=== PATIENT | female | born 1955 | race Caucasian/White ===

== ENCOUNTER → 2017-08-24 11:49 | Outpatient (CLI) | payer OTHER, SELFPAY ==
--- NOTE | 2017-08-24 | DI.MG.S_ITS ---
BILATERAL DIGITAL SCREENING MAMMOGRAM 3D/2D WITH CAD: 08/24/2017 CLINICAL: Routine screening. Comparison is made to exams dated: 08/02/2016 mammogram, 07/30/2015 mammogram, and 07/23/2014 mammogram - [facility]. The tissue of both breasts is heterogeneously dense. This may lower the sensitivity of mammography. Current study was also evaluated with a Computer Aided Detection (CAD) system. No significant masses, calcifications, or other findings are seen in either breast. There has been no significant interval change. IMPRESSION: NEGATIVE There is no mammographic evidence of malignancy. A 1 year screening mammogram is recommended. This exam was interpreted at Station ID: [id number]. NOTE: For mammograms, a report in lay terms will be sent to the patient. Approximately 15% of breast malignancies will not be visualized mammographically. In the management of a palpable breast mass, a negative mammogram must not discourage biopsy of a clinically suspicious lesion. Electronically Signed By: Manjinder montiel/sera:08/24/2017 16:56:02 letter sent: Normal Exam ACR BI-RADS Category 1: Negative 3341F
== END ==
PROVIDERS: PCP Family Medicine; Visit Provider Family Medicine
DX: Z12.31 Encounter for screening mammogram for malignant neoplasm of breast (principal)
CPT/HCPCS: 77063; 77067

== ENCOUNTER → 2017-09-21 11:42 | Outpatient (CLI) | payer OTHER, SELFPAY | PROVIDERS: Family Provider Internal Medicine; PCP Internal Medicine; Visit Provider Internal Medicine | DX: M54.10 Radiculopathy, site unspecified (principal) | CPT/HCPCS: 95885; 95886; 95911 ==

== ENCOUNTER → 2017-09-27 09:57 | Outpatient (CLI) | payer OTHER, SELFPAY ==
[2017-09-27 11:38] LABS: Thyroid Stimulating Hormone 0.03 uIU/mL (0.47-4.68)
== END ==
PROVIDERS: Family Provider Internal Medicine; PCP Internal Medicine; Visit Provider Internal Medicine
DX: G56.03 Carpal tunnel syndrome, bilateral upper limbs (principal)
CPT/HCPCS: 36415; 84443

== ENCOUNTER → 2017-09-28 11:46 | Outpatient (CLI) | payer OTHER, SELFPAY ==
[2017-09-28 13:21] LABS: Free T3, Triiodothyronine Free 3.17 pg/mL (2.77-5.27); Free T4, Direct Thyroxine 1.39 ng/dL (0.78-2.19)
[2017-09-28 13:35] LABS: Thyroid Stimulating Hormone 0.03 uIU/mL (0.47-4.68)
== END ==
PROVIDERS: Family Provider Internal Medicine; PCP Internal Medicine; Visit Provider Internal Medicine
DX: R79.89 Other specified abnormal findings of blood chemistry (principal)
CPT/HCPCS: 36415; 84439; 84443; 84481

== ENCOUNTER → 2017-11-01 14:30 | Outpatient (CLI) | payer OTHER, SELFPAY ==
[2017-11-01 15:47] LABS: Free T4, Direct Thyroxine 1.15 ng/dL (0.78-2.19)
[2017-11-01 16:01] LABS: Thyroid Stimulating Hormone 0.02 uIU/mL (0.47-4.68)
== END ==
PROVIDERS: Family Provider Specialist/Technologist Athletic Trainer; PCP Family Medicine; Visit Provider Internal Medicine
DX: R89.9 Unspecified abnormal finding in specimens from other organs, systems and tissues (principal)
CPT/HCPCS: 36415; 84439; 84443; 84481

== ENCOUNTER → 2017-11-02 11:39 | Outpatient (CLI) | payer OTHER, SELFPAY ==
[2017-11-02 14:46] LABS: Thyroid Stimulating Hormone 0.09 uIU/mL (0.47-4.68)
== END ==
PROVIDERS: Family Provider Specialist/Technologist Athletic Trainer; Visit Provider Internal Medicine
DX: R89.9 Unspecified abnormal finding in specimens from other organs, systems and tissues (principal)
CPT/HCPCS: 36415; 84443

== ENCOUNTER → 2018-04-12 13:46 | Outpatient (CLI) | payer MEDICARE, BC, SELFPAY | PROVIDERS: Family Provider Specialist/Technologist Athletic Trainer; PCP Student in an Organized Health Care Education/Training Program; Visit Provider Student in an Organized Health Care Education/Training Program | DX: Z13.820 Encounter for screening for osteoporosis (principal); M85.852 Other specified disorders of bone density and structure, left thigh; Z78.0 Asymptomatic menopausal state; M06.9 Rheumatoid arthritis, unspecified | CPT/HCPCS: 77080 ==

== ENCOUNTER → 2018-04-20 15:34 | Outpatient (CLI) | payer MEDICARE, BC, SELFPAY ==
--- NOTE | 2018-04-20 | DI.RAD.S_ITS ---
PROCEDURE: XR FOOT RT MIN 3V INDICATIONS: RHEUMATOID ARTHRITUS TECHNIQUE: 3 -views of the foot were acquired. COMPARISON: [facility], CR, XR FOOT LT MIN 3V, 04/20/2018, 15:51. FINDINGS: Bones: No fractures or dislocations. No suspicious bony lesions. Severe pes planus. There is diffuse midfoot joint degeneration, sclerosis. Diffuse interphalangeal and mild to moderate first MTP joint degeneration. Bunionette deformity of the fifth metatarsal. Flexion deformity of the second toe. Soft tissues: No tibiotalar joint effusion. Achilles tendon appears normal. IMPRESSION: Severe pes planus. Severe midfoot joint degeneration. Please correlate clinically to exclude neuropathic arthropathy. No definite erosions seen. Bunionette deformity of the fifth metatarsal Large plantar calcaneal spur Dictated by: Dayday Perales M.D. on 04/20/2018 at 17:05 Approved by: Dayday Perales M.D. on 04/20/2018 at 17:08
--- NOTE | 2018-04-20 | DI.RAD.S_ITS ---
PROCEDURE: XR FOOT LT MIN 3V INDICATIONS: RHEUMATOID ARTHRITUS TECHNIQUE: 3 views of the foot were acquired. COMPARISON: None. FINDINGS: Bones: No fractures or dislocations. No suspicious bony lesions. There is severe mid foot diffuse joint degeneration, sclerosis and spurring. Severe pes planus. No hallux valgus. Diffuse interphalangeal and first MTP joint degeneration. planus is seen. Periarticular osteopenia in particular at the fifth MTP joint. There are questionable marginal lucencies at the second and fifth MTP joint. Subluxation of the second TMT joint. Soft tissues: No tibiotalar joint effusion. Achilles tendon appears normal. IMPRESSION: Severe pes planus. Possible marginal lucencies seen at the second and fifth MTP joint raising the possibility of erosions Midfoot joint degeneration, including subluxation of the second TMT joint. Recommend clinical correlation to exclude neuropathic arthropathy. Diffuse interphalangeal and first MTP joint degeneration. Dictated by: Dayday Perales M.D. on 04/20/2018 at 16:46 Approved by: Dayday Perales M.D. on 04/20/2018 at 16:53
== END ==
PROVIDERS: Family Provider Specialist/Technologist Athletic Trainer; PCP Student in an Organized Health Care Education/Training Program; Referring Provider Orthopaedic Surgery; Visit Provider Specialist/Technologist Athletic Trainer
DX: M05.79 Rheumatoid arthritis with rheumatoid factor of multiple sites without organ or systems involvement (principal); M21.42 Flat foot [pes planus] (acquired), left foot; M19.072 Primary osteoarthritis, left ankle and foot; M19.071 Primary osteoarthritis, right ankle and foot; S93.322A Subluxation of tarsometatarsal joint of left foot, initial encounter; M21.622 Bunionette of left foot; M21.621 Bunionette of right foot; M77.31 Calcaneal spur, right foot
CPT/HCPCS: 73630

== ENCOUNTER → 2018-05-23 19:07 | Outpatient (CLI) | payer MEDICARE, BC, SELFPAY ==
--- NOTE | 2018-05-23 19:11 | DI.MRI.S_ITS ---
PROCEDURE: MR LUMBAR SPINE WO CON INDICATIONS: EVAL TECHNIQUE: Noncontrast sagittal T1 spin echo and T2 fast echo, sagittal STIR, axial T1 and T2 fast spin echo through the lumbar spine. In cases with scoliosis, additional coronal T2 fast spin echo may be performed. COMPARISON: [facility], MR, L-SPINE WITHOUT CONTRAST, 10/01/2013, 18:59. [facility], CR, L-SPINE 2-3 VIEWS, 09/20/2013, 11:28. FINDINGS: Image quality: Excellent. Alignment and Curvature: There is normal bony alignment. Bone Marrow: There is an intraosseous hemangioma in T12. Degenerative endplate signal changes are present. No acute vertebral body compression fractures. Spinal Cord: Conus medullaris terminates at the L1 level. Visualized cord demonstrates normal signal and size. Paraspinous Soft Tissues: No paravertebral masses. There are several right renal cysts. T12-L1: Mild loss of disc height and disc desiccation. There is mild posterior disc bulge. The central canal is patent. No foraminal stenosis. L1-L2: Moderate to severe loss of disc height and disc desiccation. There is diffuse posterior disc bulge. There is posterior central and bilateral posterolateral disc protrusion. Mild bilateral facet arthropathy. The central canal is mcyz-jy-vpfjuatzdm narrowed. Severe foraminal stenosis bilaterally. Compared to the last MRI on 10/01/2013, there is significant worsening of disc and facet degeneration. Central canal stenosis is new. L2-L3: Moderate loss of disc height and disc desiccation. There is diffuse posterior disc bulge. There is posterior central and left posterolateral disc protrusion. Mild bilateral facet arthropathy. The central canal is dazh-ae-gcudjtdtwb narrowed. Moderate left and mild right foraminal stenosis, unchanged. L3-L4: Moderate loss of disc height and disc desiccation. There is diffuse posterior disc bulge. There is posterior central and left posterolateral disc protrusion. Mild bilateral facet arthropathy. The central canal is mrsf-tv-qpkjewiyas narrowed. Severe left and mild right foraminal stenosis, increased. L4-L5: Severe loss of disc height and disc desiccation. There is diffuse posterior disc bulge and disc osteophyte complex. Mild bilateral facet arthropathy. The central canal is patent. Moderate bilateral foraminal stenosis, unchanged. L5-S1: Mild loss of disc height and disc desiccation. There is diffuse posterior disc bulge. Mild bilateral facet arthropathy. The central canal is patent. Mild bilateral foraminal stenosis, unchanged. IMPRESSION: 1. Progression of degenerative disc disease and facet arthropathy in lumbar spine as described. 2. Wxzk-xi-svmkmvlu central canal stenosis at L1-L2, L2-L3 and L3-L4. 3. Multiple foraminal stenosis as described, severe at L1-L2 bilaterally and L3-L4 on the left, moderate at L2-L3 on the left and L4-L5 bilaterally. Dictated by: Sophy Fowler M.D. on 05/24/2018 at 9:06 Approved by: Sophy Fowler M.D. on 05/24/2018 at 12:35
== END ==
PROVIDERS: Family Provider Student in an Organized Health Care Education/Training Program; PCP Student in an Organized Health Care Education/Training Program; Visit Provider Physical Medicine & Rehabilitation
DX: M47.27 Other spondylosis with radiculopathy, lumbosacral region (principal); M47.26 Other spondylosis with radiculopathy, lumbar region; M51.16 Intervertebral disc disorders with radiculopathy, lumbar region; M51.17 Intervertebral disc disorders with radiculopathy, lumbosacral region; M48.07 Spinal stenosis, lumbosacral region; M48.061 Spinal stenosis, lumbar region without neurogenic claudication
CPT/HCPCS: 72148

== ENCOUNTER 2018-07-05 11:23 | Outpatient (CLI) | payer MEDICARE, BC, SELFPAY ==
[2018-07-05] VITALS (8 sets, daily range): BP systolic 130–159; BP diastolic 75–89; PULSE 84–102; RESP 16–18; TEMP 36.2; O2SAT 94–97
--- NOTE | 2018-07-05 11:25 | DI.RAD.S_ITS ---
PROCEDURE: PAIN L/S TRANSFORAMINAL INJECT INDICATIONS: RADICULOPATHY FINDINGS: Fluoroscopic spot filming was performed to verify placement of spinal needles at the left L3-L4 level(s), as labeled on the films. Appropriate location(s) of the needle tip(s) was confirmed by injection of iodinated contrast. IMPRESSION: Fluoroscopy for pain management. Dictated by: Sophy Fowler M.D. on 07/05/2018 at 14:13 Approved by: Sophy Fowler M.D. on 07/05/2018 at 14:13
[2018-07-05] MEDS: MIDAZOLAM 5 MG/5 ML VIAL IV (12:05)
--- NOTE | 2018-07-05 12:20 | PM.PROC.1 ---
Procedures Date/Time Date of procedure: 07/05/18 Time of procedure: 12:20 General Procedure description: PROVIDER: Tanner Gillespie DO Operative Note PREOP DIAGNOSIS 1. FORAMINAL STENOSIS WITH LE SYMPTOMS, POST OP DIAGNOSIS 1. FORAMINAL STENOSIS WITH LE SYMPTOMS, PROCEDURES 1. FLUOROSCOPICALLY GUIDED CONTRAST CONTROLLED TRANSFORAMINAL EPIDURAL STEROID INJECTION - LEFT L3/4 TFESI SURGEON: Tanner Gillespie, DO INDICATIONS Ernestina is referred by Dr. Silva for treatment of HNP with left greater than right LE Symptoms FINDINGS Foraminal Nerve Root Compression secondary to disc disease and facet hypertrophy DESCRIPTION OF PROCEDURE Following denial of allergy and review of potential side effects and complications, including, but not necessarily limited to, infection, allergic reaction, local tissue breakdown, stroke, temporary or permanent nerve injury, paralysis, and possible , the patient indicated that the patient understood and agreed to proceed. An informed consent document was signed by the patient, witnessed by a nurse, and placed in the patient's chart. Additionally, other treatment options including medications, modalities, and physical therapy were reviewed with the patient. After review of previous anaesthesic history and IV conscious sedation the patient was deemed safe to proceed with todays procedure with IV conscious sedation as ASA class II designation. Safety time-out was performed to confirm patient ID, procedure to be performed and site of procedure. IV sedation was accomplished with a combination of 3mg of Versed was administered by the RN after DO order, titrated to patient comfort during the course of the procedure while the patient remained responsive to all verbal commands In the prone position following sterile prep and drape of the lumbar region, the left L3/4 posterior neuroforamen was identified fluoroscopically. The skin was anesthetized via a 25-gauge 1.5-inch needle with 1% lidocaine solution. At this point, a 25-gauge 3.5-inch spinal needle was atraumatically introduced and advanced under fluoroscopic guidance through the posterior left L3/4 neuroforamen to approximately the anterior aspect of the canal. Depth was confirmed on lateral view. Following negative aspiration, injection of approximately 1.5 cc of Isovue 200 under live fluoroscopy in the AP view confirmed excellent flow along the nerve root, into the epidural space without vascular or intrathecal uptake observed Radiological data, including multiple fluoroscopic views of the lumbosacral spine, reveal a spinal needle at the left L3/4 posterior neuroforamen. Subsequent views show flow of contrast material flowing superiorly and inferiorly along the nerve root confirming epidural flow. Subsequently, a test dose of 1.5 cc of 1% lidocaine solution was administered and patient was observed for two minutes for signs or symptoms of complications, including abdominal pain, shortness of breath, bilateral upper or lower extremity weakness, nausea and vomiting, prior to steroid injection. At this point, a total of 2cc or 20mg of dexamethasone was injected without incident. The patient tolerated the procedure well without signs or symptoms of complications prior to transfer to the recovery area continued monitoring without incident. The patient was then transferred to the recovery area where they were observed for an appropriate time after the injection. The patient reported a VAS score of 7 prior to the procedure and a post-procedure VAS of 0. Total Fluoroscopy Time: 24.2 seconds Total Conscious Sedation Time: 24min POST OP INSTRUCTIONS The patient was provided a Pain Log to continue to record their response to the target-specific procedure prior to follow-up visit with their referring physician. Additionally, specific post-injection care instructions and a contact number to our office were provided if concerns arise regarding possible complications associated with the procedure are suspected. Tanner Gillespie DO Complications: none
--- NOTE | 2018-07-05 12:24 | PC.NURSE ---
pt tolerated procedure well. Able to get off the table with standby assist. Transferred pt via wheelchair to pre procedure room for continued monitoring with Krystina PATEL.
[2018-07-05] MEDS: BETAMETHASONE 30 MG/5 ML MDV 6 MG INJ (12:27)
[2018-07-05] MEDS: BUPIVACAINE 0.25% (PF) VIAL 2 ML INJ (12:27)
[2018-07-05] MEDS: IOPAMIDOL 15 ML VIAL 3 ML INJ (12:27)
[2018-07-05] MEDS: DEXAMETHASONE 10 MG/ML VIAL 20 MG INJ (12:28)
== END 2018-07-05 13:28 | disposition home or self-care (01) ==
LOC: RAD 11:24
PROVIDERS: Family Provider Student in an Organized Health Care Education/Training Program; PCP Student in an Organized Health Care Education/Training Program; Visit Provider Physical Medicine & Rehabilitation
DX: M48.061 Spinal stenosis, lumbar region without neurogenic claudication (principal); M51.16 Intervertebral disc disorders with radiculopathy, lumbar region
CPT/HCPCS: 64483; 99152; J0702; J1100; J2250; J3010

== ENCOUNTER → 2018-08-02 15:31 | Outpatient (CLI) | payer MEDICARE, OTHER, SELFPAY ==
--- NOTE | 2018-08-02 15:34 | DI.RAD.S_ITS ---
PROCEDURE: XR CERVICAL SPINE 2V OR 3V INDICATIONS: neck pain TECHNIQUE: 3 view(s) of the cervical spine were acquired. COMPARISON: Located [facility] , C-SPINE COMPLETE 6 OR MORE VWS, 04/09/2015, 16:42. [facility], CERVICAL SPINE 2 OR 3 VIEWS, 08/25/2016, 15:42. FINDINGS: Bones: No definitive fractures or dislocations, but odontoid view is suboptimal. No suspicious bony lesions. There is grade 1 anterolisthesis of C4 on C5. There is severe bilateral facet arthropathy, most no set C3-C4 and C4-C5 on the left and C5-C6 on the right Soft tissues: No prevertebral soft tissue swelling. IMPRESSION: 1. Severe bilateral facet arthropathy. 2. Odontoid view is suboptimal. Dictated by: Sophy Fowler M.D. on 08/02/2018 at 16:53 Approved by: Sophy Fowler M.D. on 08/02/2018 at 16:56
== END ==
PROVIDERS: Family Provider Student in an Organized Health Care Education/Training Program; PCP Student in an Organized Health Care Education/Training Program; Visit Provider Nurse Practitioner Family
DX: M54.2 Cervicalgia (principal); M47.812 Spondylosis without myelopathy or radiculopathy, cervical region
CPT/HCPCS: 72040

== ENCOUNTER → 2018-08-14 08:18 | Outpatient (CLI) | payer MEDICARE, OTHER, SELFPAY ==
--- NOTE | 2018-08-14 08:19 | DI.MRI.S_ITS ---
PROCEDURE: MR SHOULDER LT WO CON INDICATIONS: Left shoulder weakness TECHNIQUE: Noncontrast oblique coronal T2 fast spin echo with fat saturation, oblique sagittal T1 spin echo and T2 fast spin echo with fat saturation, axial T1 spin echo and T2 fast spin echo with fat saturation through the shoulder. COMPARISON: [facility], MR, SHOULDER WITHOUT CONTRAST, 04/19/2013, 15:18. [facility], CR, XR SHOULDER MIN 2VW RT, 12/23/2015, 15:26. FINDINGS: Image quality: Excellent. Rotator cuff: There are full-thickness tear of the supraspinatus and infraspinatus subscapularis tendons with tendon retraction. The subscapularis tendon is torn. There is dislocation of the long head of the biceps tendon as it is the occipital groove. There is supraspinatus and infraspinatus muscle atrophy. Bones and bursae: No bone marrow contusions or fractures. There is superior subluxation of the humeral head at the glenohumeral joint. Severe glenohumeral and moderate acromioclavicular joint degeneration. There is small glenohumeral joint effusion. The acromion demonstrates conventional anatomy, without an os acromiale. No pathologic subacromial-subdeltoid or subcoracoid bursal fluid is present. Small joint effusion. Capsule and soft tissues: There is degenerative labral tear of the superior, anterior and posterior labrum. In the absence of intra-articular contrast, the glenohumeral ligaments appear intact. The long head of the biceps tendon is dislocated anteromedially. The rotator interval appears normal, without fibrosis. The coracohumeral ligament is normal in thickness. Mild edema in the deltoid muscle. IMPRESSION: 1. Full thickness tear of the supraspinatus, infraspinatus and subscapularis tendons. There is supraspinatus and infraspinatus tendon retraction and muscle atrophy. 2. Severe glenohumeral and moderate acromioclavicular joint degeneration. 3. Degenerative tear of the superior, anterior and posterior labrum. 4. Small glenohumeral joint effusion. 5. Mild edema in the deltoid muscle. Dictated by: Sophy Fowler M.D. on 08/14/2018 at 12:08 Approved by: Sophy Fowler M.D. on 08/14/2018 at 18:09
== END ==
PROVIDERS: PCP Student in an Organized Health Care Education/Training Program; Visit Provider Student in an Organized Health Care Education/Training Program
DX: R29.898 Other symptoms and signs involving the musculoskeletal system (principal); M75.122 Complete rotator cuff tear or rupture of left shoulder, not specified as traumatic; S43.492A Other sprain of left shoulder joint, initial encounter; M19.012 Primary osteoarthritis, left shoulder; M25.412 Effusion, left shoulder
CPT/HCPCS: 73221

== ENCOUNTER → 2018-08-28 08:25 | Outpatient (CLI) | payer MEDICARE, OTHER, SELFPAY ==
--- NOTE | 2018-08-28 | DI.MG.S_ITS ---
BILATERAL DIGITAL SCREENING MAMMOGRAM 3D/2D WITH CAD: 08/28/2018 CLINICAL: Routine screening. Comparison is made to exams dated: 08/24/2017 mammogram, 08/02/2016 mammogram, and 07/30/2015 mammogram - [facility]. The tissue of both breasts is heterogeneously dense. This may lower the sensitivity of mammography. Current study was also evaluated with a Computer Aided Detection (CAD) system. No significant masses, calcifications, or other findings are seen in either breast. There has been no significant interval change. IMPRESSION: NEGATIVE There is no mammographic evidence of malignancy. A 1 year screening mammogram is recommended. This exam was interpreted at Station ID: [id number]. NOTE: For mammograms, a report in lay terms will be sent to the patient. Approximately 15% of breast malignancies will not be visualized mammographically. In the management of a palpable breast mass, a negative mammogram must not discourage biopsy of a clinically suspicious lesion. Electronically Signed By: Sonia mi/sera:08/28/2018 10:22:48 letter sent: Normal Exam ACR BI-RADS Category 1: Negative 3341F
[2018-08-28 09:18] LABS: Hematocrit 35.6 % (36-46); Hemoglobin 11.8 g/dL (12.0-16.0); Mean Corpuscular HGB Conc 33.3 % (30-36); Mean Corpuscular Volume 90.3 fL (80-100); Platelet Count 223 X10^3/uL (150-400); Red Blood Cell Count 3.94 X10^6/uL (4.0-5.2); Red Cell Distribution Width 14.9 % (11.6-14.8); White Blood Cell Count 3.2 X10^3/uL (4.5-11.0)
[2018-08-28 09:34] LABS: BUN Creatinine Ratio 32.5 (6-22); Blood Urea Nitrogen 13 mg/dL (7-17); Calcium 9.5 mg/dL (8.4-10.2); Carbon Dioxide 29 mmol/L (22-32); Chloride 104 mmol/L (98-107); Estimated Glomerular Filt Rate > 60.0 mL/min (>60); Glucose 100 mg/dL (80-110); HEMOLYSIS < 15 (0-50); Potassium 3.9 mmol/L (3.4-5.1); Sodium 139 mmol/L (137-145)
== END ==
PROVIDERS: PCP Student in an Organized Health Care Education/Training Program; Visit Provider Student in an Organized Health Care Education/Training Program
DX: Z12.31 Encounter for screening mammogram for malignant neoplasm of breast (principal); Z01.810 Encounter for preprocedural cardiovascular examination; N14.1 Nephropathy induced by other drugs, medicaments and biological substances; T46.5X1A Poisoning by other antihypertensive drugs, accidental (unintentional), initial encounter
CPT/HCPCS: 36415; 77063; 77067; 80048; 85027

== ENCOUNTER → 2018-10-19 14:51 | Outpatient (CLI) | payer MEDICARE, OTHER, SELFPAY ==
--- NOTE | 2018-10-19 14:55 | DI.CT.S_ITS ---
PROCEDURE: CT ABDOMEN PELVIS W CON INDICATIONS: Abdominal pain TECHNIQUE: After the administration of intravenous contrast, 5 mm thick sections acquired from the diaphragm to the symphysis. 5 mm coronal and sagittal reformats were acquired. For radiation dose reduction, the following was used: automated exposure control, adjustment of mA and/or kV according to patient size. COMPARISON: None. FINDINGS: Image quality: Excellent. ABDOMEN: Lung bases: Lung bases are clear. Heart size is normal. Solid organs: Liver is normal in size and enhancement. Gallbladder is unremarkable. Biliary system is non dilated. Pancreas enhances normally. Spleen is normal in size and enhancement. No adrenal nodules. Kidneys demonstrate normal size and enhancement, without hydronephrosis. Peritoneum and bowel: Mild sigmoid diverticulosis no evidence of diverticulitis. Bowel loops demonstrate normal wall thickness and caliber. No free fluid or air. Nodes and vessels: No retroperitoneal or mesenteric adenopathy by size criteria. Aorta and inferior vena cava are normal in size. Miscellaneous: No ventral hernias. PELVIS: Genitourinary: Bladder wall thickness is normal. Miscellaneous: No inguinal hernias or adenopathy. Remote hysterectomy. On the sagittal reformatted images, extrinsic to the base of the bladder, and extending to the base of the bladder is an ill-defined soft tissue density. This is of uncertain significance. The bladder is distended. Bones: No suspicious bony lesions. No vertebral body compression fractures. IMPRESSION: 1. No evidence of acute appendicitis or diverticulitis. 2. Mild sigmoid diverticulosis. 3. Remote hysterectomy. 4. Ill-defined irregular soft tissue immediately inferior to the base the bladder extending to the base of the bladder may potentially be postsurgical in nature. However, cannot exclude a mass. Recommend correlation with pelvic exam. Dictated by: Bismark Aguilar M.D. on 10/19/2018 at 17:02 Approved by: Bismark Aguilar M.D. on 10/19/2018 at 17:16
== END ==
PROVIDERS: PCP Student in an Organized Health Care Education/Training Program; Visit Provider Student in an Organized Health Care Education/Training Program
DX: R10.9 Unspecified abdominal pain (principal); K57.30 Diverticulosis of large intestine without perforation or abscess without bleeding; Z90.710 Acquired absence of both cervix and uterus; Z92.89 Personal history of other medical treatment
CPT/HCPCS: 36415; 74177; 82565; 84520; Q9967

== ENCOUNTER → 2018-10-19 15:34 | Outpatient (CLI) | payer MEDICARE, OTHER, SELFPAY ==
[2018-10-19 16:12] LABS: BUN Creatinine Ratio 27.5 (6-22); Blood Urea Nitrogen 11 mg/dL (7-17); Estimated Glomerular Filt Rate > 60.0 mL/min (>60)
== END ==
PROVIDERS: PCP Student in an Organized Health Care Education/Training Program; Visit Provider Student in an Organized Health Care Education/Training Program
DX: R10.9 Unspecified abdominal pain (principal); Z92.89 Personal history of other medical treatment
CPT/HCPCS: 36415; 82565; 84520

== ENCOUNTER → 2019-07-10 07:47 | Outpatient (CLI) | payer MEDICARE, OTHER, SELFPAY ==
[2019-07-10 08:15] LABS: Add Manual Diff / Slide Review NO; Basophils Absolute Auto 0 /uL (0-100); Basophils Percent Auto 0.9 % (0-2); Eosinophils Absolute Auto 0 /uL (0-450); Eosinophils Percent Auto 0.6 % (2-4); Hemoglobin 11.1 g/dL (12.0-16.0); Lymphocytes Absolute Auto 900 /uL (1100-4500); Lymphocytes Percent Auto 22.8 % (25-40); Mean Corpuscular HGB Conc 33.5 % (30-36); Mean Corpuscular Hemoglobin 30.1 PG (26-34); Mean Corpuscular Volume 89.9 fL (80-100); Monocytes Absolute Auto 600 /uL (0-900); Monocytes Percent Auto 16.4 % (3-14); Neutrophils Absolute Auto 2300 /uL (1500-7000); Neutrophils Percent Auto 59.3 % (50-75); Platelet Count 223 X10^3/uL (150-400); Red Blood Cell Count 3.68 X10^6/uL (4.0-5.2); Red Cell Distribution Width 15.5 % (11.6-14.8); White Blood Cell Count 3.9 X10^3/uL (4.5-11.0)
[2019-07-10 08:34] LABS: Alanine Aminotransferase 22 IU/L (<35); Albumin 4.2 g/dL (3.5-5.0); Albumin Globulin Ratio 1.2 (1.0-2.8); Alkaline Phosphatase 56 U/L (38-126); Aspartate Aminotransferase 33 IU/L (14-36); BUN Creatinine Ratio 31.9 (6-22); Bilirubin Total 0.5 mg/dL (0.2-1.3); Blood Urea Nitrogen 15 mg/dL (7-17); Calcium 9.6 mg/dL (8.4-10.2); Carbon Dioxide 26 mmol/L (22-32); Chloride 107 mmol/L (98-107); Estimated Glomerular Filt Rate > 60.0 mL/min (>60); Globulin 3.5 g/dL (1.7-4.1); Glucose 99 mg/dL (80-110); HEMOLYSIS < 15 (0-50); Potassium 3.7 mmol/L (3.4-5.1); Sodium 138 mmol/L (137-145); Total Protein 7.7 g/dL (6.3-8.2)
[2019-07-10 08:36] LABS: C-Reactive Protein Quant < 0.5 mg/dL (<1.0)
[2019-07-10 08:40] LABS: Erythrocyte Sedimentation Rate 21 MM/HR (0-20)
== END ==
PROVIDERS: PCP Student in an Organized Health Care Education/Training Program; Referring Provider Internal Medicine Rheumatology; Visit Provider Internal Medicine Rheumatology
DX: M05.79 Rheumatoid arthritis with rheumatoid factor of multiple sites without organ or systems involvement (principal)
CPT/HCPCS: 36415; 80053; 85025; 85651; 86140

== ENCOUNTER → 2019-08-26 11:20 | Outpatient (CLI) | payer MEDICARE, BC, SELFPAY ==
[2019-08-27 15:41] LABS: COVID19 Sendout Not Detected (Not Detect)
== END ==
PROVIDERS: PCP Student in an Organized Health Care Education/Training Program; Visit Provider Physician Assistant
DX: Z01.812 Encounter for preprocedural laboratory examination (principal)
CPT/HCPCS: 87635

== ENCOUNTER 2019-08-28 08:02 | Day surgery (SDC) | payer MEDICARE, BC, SELFPAY ==
[2019-08-20 08:12] VITALS: BMI 30.2
[2019-08-28] MEDS: LACTATED RINGERS 1,000 ML 100 ML IV (08:15)
[2019-08-28 08:27] VITALS: BP 140/79; PULSE 55; RESP 16; TEMP 36.4; O2SAT 98
[2019-08-28 08:38] VITALS: BMI 30.2
--- NOTE | 2019-08-28 08:58 | PM.PREOP ---
Pre-operative Note COVID-19 COVID-19 status: Negative Result date/Date tested (Pos, Neg/Pending): 08/26/19 Interval Note History & Physical reviewed/Exam performed by Physician: Yes Changes to H&P: No
[2019-08-28] MEDS: CEFAZOLIN 2 GM/100 ML FROZ.PIGGY IV (09:02)
[2019-08-28] MEDS: metroNIDAZOLE 500 MG/100 ML PIGGYBACK 100 MG IV (09:12)
--- NOTE | 2019-08-28 09:27 | SUR.OPER ---
Prone on padded OR bed, head in foam head support, gel chest rolls, gel pad under knees, pillow under lower legs, toes free of pressure, arms secured on padded arm boards at <90 degrees abduction. Safety belt at thigh.
[2019-08-28] MEDS: DIBUCAINE 1% OINT 28 GM 1 APPLIC TOP (09:37)
[2019-08-28] MEDS: BUPIVACAINE LIPOSOME 266 MG/20 ML VIAL INJ (09:39)
--- NOTE | 2019-08-28 09:57 | P.OP_ITS ---
Operative Date/Time/Diagnoses Date of procedure: 08/28/19 Time of procedure: 09:57 Pre-op diagnosis: bleeding hemorrhoids Post-op diagnosis: other (circumferential grade 3 internal hemorrhoids with stigmata of bleeding at the posterior right column; moderate associated external hemorrhoids) Procedure & Clinicians Procedure: Internal and external Hemorrhoidectomy of 3 hemorrhoids columns Same procedure as scheduled: Yes Indications: This is a 64-year-old woman with symptomatic hemorrhoids with frequent bleeding Surgeon: Dionne Diaz Click Yes if Unassisted: Yes Anesthesia Type: General Operative Notes Findings: circumferentia grade 3 l internal hemorrhiods; moderate external hemorrhoids; 2-0 Vicryl sutures in base of left lateral and right anterior pedical Specimen(s): none sent Estimated Blood Loss (mL): 1 Procedure in detail: The patient was brought into the OR. Sequential compression devices were placed on both legs and turned on. Appropriate perioperative antibiotics were given. General anesthesia was induced and the patient was intubated. The patient was turned prone onto the OR table. All bony prominences were padded. The buttocks were taped apart. The perianal area was prepped and draped in sterile fashion with betadine prep. Surgical timeout was conducted. 0.25% Marcaine with epi was used to perform a four quadrant anal block using 5mL per quadrant for a total of 20mL. On external exam there were moderate external hemorrhoids seen. With copious lubricant, an anorectal exam was performed. Large internal hemorrhoids were seen circumferentially. The right posterior external hemorrhoid was grasped with an Allis clamp and dissected away from the sphincter muscles. Dissection was carried down to include the associated internal hemorrhoid, and the pedicle was sealed and divided, and the entire hemorrhoidal column was removed. The right anterior external hemorrhoid was grasped with an Allis clamp and dissected away from the sphincter muscles. Dissection was carried down to include the associated internal hemorrhoid, and the pedicle was sealed and divid ed, and the entire hemorrhoidal column was removed. The left lateral external hemorrhoid was grasped with an Allis clamp and dissected away from the sphincter muscles. Dissection was carried down to include the associated internal hemorrhoid, and the pedicle was sealed and divided, and the entire hemorrhoidal column was removed. A 2 0 Vicryl suture was used to suture the base of the pedicle at the right anterior and left lateral positions to ensure hemostasis. Good hemostasis was seen circumferentially, and all hemorrhoidal tissue was controlled. 20mL of Exparel was used to inject the anoderm and anal canal circumferentially 2-3mL per cm. A large Gelfoam was then coated and rolled with Dibucaine and placed in the anal canal. A thick layer of Dibucaine was used to coat the anoderm. A stack of 4x4 gauze was then used to cover the anal opening and secured in place with medipore tape. The patient was transferred onto her hospital bed into supine position. She was then awakened from anesthesia and extubated. Needle, sponge, and instrument counts were correct x 2. The patient was transferred to the PACU in stable condition. Complications: none Post-operative Condition: stable Disposition: PACU
[2019-08-28 09:58] VITALS: BP 111/62; PULSE 107; RESP 12; TEMP 36.2; O2SAT 98
[2019-08-28] MEDS: BUPIVACAINE 0.25% W/ EPI 30 ML VIAL INJ (09:59)
[2019-08-28 10:03] VITALS: BP 124/60; PULSE 102; RESP 15; O2SAT 96
[2019-08-28 10:08] VITALS: BP 127/71; PULSE 99; RESP 15; O2SAT 95
[2019-08-28 10:13] VITALS: BP 135/78; PULSE 87; RESP 15; O2SAT 94
--- NOTE | 2019-08-28 10:16 | SUR.PHASEI ---
Patient denies any pain and is sitting up talking, eating ice chips without difficulty. VSS. Dressing to rectal area CDI.
[2019-08-28 10:18] VITALS: BP 131/73; PULSE 84; RESP 13; O2SAT 94
== END 2019-08-28 11:00 | disposition home or self-care (01) ==
LOC: OR 08:05
PROVIDERS: PCP Student in an Organized Health Care Education/Training Program; Referring Provider Surgery; Visit Provider Surgery
PROC: (CPT 46260; principal; 2019-08-28 09:15)
DX: K64.2 Third degree hemorrhoids (principal); K64.4 Residual hemorrhoidal skin tags; M79.7 Fibromyalgia; K21.9 Gastro-esophageal reflux disease without esophagitis; I10 Essential (primary) hypertension
CPT/HCPCS: 46260; C9290; J0690; J1100; J2250; J2405; J2704; J3010

== ENCOUNTER → 2019-09-28 14:48 | Outpatient (CLI) | payer MEDICARE, BC, SELFPAY ==
--- NOTE | 2019-09-28 | DI.MG.S_ITS ---
BILATERAL DIGITAL SCREENING MAMMOGRAM 3D/2D WITH CAD: 09/28/2019 CLINICAL: Routine screening. Comparison is made to exams dated: 08/28/2018 mammogram, 08/24/2017 mammogram, and 08/02/2016 mammogram - [facility]. The tissue of both breasts is heterogeneously dense. This may lower the sensitivity of mammography. Current study was also evaluated with a Computer Aided Detection (CAD) system. No significant masses, calcifications, or other findings are seen in either breast. There has been no significant interval change. IMPRESSION: NEGATIVE There is no mammographic evidence of malignancy. A 1 year screening mammogram is recommended. This exam was interpreted at Station ID: [id number]. NOTE: For mammograms, a report in lay terms will be sent to the patient. Approximately 15% of breast malignancies will not be visualized mammographically. In the management of a palpable breast mass, a negative mammogram must not discourage biopsy of a clinically suspicious lesion. Electronically Signed By: Daljit pascal/sera:09/30/2019 09:46:43 letter sent: Normal Exam ACR BI-RADS Category 1: Negative 3341F
== END ==
PROVIDERS: PCP Student in an Organized Health Care Education/Training Program; Referring Provider Student in an Organized Health Care Education/Training Program; Visit Provider Student in an Organized Health Care Education/Training Program
DX: Z12.31 Encounter for screening mammogram for malignant neoplasm of breast (principal)
CPT/HCPCS: 77063; 77067

== ENCOUNTER → 2019-11-06 10:13 | Outpatient (CLI) | payer MEDICARE, BC, SELFPAY ==
--- NOTE | 2019-11-06 10:41 | DI.RAD.S_ITS ---
PROCEDURE: XR THORACIC SPINE 3V INDICATIONS: Eval TECHNIQUE: 3 views of the thoracic spine were acquired. COMPARISON: None. FINDINGS: Bones: No fractures or dislocations. No suspicious bony lesions. Twelve pairs of ribs are noted, and appear intact where visualized. Zjww-cx-yefuxyxh degenerative disc disease along the thoracic spine. There is a mild degree of convex leftward scoliosis at the thoracolumbar junction. No compression fracture suspected, Soft tissues: No paravertebral stripe thickening. IMPRESSION: Euav-bm-gdnxbudc degenerative disc disease along the thoracic spine but no acute disease or evidence of definite spinal and foraminal stenosis. Dictated by: Ac Earl M.D. on 11/06/2019 at 13:02 Approved by: Ac Earl M.D. on 11/06/2019 at 13:03
--- NOTE | 2019-11-06 10:41 | DI.RAD.S_ITS ---
PROCEDURE: XR LUMBAR SPINE MIN 4V INDICATIONS: Eval TECHNIQUE: 4 views of the lumbar spine were acquired. COMPARISON: , , L-SPINE 2-3 VIEWS, 09/20/2013, 11:28. FINDINGS: Bones: 5 nonrib-bearing vertebrae are present. There is normal bony alignment. No vertebral body compression fractures. No suspicious bony lesions. Overall there is a moderate to moderately severe degree of degenerative disc height reduction and moderate facet osteoarthritis best seen from L3 through S1. Soft tissues: Overlying bowel gas pattern is normal. No suspicious soft tissue calcifications. Oblique images: No pars defects. IMPRESSION: Moderate degenerative disc disease overall, from the thoracolumbar junction through the lumbosacral junction. No acute trauma found, facet osteoarthritis becomes progressively more prominent from L3 through S1. Spinal and foraminal stenosis likely is present at least at L4-5 and L5-S1. Dictated by: Ac Earl M.D. on 11/06/2019 at 13:00 Approved by: Ac Earl M.D. on 11/06/2019 at 13:02
== END ==
PROVIDERS: PCP Student in an Organized Health Care Education/Training Program; Referring Provider Student in an Organized Health Care Education/Training Program; Visit Provider Student in an Organized Health Care Education/Training Program
DX: M85.852 Other specified disorders of bone density and structure, left thigh (principal); Z78.0 Asymptomatic menopausal state; M06.9 Rheumatoid arthritis, unspecified; M47.27 Other spondylosis with radiculopathy, lumbosacral region; M47.26 Other spondylosis with radiculopathy, lumbar region; M51.17 Intervertebral disc disorders with radiculopathy, lumbosacral region; M51.16 Intervertebral disc disorders with radiculopathy, lumbar region; M51.14 Intervertebral disc disorders with radiculopathy, thoracic region; M41.85 Other forms of scoliosis, thoracolumbar region
CPT/HCPCS: 72072; 72110; 77080

== ENCOUNTER → 2019-11-17 11:49 | Outpatient (CLI) | payer MEDICARE, BC, SELFPAY ==
[2019-11-18 09:44] LABS: COVID19 Sendout Not Detected (Not Detect)
== END ==
PROVIDERS: PCP Student in an Organized Health Care Education/Training Program; Visit Provider Nurse Practitioner
DX: Z11.59 Encounter for screening for other viral diseases (principal)
CPT/HCPCS: 87635

== ENCOUNTER 2019-11-20 09:23 | Day surgery (SDC) | payer MEDICARE, BC, SELFPAY ==
[2019-11-15 08:45] VITALS: BMI 30.2
[2019-11-20] VITALS (7 sets, daily range): BP systolic 129–148; BP diastolic 76–88; PULSE 86–107; RESP 12–17; TEMP 36.6; O2SAT 92–97; BMI 30.9
[2019-11-20] MEDS: LACTATED RINGERS 1,000 ML 100 ML IV (10:15)
[2019-11-20] MEDS: levoFLOXacin 500 MG/100 ML PIGGYBACK 100 MG IV (10:36)
--- NOTE | 2019-11-20 10:48 | PM.PREOP ---
Pre-operative Note COVID-19 COVID-19 status: Negative Result date/Date tested (Pos, Neg/Pending): 11/17/19 Interval Note History & Physical reviewed/Exam performed by Physician: Yes Changes to H&P: No
[2019-11-20] MEDS: metroNIDAZOLE 500 MG/100 ML PIGGYBACK 100 MG IV (11:24)
--- NOTE | 2019-11-20 11:37 | PM.OP.1 ---
Operative Date/Time/Diagnoses Date of procedure: 11/20/19 Time of procedure: 11:37 Pre-op diagnosis: anal stenosis Post-op diagnosis: other (anal stenosis secondary to scarring of the anoderm) Procedure & Clinicians Procedure: Anorectal exam under anesthesia; repair of anal stenosis Same procedure as scheduled: Yes Indications: Anal stenosis Surgeon: Dionne Daiz Click Yes if Unassisted: Yes Anesthesia Type: General Operative Notes Findings: Stenosis of the anal opening Specimen(s): none sent Estimated Blood Loss (mL): 1 Procedure in detail: The patient was brought into the OR. Sequential compression devices were placed on both legs and turned on. Appropriate perioperative antibiotics were given. General anesthesia was induced and the patient was intubated. The patient was turned prone onto the OR table. All bony prominences were padded. The buttocks were taped apart. The perianal area was prepped and draped in sterile fashion with betadine prep. Surgical timeout was conducted. On external exam there were external hemorrhoid remnant tags, without bleeding or thrombosis. The anoderm was scarred from prior hemorrhoidectomy with a tight opening that would only emit the tip of my index finger. There was a lip of scar tissue at the anterior midline anoderm which was the location of the greatest tension. Local anesthetic was infiltrated at this site. A 15 blade was used to divide the scarred anoderm and relieve the stenosis. Cuatery was used to achieve hemostasis. Muscle tissue was not exposed. A rectal exam was then performed with well lubed index finger. I was now able to get two fingers in the anal canal, and was able to dilate up to three fingers. The sphincter muscle did not seem overly tight. Given the patient's history of mild leakage since her hemorrhoidectomy, I did not see a reason to perform a sphinctertomy. 20mL of Exparel was used to inject the anoderm and anal canal circumferentially 2-3mL per cm. A large Gelfoam was then coated and rolled with Dibucaine and placed in the anal canal. A thick layer of Dibucaine was used to coat the anoderm. A stack of 4x4 gauze was then used to cover the anal opening and secured in place with medipore tape. The patient was transferred onto her hospital bed into supine position. She was then awakened from anesthesia and extubated. Needle, sponge, and instrument counts were correct x 2. The patient was transferred to the PACU in stable condition. Complications: none Post-operative Condition: stable Disposition: PACU
[2019-11-20] MEDS: BUPIVACAINE 0.25% W/ EPI 30 ML VIAL 10 ML INJ (11:53)
[2019-11-20] MEDS: OXYCODONE/ACETAMINOPHEN 5/325 TABLET 1 TAB PO (12:11)
== END 2019-11-20 13:42 | disposition home or self-care (01) ==
PROVIDERS: PCP Student in an Organized Health Care Education/Training Program; Referring Provider Surgery; Visit Provider Surgery
PROC: (CPT 46080; principal; 2019-11-20 11:15)
DX: K62.4 Stenosis of anus and rectum (principal); I10 Essential (primary) hypertension; K21.9 Gastro-esophageal reflux disease without esophagitis
CPT/HCPCS: 45500; J0330; J1100; J1956; J2405; J2704; J3010

== ENCOUNTER → 2019-12-30 15:18 | Outpatient (CLI) | payer MEDICARE, BC, SELFPAY ==
[2019-12-30 17:42] LABS: COVID19 -Nasal RAPID Negative (Negative)
== END ==
PROVIDERS: PCP Student in an Organized Health Care Education/Training Program; Visit Provider Physician Assistant
DX: Z11.59 Encounter for screening for other viral diseases (principal)
CPT/HCPCS: 87635

== ENCOUNTER → 2019-12-31 13:58 | Outpatient (CLI) | payer MEDICARE, OTHER, SELFPAY ==
[2019-12-31 15:17] LABS: Blood Urea Nitrogen 12 mg/dL (7-17); Calcium 9.4 mg/dL (8.4-10.2); Carbon Dioxide 29 mmol/L (22-32); Chloride 103 mmol/L (98-107); Estimated Glomerular Filt Rate > 60.0 mL/min (>60); Glucose 126 mg/dL (80-110); HEMOLYSIS < 15 (0-50); Potassium 3.1 mmol/L (3.4-5.1); Sodium 135 mmol/L (137-145)
[2019-12-31 15:24] LABS: NT-proBNP (BNP-Adult 18+) 29 pg/mL (<125)
== END ==
PROVIDERS: PCP Student in an Organized Health Care Education/Training Program; Referring Provider Student in an Organized Health Care Education/Training Program; Visit Provider Student in an Organized Health Care Education/Training Program
DX: I10 Essential (primary) hypertension (principal); R60.9 Edema, unspecified; I16.0 Hypertensive urgency
CPT/HCPCS: 36415; 80048; 83880

== ENCOUNTER 2019-12-31 15:24 | Outpatient (CLI) | payer MEDICARE, OTHER, SELFPAY ==
[2019-12-31] VITALS (11 sets, daily range): BP systolic 132–183; BP diastolic 81–101; PULSE 91–104; RESP 18–20; TEMP 36.1–36.6; O2SAT 93–100
--- NOTE | 2019-12-31 15:26 | DI.RAD.S_ITS ---
PROCEDURE: PAIN L/S TRANSFORAMINAL INJECT INDICATIONS: SPONDYLOSIS COMPARISON: [facility], , PAIN L/S TRANSFORAMINAL INJECT, 07/05/2018, 12:12. FINDINGS: Fluoroscopic spot filming was performed to verify placement of a spinal needle at the L3-4 level, as labeled on the films. Appropriate location of the needle tip was confirmed by injection of iodinated contrast. IMPRESSION: Intraprocedural examination within normal limits. Dictated by: Spenser Denson M.D. on 12/31/2019 at 16:24 Approved by: Spenser Denson M.D. on 12/31/2019 at 16:25
[2019-12-31] MEDS: MIDAZOLAM 5 MG/5 ML VIAL IV (16:08)
[2019-12-31] MEDS: fentaNYL 100 MCG/2 ML INJ 50 MCG IV (16:08)
[2019-12-31] MEDS: IOPAMIDOL 15 ML VIAL 3 ML INJ (16:11)
[2019-12-31] MEDS: BETAMETHASONE 30 MG/5 ML MDV 6 MG INJ (16:12)
[2019-12-31] MEDS: BUPIVACAINE 0.25% (PF) VIAL 2 ML INJ (16:12)
[2019-12-31] MEDS: DEXAMETHASONE 10 MG/ML VIAL 20 MG INJ (16:13)
--- NOTE | 2019-12-31 16:33 | P.PCN_ITS ---
Date/Time/Diagnoses Date of procedure: 12/31/19 Time of procedure: 16:33 Pre-procedure diagnosis: 1. FORAMINAL STENOSIS WITH LE SYMPTOMS Post-procedure diagnosis: same Procedure Notes Procedure: 1. FLUOROSCOPICALLY GUIDED CONTRAST CONTROLLED TRANSFORAMINAL EPIDURAL STEROID INJECTION - LEFT L3/4 TFESI Indications: Ernestina is referred by Dr. Silva for treatment of Foraminal Stenosis with left LE Symptoms Physician: Tanner Gillespie Total Fluoroscopy time (seconds): 23 Total sedation minutes: 19 Complications: none Procedure in detail & Post-procedure care: FINDINGS Foraminal Nerve Root Compression secondary to disc disease and facet hypertrophy DESCRIPTION OF PROCEDURE Following review of allergy and review of potential side effects and complications, including, but not necessarily limited to, infection, allergic reaction, local tissue breakdown, stroke, temporary or permanent nerve injury, paralysis, and possible , the patient indicated that the patient understood and agreed to proceed. An informed consent document was signed by the patient, witnessed by a nurse, and placed in the patient's chart. Additionally, other treatment options including medications, modalities, and physical therapy were reviewed with the patient. After review of previous anaesthesic history and IV conscious sedation the patient was deemed safe to proceed with today?s procedure with IV conscious sedation as ASA class II designation. Safety time-out was performed to confirm patient ID, procedure to be performed and site of procedure. IV sedation was accomplished with a combination of 3mg of Versed and 50mcg of Fentanyl was administered by the RN after DO order, titrated to patient comfort during the course of the procedure while the patient remained responsive to all verbal comm ands In the prone position following sterile prep and drape of the lumbar region, the left L3/4 posterior neuroforamen was identified fluoroscopically. The skin was anesthetized via a 25-gauge 1.5-inch needle with 1% lidocaine solution. At this point, a 25-gauge 3.5-inch spinal needle was atraumatically introduced and advanced under fluoroscopic guidance through the posterior left L3/4 neurofor amen to approximately the anterior aspect of the canal. Depth was confirmed on lateral view. Following negative aspiration, injection of approximately 1.5 cc of Isovue 200 under live fluoroscopy in the AP view confirmed excellent flow along the nerve root, into the epidural space without vascular or intrathecal uptake observed Radiological data, including multiple fluoroscopic views of the lumbosacral spine, reveal a spinal needle at the left L3/4 posterior neuroforamen. Subsequent views show flow of contrast material flowing superiorly and inferiorly along the nerve root confirming epidural flow. Subsequently, a test dose of 1.5cc of 1% lidocaine solution was administered and patient was observed for two minutes for signs or symptoms of complications, including abdominal pain, shortness of breath, bilateral upper or lower extremity weakness, nausea and vomiting, prior to steroid injection. At this point, a total of 3cc or 20mg of dexamethasone and 6mg betamethasone was injec jermain without incident. The patient tolerated the procedure well without signs or symptoms of complications prior to transfer to the recovery area continued monitoring without incident. The patient was then transferred to the recovery area where they were observed for an appropriate time after the injection. The patient reported a VAS score of 7 prior to the procedure and a post-procedure VAS of 0. POST OP INSTRUCTIONS The patient was provided a Pain Log to continue to record their response to the target-specific procedure prior to follow-up visit with their referring physician. Additionally, specific post-injection care instructions and a contact number to our office were provided if concerns arise regarding possible complications associated with the procedure are suspected.
--- NOTE | 2019-12-31 17:04 | PC.NURSE ---
pt ready to go at 1650. 30 minutes away. pot fully recovered
== END 2019-12-31 17:07 | disposition home or self-care (01) ==
LOC: RAD 15:26
PROVIDERS: PCP Student in an Organized Health Care Education/Training Program; Referring Provider Physical Medicine & Rehabilitation; Visit Provider Physical Medicine & Rehabilitation
DX: M48.061 Spinal stenosis, lumbar region without neurogenic claudication (principal); M51.16 Intervertebral disc disorders with radiculopathy, lumbar region
CPT/HCPCS: 64483; 99152; J0702; J1100; J2250; J3010

== ENCOUNTER → 2020-04-16 15:26 | Outpatient (CLI) | payer MEDICARE, OTHER, SELFPAY ==
--- NOTE | 2020-04-16 15:32 | DI.RAD.S_ITS ---
PROCEDURE: XR CERVICAL SPINE 4V OR 5V INDICATIONS: progressive neck pain and paresthesias TECHNIQUE: 5 views of the cervical spine acquired. COMPARISON: [facility], CR, XR CERVICAL SPINE 2V OR 3V, 08/02/2018, 15:36. FINDINGS: Bones: No fractures or dislocations to the T1 level. Oblique images demonstrate moderate bony foraminal stenoses symmetric bilaterally at C 3 4 and C4-5 and to a slightly lesser degree C5-6. This correlates with the areas of maximal facet osteoarthritis seen on the frontal projection and lateral projection views.. Soft tissues: No prevertebral soft tissue swelling. IMPRESSION: Moderately severe to severe degenerative disc disease and facet osteoarthritis over the middle 3rd of the cervical spine, with foraminal stenosis visible on the oblique views and likelihood of spinal stenosis at the mid cervical spine also. MRI scanning may be warranted. Dictated by: Ac Earl M.D. on 04/16/2020 at 16:01 Approved by: Ac Earl M.D. on 04/16/2020 at 16:03
== END ==
PROVIDERS: PCP Student in an Organized Health Care Education/Training Program; Referring Provider Physical Medicine & Rehabilitation; Visit Provider Physical Medicine & Rehabilitation
DX: M47.22 Other spondylosis with radiculopathy, cervical region (principal); M50.120 Mid-cervical disc disorder, unspecified level; M48.02 Spinal stenosis, cervical region
CPT/HCPCS: 72050

== ENCOUNTER → 2020-05-18 11:47 | Outpatient (CLI) | payer MEDICARE, OTHER, SELFPAY ==
--- NOTE | 2020-05-18 11:49 | DI.MRI.S_ITS ---
PROCEDURE: MR CERVICAL SPINE WO CON INDICATIONS: Cervical radiculopathy TECHNIQUE: Noncontrast sagittal T1 spin echo and T2 fast spin echo, sagittal STIR, foraminal oblique sagittal T2 fast spin echo, and axial gradient echo or T2 fast spin echo through the cervical spine. COMPARISON: [facility], CR, XR CERVICAL SPINE 4V OR 5V, 04/16/2020, 15:33. [facility], MR, MR CERVICAL SPINE WO CON, 12/25/2015, 12:59. FINDINGS: Image quality: Diagnostic, with note made of motion artifact. Alignment and Curvature: There is normal bony alignment. Bone Marrow: Marrow demonstrates normal overall signal. Spinal Cord: Visualized spinal cord has normal size and signal. No cerebellar tonsillar herniation. Paraspinous Soft Tissues: No paravertebral masses. Prevertebral soft tissues are normal in thickness. Focal pannus with potential erosive changes can be seen surrounding the dens, as on series 3, image 8. C2-C3: The disc height is well-preserved. Loss of disc signal is seen at this level. Mild to moderate disc osteophyte complex is seen, which is eccentric to left. There is moderate to prominent left-sided and mild right-sided facet hypertrophy seen. There is moderate left-sided and no significant right-sided neural foraminal narrowing seen. Minimal central canal narrowing is seen. C3-C4: The disc height is well-preserved. Loss of disc signal is seen at this level. Moderate generalized disc osteophyte complex is seen, which is eccentric to the left, with a left lateral recess disc osteophyte protrusion, as on series 4, image 17. There is prominent left-sided and [id number] right-sided facet hypertrophy seen. There is moderate to severe left-sided and no significant right-sided neural foraminal narrowing seen. No significant central canal narrowing is seen at this level. C4-C5: The disc height is well-preserved. Loss of disc signal is seen at this level. A mild degree of generalized disc osteophyte complex is seen. There is moderate right-sided and moderate to prominent left-sided facet hypertrophy seen. There is moderate to severe left-sided and at least moderate right-sided neural foraminal narrowing seen. Mild central canal narrowing is seen. C5-C6: The disc height is well-preserved. Loss of disc signal is seen at this level. Mild to moderate disc osteophyte complex is seen. There is prominent right-sided and moderate left-sided facet hypertrophy seen. There is moderate to severe right-sided and no significant left-sided neural foraminal narrowing seen at this level. Mild to moderate central canal narrowing is seen. C6-C7: The disc height is well-preserved. Loss of disc signal is seen at this level. Moderate generalized disc osteophyte complex is seen. Moderate facet joint hypertrophy is seen. There is [id number] right-sided and minimal left-sided neural foraminal narrowing seen. Mild central canal narrowing is seen. C7-T1: No significant abnormality is seen. IMPRESSION: Multiple levels of cervical spine degenerative change are seen, which have overall progressed compared to 2016. Dictated by: Spenser Denson M.D. on 05/18/2020 at 13:24 Approved by: Spenser Denson M.D. on 05/18/2020 at 13:29
== END ==
PROVIDERS: PCP Student in an Organized Health Care Education/Training Program; Referring Provider Physical Medicine & Rehabilitation; Visit Provider Physical Medicine & Rehabilitation
DX: M47.22 Other spondylosis with radiculopathy, cervical region (principal)
CPT/HCPCS: 72141

== ENCOUNTER → 2020-06-16 08:41 | Outpatient (CLI) | payer MEDICARE, OTHER, SELFPAY ==
[2020-06-16 12:18] LABS: COVID19 -Nasal RAPID Negative (Negative)
== END ==
PROVIDERS: PCP Student in an Organized Health Care Education/Training Program; Visit Provider Physical Medicine & Rehabilitation
DX: Z20.822 Contact with and (suspected) exposure to COVID-19 (principal)
CPT/HCPCS: 87635; C9803

== ENCOUNTER 2020-06-18 10:21 | Outpatient (CLI) | payer MEDICARE, OTHER, SELFPAY ==
[2020-06-18] VITALS (8 sets, daily range): BP systolic 102–143; BP diastolic 55–79; PULSE 79–92; RESP 14–22; TEMP 36.1–36.5; O2SAT 94–98
--- NOTE | 2020-06-18 10:25 | DI.RAD.S_ITS ---
PROCEDURE: PAIN L/S FACET INJ/BLK 1ST DAT COMPARISON: [facility], XA, PAIN L/S TRANSFORAMINAL INJECT, 12/31/2019, 16:09. [facility], CR, XR LUMBAR SPINE MIN 4V, 11/06/2019, 10:39. INDICATIONS: SPONDYLOSIS FINDINGS: 6 intraoperative fluoroscopy images demonstrate needle placement at L2-L3 and L3-L4 facet joints bilaterally. IMPRESSION: Fluoroscopy for pain management. Dictated by: Sophy Fowler M.D. on 06/18/2020 at 15:49 Approved by: Sophy Fowler M.D. on 06/18/2020 at 15:50
[2020-06-18] MEDS: fentaNYL 100 MCG/2 ML INJ 50 MCG IV (11:09)
[2020-06-18] MEDS: MIDAZOLAM 5 MG/5 ML VIAL IV (11:09)
[2020-06-18] MEDS: IOPAMIDOL 15 ML VIAL 3 ML INJ (11:13)
[2020-06-18] MEDS: BETAMETHASONE 30 MG/5 ML MDV 12 MG INJ (11:13)
[2020-06-18] MEDS: BUPIVACAINE 0.5% (PF) VIAL 2 ML INJ (11:13)
[2020-06-18] MEDS: LIDOCAINE 1% 20 ML 10 ML INJ (11:14)
--- NOTE | 2020-06-18 11:26 | P.PCN_ITS ---
Date/Time/Diagnoses Date of procedure: 06/18/20 Time of procedure: 11:26 Pre-procedure diagnosis: 1. FACET ARTHROPATHY 2. AXIAL LBP 3. MULTILEVEL DDD Post-procedure diagnosis: same Procedure Notes Procedure: 1. FLUOROSCOPICALLY GUIDED CONTRAST CONTROLLED FACET JOINT INJECTIONS BILATERAL L2/3, L3/4 Indications: Ernestina is referred by Dr. Silva for treatment of Axial LBP Physician: Tanner Gillespie Total Fluoroscopy time (seconds): 13 Total sedation minutes: 14 Complications: none Procedure in detail & Post-procedure care: FINDINGS Multilevel Facet Arthropathy with Clinically significant axial LBP DESCRIPTION OF PROCEDURE Fluoroscopically guided, contrast-controlled bilateral L2/3, L3/4 facet joint injections. Following review of allergy and review of potential side effects and complications, including, but not necessarily limited to, infection, allergic reaction, local tissue breakdown, stroke, temporary or permanent nerve injury, paralysis, and possible , the patient indicated that the patient understood and agreed to proceed. An informed consent document was signed by the patient, witnessed by a nurse, and placed in the patient's chart. Additionally, other treatment options including medications, modalities, and physical therapy were reviewed with the patient. After review of previous anaesthesic history and IV conscious sedation the patient was deemed safe to proceed with today's procedure with IV conscious sedation as ASA class II designation. Safety time-out was performed to confirm patient ID, procedure to be performed and site of procedure. IV sedation was accomplished with a combination of 3mg of Versed and 50mcg of Fentanyl administered by the RN after DO order, titrated to patient comfort during the course of the procedure while the patient remained responsive to all verbal commands In the prone position, following sterile prep and drape of the lumbar region, the posterior aspect of the L2/3, L3/4 facet joints were identified fluoroscopically. The skin was anesthetized via a 25-gauge 1.5-inch needle with 1% lidocaine solution into the corresponding facet joints. At this point, a 22- gauge 3.5-inch spinal needle was atraumatically introduced and advanced under fluoroscopic guidance into the corresponding facet joints. Following negative aspiration, injections of approximately 0.2cc of Isovue 200 confirmed interartic ular placement without vascular uptake. The identical procedure was then performed at the L2/3, L3/4 facet joints on the left. Radiological data, including multiple fluoroscopic views of the lumbosacral spine, reveal a spinal needle at the L2/3, L3/4 facet joints bilaterally. Subsequent views show flow of contrast material both superiorly and inferiorly within the joint space without vascular or intrathecal uptake. At this point, a total of 0.5cc including a mixture of 0.25cc Marcaine and 0.25cc betamethasone was injected without complication into each of the corresponding facet joints. The patient tolerated the procedure well without signs or symptoms of complications prior to transfer to the recovery area continued monitoring without incident. The patient was then transferred to the recovery area where they were observed for an appropriate period of time after the injection. The patient reported a VAS score of 7 prior to the procedure and a post-procedure VAS of 0. POST OP INSTRUCTIONS The patient was provided a Pain Log to continue to record their response to the target-specific procedure prior to follow-up visit with their referring physic phuc. Additionally, specific post-injection care instructions and a contact number to our office were provided if concerns arise regarding possible complications associated with the procedure are suspected.
== END 2020-06-18 11:42 | disposition home or self-care (01) ==
LOC: RAD 10:25
PROVIDERS: PCP Student in an Organized Health Care Education/Training Program; Referring Provider Physical Medicine & Rehabilitation; Visit Provider Physical Medicine & Rehabilitation
DX: M47.816 Spondylosis without myelopathy or radiculopathy, lumbar region (principal); M51.36 Other intervertebral disc degeneration, lumbar region; M54.5 Low back pain
CPT/HCPCS: 64493; 64494; 99152; J0702; J2250; J3010

== ENCOUNTER → 2020-07-30 10:10 | Outpatient (CLI) | payer MEDICARE, OTHER, SELFPAY ==
[2020-07-30 10:51] LABS: COVID19 -Nasal RAPID Negative (Negative)
== END ==
PROVIDERS: PCP Student in an Organized Health Care Education/Training Program; Visit Provider Physical Medicine & Rehabilitation
DX: Z20.822 Contact with and (suspected) exposure to COVID-19 (principal)
CPT/HCPCS: 87635

== ENCOUNTER 2020-07-30 15:37 | Outpatient (CLI) | payer MEDICARE, OTHER, SELFPAY ==
[2020-07-30] VITALS (7 sets, daily range): BP systolic 137–173; BP diastolic 74–91; PULSE 76–86; RESP 15–20; TEMP 36.3; O2SAT 95–99
--- NOTE | 2020-07-30 15:41 | DI.RAD.S_ITS ---
PROCEDURE: PAIN L/S FACET INJ/BLK 1ST DAT COMPARISON: [facility], , PAIN L/S FACET INJ/BLK 1ST DAT, 06/18/2020, 11:15. INDICATIONS: SPONDYLOSIS FINDINGS: This study was performed for intraoperative localization. On these images, spinal needles can be seen at the L2, L3, and L4 levels on both sides, as labeled on the films. The appropriate position of the tips of the needles was confirmed by injection of a small amount of iodinated contrast. IMPRESSION: Normal intraoperative examination. Dictated by: Spenser Denson M.D. on 07/30/2020 at 16:12 Approved by: Spenser Denson M.D. on 07/30/2020 at 16:13
[2020-07-30] MEDS: MIDAZOLAM 5 MG/5 ML VIAL IV (16:15)
[2020-07-30] MEDS: fentaNYL 100 MCG/2 ML INJ 50 MCG IV (16:15)
[2020-07-30] MEDS: IOPAMIDOL 15 ML VIAL 3 ML INJ (16:23)
[2020-07-30] MEDS: LIDOCAINE 1% 20 ML 10 ML INJ (16:24)
[2020-07-30] MEDS: BUPIVACAINE 0.5% (PF) VIAL 5 ML INJ (16:24)
--- NOTE | 2020-07-30 16:33 | P.PCN_ITS ---
Date/Time/Diagnoses Date of procedure: 07/30/20 Time of procedure: 16:33 Pre-procedure diagnosis: 1. FACET ARTHROPATHY Post-procedure diagnosis: same Procedure Notes Procedure: 1. BILATERAL L2, L3, L4 DIAGNOSTIC MB BLOCKS Indications: Ernestina is referred by Dr. Silva for treatment of Bilateral Axial LBP. Physician: Tanner Gillespie Total Fluoroscopy time (seconds): 10 Total sedation minutes: 12 Complications: none Procedure in detail & Post-procedure care: DESCRIPTION OF PROCEDURE Fluoroscopically guided, contrast-controlled bilateral L2, L3, L4 medial branch blocks with 0.5cc of 0.5% Marcaine. Following review of allergy and review of potential side effects and complications, including, but not necessarily limited to, infection, allergic reaction, local tissue breakdown, nerve injury, paralysis, stroke and possible , the patient indicated that the patient understood and agreed to proceed. An informed consent document was signed by the patient, witnessed by a nurse, and placed in the patient's chart. After review of previous anaesthesic history and IV conscious sedation the patient was deemed safe to proceed with today's procedure with IV conscious sedation as ASA class II designation. Safety time-out was performed to confirm patient ID, procedure to be performed and site of procedure. IV sedation was accomplished with a combination of 3mg of Versed and 50mcg of Fentantyl was ad ministered by the RN after DO order, titrated to patient comfort during the course of the procedure while the patient remained responsive to all verbal commands In the prone position, following sterile prep and drape of the lumbar region, the right L2, L3, L4 anatomical location of the medial branch of the dorsal ramus was identified fluoroscopically. Subsequently an anesthetic skin wheal using 1% lidocaine solution was initiated at each of the anatomical spots. Subsequently then a 22-gauge 3.5-inch spinal needle was atraumatically introduced and advanced under fluoroscopic guidance at each of the corresponding sites at the right L2, L3, L4 MB. After negative aspiration, 0.2cc of Isovue 200 was injected, confirming placement without vascular or intrathecal uptake. Subsequently then 0.5cc of 0.5% Marcaine solution was injected at each of the corresponding sites at the right L2, L3, L4 medial branch locations. The identical procedure was replicated on the left. The patient tolerated the procedure well without signs or symptoms of complications. The patient tolerated the procedure well without signs or symptoms of complications prior to transfer to the recovery area continued monitoring without incident. Post-procedure, the patient was monitored initiating provocative activities to measure the amount of relief from block of the facetogenic pain. The patient reported a VAS of 7 prior to the procedure and a post-procedure VAS of 1. It has been a pleasure to assist in the diagnostic and therapeutic care of your patient. POST OP INSTRUCTIONS The patient was provided with a Pain Log to complete over the next several hours and subsequent days prior to the patient's follow up with the ordering physician. If the patient has licensed insurance sales agent relief to the solution applied, then they may be a candidate for medial branch rhizotomy. The patient is aware, was provided, once again, with a Pain Log and will follow up with the referring physician for review and clinical correlation
== END 2020-07-30 17:00 | disposition home or self-care (01) ==
PROVIDERS: PCP Student in an Organized Health Care Education/Training Program; Referring Provider Physical Medicine & Rehabilitation; Visit Provider Physical Medicine & Rehabilitation
DX: M47.816 Spondylosis without myelopathy or radiculopathy, lumbar region (principal); M54.5 Low back pain; Z20.822 Contact with and (suspected) exposure to COVID-19
CPT/HCPCS: 64493; 64494; 87635; 99152; C9803; J2250; J3010

== ENCOUNTER → 2020-10-05 09:22 | Outpatient (CLI) | payer MEDICARE, OTHER, SELFPAY ==
--- NOTE | 2020-10-05 09:24 | DI.RAD.S_ITS ---
PROCEDURE: XR FOREARM LT 2V INDICATIONS: Left forearm mass TECHNIQUE: 2 views of the forearm were acquired. COMPARISON: None. FINDINGS: Bones: No fractures or dislocations. No suspicious bony lesions. Soft tissues: No suspicious soft tissue calcifications or masses. IMPRESSION: No acute fracture. No osseous lesion. If symptoms and/or clinical suspicion for pathology persist, further assessment with repeat, or advanced imaging (e.g., CT, MRI, or bone scan) may be helpful for further assessment. Dictated by: Ron Corcoran M.D. on 10/05/2020 at 10:20 Approved by: Ron Corcoran M.D. on 10/05/2020 at 10:27
== END ==
PROVIDERS: PCP Student in an Organized Health Care Education/Training Program; Referring Provider Student in an Organized Health Care Education/Training Program; Visit Provider Student in an Organized Health Care Education/Training Program
DX: R22.32 Localized swelling, mass and lump, left upper limb (principal)
CPT/HCPCS: 73090

== ENCOUNTER → 2020-10-06 14:06 | Outpatient (CLI) | payer MEDICARE, OTHER, SELFPAY ==
--- NOTE | 2020-10-06 14:51 | DI.CT.S_ITS ---
PROCEDURE: CT UE LT WO CON INDICATIONS: forearm mass TECHNIQUE: Noncontrast 3 mm axial sections acquired of the left forearm, with coronal and sagittal reformats. COMPARISON: [facility], CR, XR FOREARM LT 2V, 10/05/2020, 9:31. FINDINGS: Image quality: Excellent. Bones: Forearm alignment is anatomic. There is no fracture or dislocation. No suspicious intraosseous lesion. No cortical erosion or periosteal reaction is seen. Osteoarthritic changes are noted throughout wrist joints. Mild elbow joint osteoarthritic changes also noted. Soft tissues: Surface skin marker is placed over dorsal aspect of proximal forearm/elbow joint. Skin thickening with adjacent subcutaneous fat stranding is noted involving posterior proximal forearm soft tissue. No discrete drainable fluid collection is noted. No definite underlying forearm muscle involvement. Chondrocalcinosis throughout wrist joints are seen. No other area of abnormal soft tissue calcifications. IMPRESSION: 1. Skin thickening with underlying subcutaneous fat stranding involving posterior aspect of proximal forearm which may represent cellulitis. No discrete drainable fluid collection is seen. No underlying muscle involvement is seen. 2. No suspicious intraosseous lesion. No fracture or dislocation. No cortical erosion or destruction is seen. 3. Elbow and wrist joint osteoarthritis. Chondrocalcinosis throughout wrist joints. Dictated by: Alfa House M.D. on 10/06/2020 at 16:03 Approved by: Alfa House M.D. on 10/06/2020 at 16:07
== END ==
PROVIDERS: PCP Student in an Organized Health Care Education/Training Program; Referring Provider Student in an Organized Health Care Education/Training Program; Visit Provider Student in an Organized Health Care Education/Training Program
DX: R22.32 Localized swelling, mass and lump, left upper limb (principal); M19.022 Primary osteoarthritis, left elbow; M19.032 Primary osteoarthritis, left wrist; M11.232 Other chondrocalcinosis, left wrist
CPT/HCPCS: 73200

== ENCOUNTER → 2020-10-30 17:13 | Outpatient (CLI) | payer MEDICARE, OTHER, SELFPAY ==
--- NOTE | 2020-10-30 17:15 | DI.MG.S_ITS ---
BILATERAL DIGITAL SCREENING MAMMOGRAM 3D/2D WITH CAD: 10/30/2020 CLINICAL: Routine screening. Comparison is made to exams dated: 09/28/2019 mammogram, 08/28/2018 mammogram, and 08/24/2017 mammogram - [facility]. The tissue of both breasts is heterogeneously dense. This may lower the sensitivity of mammography. Current study was also evaluated with a Computer Aided Detection (CAD) system. No significant masses, calcifications, or other findings are seen in either breast. There has been no significant interval change. IMPRESSION: NEGATIVE There is no mammographic evidence of malignancy. A 1 year screening mammogram is recommended. This exam was interpreted at Station ID: [id number]. NOTE: For mammograms, a report in lay terms will be sent to the patient. Approximately 15% of breast malignancies will not be visualized mammographically. In the management of a palpable breast mass, a negative mammogram must not discourage biopsy of a clinically suspicious lesion. Electronically Signed By: Daljit pascal/sera:11/02/2020 07:15:14 letter sent: Normal Exam ACR BI-RADS Category 1: Negative [id number]
== END ==
PROVIDERS: PCP Student in an Organized Health Care Education/Training Program; Referring Provider Student in an Organized Health Care Education/Training Program; Visit Provider Student in an Organized Health Care Education/Training Program
DX: Z12.31 Encounter for screening mammogram for malignant neoplasm of breast (principal)
CPT/HCPCS: 77063; 77067

== ENCOUNTER → 2020-11-16 08:21 | Outpatient (CLI) | payer MEDICARE, OTHER, SELFPAY ==
[2020-11-16 11:51] LABS: COVID19 -Nasal RAPID Negative (Negative)
== END ==
PROVIDERS: PCP Student in an Organized Health Care Education/Training Program; Visit Provider Physical Medicine & Rehabilitation
DX: Z20.822 Contact with and (suspected) exposure to COVID-19 (principal)
CPT/HCPCS: 87635; C9803

== ENCOUNTER 2020-11-17 07:32 | Outpatient (CLI) | payer MEDICARE, OTHER, SELFPAY ==
[2020-11-17] VITALS (13 sets, daily range): BP systolic 93–137; BP diastolic 53–76; PULSE 66–82; RESP 14–22; TEMP 36.1; O2SAT 90–97
--- NOTE | 2020-11-17 07:34 | DI.RAD.S_ITS ---
PROCEDURE: PAIN L/S MED/LAT N RFA BILAT INDICATIONS: SPONDYLOSIS COMPARISON: [facility], , PAIN L/S FACET INJ/BLK 1ST DAT, 07/30/2020, 16:18. FINDINGS: Fluoroscopic spot filming was performed to verify placement of spinal needles on both sides at the L2, L3, and L4 levels, as labeled on the films. IMPRESSION: Intraprocedural examination within normal limits. Dictated by: Spenser Denson M.D. on 11/17/2020 at 8:25 Approved by: Spenser Denson M.D. on 11/17/2020 at 8:26
[2020-11-17] MEDS: fentaNYL 100 MCG/2 ML INJ 50 MCG IV (08:23)
[2020-11-17] MEDS: BUPIVACAINE 0.5% (PF) VIAL 5 ML INJ (08:33)
[2020-11-17] MEDS: LIDOCAINE 1% 20 ML 10 ML INJ (08:33)
[2020-11-17] MEDS: MIDAZOLAM 5 MG/5 ML VIAL IV (08:49)
--- NOTE | 2020-11-17 09:09 | P.PCN_ITS ---
Date/Time/Diagnoses Date of procedure: 11/17/20 Time of procedure: 09:10 Pre-procedure diagnosis: 1. RECALCITRANT FACET ARTHROPATHY Post-procedure diagnosis: same Procedure Notes Procedure: 1. BILATERAL L2, L3, L4 MEDIAL BRANCH RADIOFREQUENCY NEUROTOMY Indications: Ernestina is referred by Dr. Silva for treatment of facet arthropathy. Physician: Tanner Gillespie Total Fluoroscopy time (seconds): 26 Total sedation minutes: 40 Complications: none Procedure in detail & Post-procedure care: DESCRIPTION OF PROCEDURE Bilateral L2, L3, L4 medial branch radiofrequency neurotomy The patient is well known to this clinic having undergone previous facet injections with good but temporary relief. The patient has experienced appropriate, concordant relief with previous facet and median branch blocks but the patient's pain has been recalcitrant to further conservative measures. Therefore, based upon the patient's relief and persistent symptoms, the patient is considered an appropriate candidate for facet rhizotomy. All of the patient's questions regarding the risks versus benefits of the procedure, including, but not limited to, bleeding, infection, temporary as well as lasting nerve injury, paralysis, stroke, and , as well treatment alternatives were answered to satisfaction. After obtaining informed consent, denial of pertinent drug allergies, as well as being made aware of the potential risks of bleeding, infection, spinal cord trauma, paralysis, temporary and permanent nerve damage, seizure, stroke, and possible , the patient was brought to the fluoroscopy suite and positioned prone on the fluoroscopy table. The lumbar region was prepped with Betadine and covered with a fenestrated drape in the usual sterile fashion. Appropriate monitors applied including pulse oximeter, pulse, and blood pressure for regular monitoring throughout the procedure. After review of previous anaesthesic history and IV conscious sedation the patient was deemed safe to proceed with today's procedure with IV conscious sedation as ASA class II designation. Safety time-out was performed to confirm patient ID, procedure to be performed and site of procedure. IV sedation was accomplished with a combination of 4mg of Versed and 50mcg of Fentanyl administered by the RN after DO order, titrated to patient comfort during the course of the procedure while the patient remained responsive to all verbal commands. After local infiltration using 1% lidocaine, under fluoroscopic guidance, a 10- cm RF insulated needle with a 10-mm active tip was positioned parallel to the junction of the right the superior articulating process where the L4 medial branch resides. Needle placement was confirmed with motor stimulation of .5v on the right which produced local stimulation without radicular component. The stimulation was then increased to 2v with, once again, only local multifidus stimulation without radicular component. The needle was then removed and the identical procedure was performed along the length of the right L3 medial branch with motor stimulation at .7v on the right. The identical procedure was once again performed along the length of the right L2 and medial branch with motor stimulation of .5v on the right. The medial branches were then anesthetised with 0.5% marcaine. This was then followed by two discreet lesions performed at 80 degrees Celsius for 90 seconds each. The identical procedures were repeated on the left. The patient tolerated the procedure well without signs or symptoms of complications prior to transfer to the recovery area continued monitoring witho ut incident. The patient was then transferred to the recovery area where they were observed for an appropriate period of time after the injection. The patient reported a VAS score of 7 prior to the procedure and a post-procedure VAS of 0. POST OP INSTRUCTIONS The patient was provided a Pain Log to continue to record the patient's response to the target-specific procedure prior to the patient's follow-up visit with the referring physician. Additionally, specific post-injection care instructions and a contact number to our office were provided if concerns arise regarding possible complications associated with the procedure are suspected.
== END 2020-11-17 09:28 | disposition home or self-care (01) ==
LOC: RAD 07:33 → DI 08:03
PROVIDERS: PCP Student in an Organized Health Care Education/Training Program; Referring Provider Physical Medicine & Rehabilitation; Visit Provider Physical Medicine & Rehabilitation
DX: M47.816 Spondylosis without myelopathy or radiculopathy, lumbar region (principal)
CPT/HCPCS: 64635; 64636; 99152; 99153; J2250; J3010

== ENCOUNTER → 2021-04-13 11:26 | Outpatient (CLI) | payer MEDICARE, OTHER, SELFPAY ==
[2021-04-13 14:00] LABS: COVID19 -Nasal RAPID Negative (Negative)
== END ==
PROVIDERS: PCP Student in an Organized Health Care Education/Training Program; Visit Provider Physical Medicine & Rehabilitation
DX: Z20.822 Contact with and (suspected) exposure to COVID-19 (principal)
CPT/HCPCS: 87635; C9803

== ENCOUNTER 2021-04-15 08:39 | Outpatient (CLI) | payer MEDICARE, OTHER, SELFPAY ==
[2021-04-15] VITALS (9 sets, daily range): BP systolic 115–163; BP diastolic 62–88; PULSE 18–82; RESP 12–78; TEMP 36.6; O2SAT 92–97
--- NOTE | 2021-04-15 08:40 | DI.RAD.S_ITS ---
PROCEDURE: PAIN C/T FACET INJ/BLK 1ST L INDICATIONS: SPINAL STENOSIS COMPARISON: [facility], MR, MR CERVICAL SPINE WO CON, 05/18/2020, 12:27. [facility], XA, PAIN L/S FACET INJ/BLK 1ST DAT, 07/30/2020, 16:18. [facility], XA, PAIN L/S MED/LAT N RFA BILAT, 11/17/2020, 8:31. FINDINGS: Fluoroscopic spot filming was performed to verify placement of spinal needles on the left at the C4-C5, C5-C6, and C6-C7 levels, as labeled on the films. Appropriate location of the needle tips was confirmed by injection of iodinated contrast. IMPRESSION: Intraprocedural examination within normal limits. Dictated by: Spenser Denson M.D. on 04/15/2021 at 9:04 Approved by: Spenser Denson M.D. on 04/15/2021 at 9:05
[2021-04-15] MEDS: fentaNYL 250 MCG/5 ML INJ 50 MCG IV (09:30)
[2021-04-15] MEDS: MIDAZOLAM 5 MG/5 ML VIAL IV (09:32)
[2021-04-15] MEDS: IOPAMIDOL 15 ML VIAL 3 ML INJ (09:34)
[2021-04-15] MEDS: BUPIVACAINE 0.5% (PF) VIAL 2 ML INJ (09:34)
[2021-04-15] MEDS: DEXAMETHASONE 10 MG/ML VIAL 30 MG INJ (09:34)
--- NOTE | 2021-04-15 09:48 | P.PCN_ITS ---
Date/Time/Diagnoses Date of procedure: 04/15/21 Time of procedure: 09:48 Pre-procedure diagnosis: 1. FACET ARTHROPATHY 2. AXIAL NECK PAIN Post-procedure diagnosis: same Procedure Notes Procedure: 1. FLUOROSCOPICALLY GUIDED, CONTRAST-CONTROLLED LEFT C4/5, C5/6 AND C6/7 FACET JOINT INJECTIONS WITH CONSCIOUS SEDATION. Indications: Ernestina is referred by Dr. Silva for treatment of Axial Neck Pain Physician: Tanner Gillespie Total Fluoroscopy time (seconds): 8 Total sedation minutes: 12 Complications: none Procedure in detail & Post-procedure care: DESCRIPTION OF PROCEDURE Fluoroscopically guided, contrast-controlled left C4/5, C5/6 and C6/7 facet joint injections with conscious sedation. Following review of allergy and review of potential side effects and complications, including, but not necessarily limited to, infection, allergic reaction, local tissue breakdown, stroke, temporary or permanent nerve injury and paralysis, the patient indicated that the patient understood and agreed to proceed. An informed consent document was signed by the patient, witnessed by a nurse, and placed in the patient's chart. Additionally, other treatment options including medications, modalities, and physical therapy were reviewed with the patient. After review of previous anaesthesic history and IV conscious sedation the patient was deemed safe to proceed with today?s procedure with IV conscious sedation as ASA class II designation. Safety time-out was performed to confirm patient ID, procedure to be performed and site of procedure. IV sedation was accomplished with a combination of 2mg of Versed and 50mcg of Fentanyl was administered by the RN after DO order, titrated to patient comfort during the course of the procedure while the patient remained responsive to all verbal commands In the prone position, following sterile prep and drape of the cervical spine region, the posterior aspect of the left C4/5, C5/6 and C6/7 facet joints were identified fluoroscopically. The skin was anesthetized via a 25-gauge 1.5-inch needle with 1% lidocaine solution into the corresponding facet joints. At this point, a 25-gauge 2.5-inch spinal needle was atraumatically introduced and advanced under fluoroscopic guidance into the corresponding facet joints. Following negative aspiration, injections of approximately 0.2cc of Isovue 200 confirmed interarticular placement without vascular uptake. At this point, a total of 1cc including 0.5cc or 5mg of dexamethasone combined with 0.5cc of 1% lidocaine solution was injected without complication into each of the corresponding facet joints. The procedure tolerated the procedure well without signs or symptoms of complications prior to transfer to the recovery area continued monitoring without incident. The patient was then transferred to the recovery area where they were observed for an appropriate period of time after the injection. The patient reported a VAS score of 7 prior to the procedure and a post- procedure VAS of 0. POST OP INSTRUCTIONS They were provided a Pain Log to continue to record their response to the target-specific procedure prior to their follow-up visit with their referring physician. Additionally, specific post-injection care instructions and a contact number to our office were provided if concerns arise regarding possible complications associated with the procedure are suspected.
== END 2021-04-15 10:07 | disposition home or self-care (01) ==
PROVIDERS: PCP Student in an Organized Health Care Education/Training Program; Referring Provider Physical Medicine & Rehabilitation; Visit Provider Physical Medicine & Rehabilitation
DX: M47.812 Spondylosis without myelopathy or radiculopathy, cervical region (principal)
CPT/HCPCS: 64490; 64491; 64492; 99152; J1100; J2250; J3010

== ENCOUNTER → 2021-06-02 13:03 | Outpatient (CLI) | payer MEDICARE, OTHER, SELFPAY ==
--- NOTE | 2021-06-02 13:06 | DI.RAD.S_ITS ---
PROCEDURE: XR CERVICAL SPINE 4V OR 5V INDICATIONS: NECK PAIN TECHNIQUE: 5 views of the cervical spine acquired. COMPARISON: [facility], CR, XR CERVICAL SPINE 4V OR 5V, 04/16/2020, 15:33. FINDINGS: Bones: No fractures or dislocations to the C7 level. Grade 1 anterolisthesis at C4-5, measuring up to 2.1 mm. Uncovertebral/facet arthrosis causing neural foraminal narrowing at C3-5. Soft tissues: No prevertebral soft tissue swelling. IMPRESSION: Cervical spine degeneration as detailed above. Dictated by: Felix Flores M.D. on 06/02/2021 at 14:13 Approved by: Felix Flores M.D. on 06/02/2021 at 14:14
== END ==
PROVIDERS: PCP Student in an Organized Health Care Education/Training Program; Referring Provider Physical Medicine & Rehabilitation; Visit Provider Physical Medicine & Rehabilitation
DX: M47.22 Other spondylosis with radiculopathy, cervical region (principal); M48.02 Spinal stenosis, cervical region
CPT/HCPCS: 72050

== ENCOUNTER → 2021-07-09 11:36 | Outpatient (CLI) | payer MEDICARE, OTHER, SELFPAY ==
--- NOTE | 2021-07-09 12:26 | DI.CT.S_ITS ---
PROCEDURE: CT UE LT WO CON INDICATIONS: Primary osteoarthritis, left shoulder TECHNIQUE: Noncontrast 1-1.5 mm thick sections acquired from the acromioclavicular joint to the inferior scapula, with coronal and sagittal reformatting. COMPARISON: [facility], CT, CT UE LT WO CON, 10/06/2020, 14:41. FINDINGS: Image quality: Excellent. Bones: Patient is status post reverse left shoulder arthroplasty. Shoulder alignment is anatomic. No gross hardware loosening or failure is seen. No suspicious intraosseous lesion. Mild to moderate acromioclavicular joint osteoarthritic changes are noted. Soft tissues: There is moderate to large amount of fluid within subacromial subdeltoid bursa concerning for bursitis. No significant joint effusion. No intra-articular loose bodies. No gross full-thickness rotator cuff tendon rupture. Mild supraspinatus muscle atrophy is noted on sagittal images. No abnormal soft tissue calcifications. IMPRESSION: 1. Prior left shoulder reverse arthroplasty. No gross acute fracture or dislocation. No evidence of hardware complication. 2. [id number] acromioclavicular joint osteoarthritis. No suspicious bony lesion. 3. Moderate to large amount of fluid within subacromial subdeltoid bursa which may indicate bursitis. No significant joint effusion. No abnormal soft tissue calcifications. 4. No full-thickness rotator cuff tendon rupture. Mild supraspinatus muscle atrophy. Dictated by: Alfa House M.D. on 07/09/2021 at 12:51 Approved by: Alfa House M.D. on 07/09/2021 at 13:11
== END ==
PROVIDERS: PCP Student in an Organized Health Care Education/Training Program; Referring Provider Orthopaedic Surgery; Visit Provider Orthopaedic Surgery
DX: M19.012 Primary osteoarthritis, left shoulder (principal)
CPT/HCPCS: 73200

== ENCOUNTER 2021-08-24 08:16 | Outpatient (CLI) | payer MEDICARE, OTHER, SELFPAY ==
[2021-08-24] VITALS (8 sets, daily range): BP systolic 106–159; BP diastolic 58–96; PULSE 71–83; RESP 14–25; TEMP 36.4; O2SAT 95–98
--- NOTE | 2021-08-24 | DI.RAD.S_ITS ---
PROCEDURE: PAIN C/T FACET INJ/BLK 1ST L INDICATIONS: STENOSIS COMPARISON: [facility], , PAIN C/T FACET INJ/BLK 1ST L, 04/15/2021, 10:35. FINDINGS: Fluoroscopic spot filming was performed to verify placement of spinal needles at the C4-5, C5-6, and C6-7 level(s), as labeled on the films. Appropriate location(s) of the needle tip(s) was confirmed by injection of iodinated contrast. IMPRESSION: Fluoroscopically guided cervical facet injection. Dictated by: Sonia Julio M.D. on 08/24/2021 at 11:55 Approved by: Sonia Julio M.D. on 08/24/2021 at 11:55
[2021-08-24 09:08] LABS: COVID19 -Nasal RAPID Negative (Negative)
[2021-08-24] MEDS: MIDAZOLAM 2 MG/2 ML VIAL IV (09:44)
[2021-08-24] MEDS: IOPAMIDOL 15 ML VIAL 3 ML INJ (09:51)
[2021-08-24] MEDS: BUPIVACAINE 0.5% (PF) VIAL 10 ML INJ (09:51)
[2021-08-24] MEDS: DEXAMETHASONE 10 MG/ML VIAL 30 MG INJ (09:52)
--- NOTE | 2021-08-24 09:59 | P.PCN_ITS ---
Date/Time/Diagnoses Date of procedure: 08/24/21 Time of procedure: 09:59 Pre-procedure diagnosis: 1. FACET ARTHROPATHY 2. AXIAL NECK PAIN Post-procedure diagnosis: same Procedure Notes Procedure: 1. FLUOROSCOPICALLY GUIDED, CONTRAST-CONTROLLED LEFT C4/5, C5/6 AND C6/7 FACET JOINT INJECTIONS WITH CONSCIOUS SEDATION. Indications: Ernestina is referred by Dr. Silva for treatment of Axial Neck Pain Physician: Tanner Gillespie Total Fluoroscopy time (seconds): 11 Total sedation minutes: 12 Complications: none Procedure in detail & Post-procedure care: DESCRIPTION OF PROCEDURE Fluoroscopically guided, contrast-controlled left C4/5, C5/6 and C6/7 facet joint injections with conscious sedation. Following review of allergy and review of potential side effects and complications, including, but not necessarily limited to, infection, allergic reaction, local tissue breakdown, stroke, temporary or permanent nerve injury and paralysis, the patient indicated that the patient understood and agreed to proceed. An informed consent document was signed by the patient, witnessed by a nurse, and placed in the patient's chart. Additionally, other treatment options including medications, modalities, and physical therapy were reviewed with the patient. After review of previous anaesthesic history and IV conscious sedation the patient was deemed safe to proceed with today?s procedure with IV conscious aldo tion as ASA class II designation. Safety time-out was performed to confirm patient ID, procedure to be performed and site of procedure. IV sedation was accomplished with a combination of 2mg of Versed was administered by the RN after DO order, titrated to patient comfort during the course of the procedure while the patient remained responsive to all verbal commands In the prone position, following sterile prep and drape of the cervical spine region, the posterior aspect of the left C4/5, C5/6 and C6/7 facet joints were identified fluoroscopically. The skin was anesthetized via a 25-gauge 1.5-inch needle with 1% lidocaine solution into the corresponding facet joints. At this point, a 25-gauge 2.5-inch spinal needle was atraumatically introduced and advanced under fluoroscopic guidance into the corresponding facet joints. Following negative aspiration, injections of approximately 0.2cc of Isovue 200 confirmed interarticular placement without vascular uptake. At this point, a total of 1cc including 0.5cc or 5mg of dexamethasone combined with 0.5cc of 1% lidocaine solution was injected without complication into each of the corresponding facet joints. The procedure tolerated the procedure well without signs or symptoms of complications prior to transfer to the recovery area continued monitoring without incident. The patient was then transferred to the recovery area where they were observed for an appropriate period of time after the injection. The patient reported a VAS score of 8 prior to the procedure and a post- procedure VAS of 2. POST OP INSTRUCTIONS They were provided a Pain Log to continue to record their response to the target-specific procedure prior to their follow-up visit with their referring physician. Additionally, specific post-injection care instructions and a contact number to our office were provided if concerns arise regarding possible complications associated with the procedure are suspected.
== END 2021-08-24 10:18 | disposition home or self-care (01) ==
LOC: RAD 08:16
PROVIDERS: PCP Student in an Organized Health Care Education/Training Program; Referring Provider Physical Medicine & Rehabilitation; Visit Provider Physical Medicine & Rehabilitation
DX: M47.812 Spondylosis without myelopathy or radiculopathy, cervical region (principal); Z20.822 Contact with and (suspected) exposure to COVID-19
CPT/HCPCS: 64490; 64491; 64492; 87635; 99152; J1100; J2250

== ENCOUNTER → 2021-12-09 08:42 | Outpatient (CLI) | payer MEDICARE, OTHER, SELFPAY ==
--- NOTE | 2021-12-09 | DI.NM.S_ITS ---
PROCEDURE: NM BONE 3 PHASE RADIOPHARMACEUTICAL: 20.1 mCi Tc-99m MDP IV. INDICATIONS: HISTORY OF TOTAL LEFT KNEE REPLACEMENT TECHNIQUE: Multiple bone scintigrams were obtained after intravenous injection of Tc-99m MDP, including flow, blood pool, and delayed images centered to the region of interest. COMPARISON: [facility], CR, XR KNEE 3 VIEWS LEFT, 09/07/2021, 16:14. FINDINGS: On the blood flow images, no abnormal or asymmetric blood flow activity is identified. On the blood pool images, no abnormal or asymmetric blood pool activity is seen. Left knee arthroplasty hardware. On the delayed images, there is focal increased uptake seen involving the patella, yet without significant increased uptake elsewhere. IMPRESSION: These imaging findings are most compatible with loosening of the patellar component of the left knee arthroplasty hardware. Dictated by: Spenser Denson M.D. on 12/09/2021 at 13:25 Approved by: Spenser Denson M.D. on 12/09/2021 at 13:26
== END ==
PROVIDERS: PCP Family Medicine; Referring Provider Student in an Organized Health Care Education/Training Program; Visit Provider Student in an Organized Health Care Education/Training Program
DX: Z09 Encounter for follow-up examination after completed treatment for conditions other than malignant neoplasm (principal); Z01.812 Encounter for preprocedural laboratory examination; Z96.652 Presence of left artificial knee joint; Z01.818 Encounter for other preprocedural examination
CPT/HCPCS: 36415; 78315; 80048; 85025; 85651; 93005; 93010; A9503

== ENCOUNTER → 2021-12-09 13:21 | Outpatient (CLI) | payer MEDICARE, OTHER, SELFPAY ==
[2021-12-09 13:53] LABS: Add Manual Diff / Slide Review NO; Basophils Absolute Auto 100 /uL (0-100); Basophils Percent Auto 2.1 % (0-2); Eosinophils Absolute Auto 200 /uL (0-450); Eosinophils Percent Auto 4.7 % (2-4); Hematocrit 32.2 % (36-46); Hemoglobin 10.5 g/dL (12.0-16.0); Lymphocytes Absolute Auto 1300 /uL (1100-4500); Lymphocytes Percent Auto 31.8 % (25-40); Mean Corpuscular HGB Conc 32.7 % (30-36); Mean Corpuscular Hemoglobin 30.3 PG (26-34); Mean Corpuscular Volume 92.6 fL (80-100); Monocytes Absolute Auto 800 /uL (0-900); Neutrophils Absolute Auto 1700 /uL (1500-7000); Neutrophils Percent Auto 41.4 % (50-75); Platelet Count 193 X10^3/uL (150-400); Red Blood Cell Count 3.48 X10^6/uL (4.0-5.2); Red Cell Distribution Width 15.3 % (11.6-14.8); White Blood Cell Count 4.2 X10^3/uL (4.5-11.0)
[2021-12-09 14:07] LABS: BUN Creatinine Ratio 29.6 (6-22); Blood Urea Nitrogen 16 mg/dL (7-17); Calcium 8.7 mg/dL (8.4-10.2); Carbon Dioxide 26 mmol/L (22-32); Chloride 102 mmol/L (98-107); Estimated Glomerular Filt Rate > 60 mL/min (>60); Glucose 86 mg/dL (80-110); HEMOLYSIS < 15 (0-50); Potassium 3.3 mmol/L (3.4-5.1); Sodium 134 mmol/L (137-145)
[2021-12-09 14:16] LABS: Erythrocyte Sedimentation Rate 5 MM/HR (0-20)
== END ==
PROVIDERS: PCP Family Medicine; Referring Provider Orthopaedic Surgery; Visit Provider Orthopaedic Surgery
DX: Z01.818 Encounter for other preprocedural examination (principal); Z01.812 Encounter for preprocedural laboratory examination
CPT/HCPCS: 36415; 80048; 85025; 85651; 93005

== ENCOUNTER → 2021-12-15 12:28 | Outpatient (CLI) | payer MEDICARE, OTHER, SELFPAY ==
[2021-12-15 13:03] LABS: COVID19 -Nasal RAPID Negative (Negative)
== END ==
PROVIDERS: PCP Family Medicine; Referring Provider Orthopaedic Surgery; Visit Provider Orthopaedic Surgery
DX: Z20.822 Contact with and (suspected) exposure to COVID-19 (principal)
CPT/HCPCS: 87635; C9803

== ENCOUNTER 2021-12-17 07:02 | Inpatient (IN) | payer MEDICARE, OTHER, SELFPAY ==
[2021-12-08 10:38] VITALS: BMI 28.9
[2021-12-17] VITALS (21 sets, daily range): BP systolic 89–120; BP diastolic 62–77; PULSE 75–96; RESP 12–20; TEMP 35.7–36.4; O2SAT 87–98; BMI 28.9
--- NOTE | 2021-12-17 06:57 | DI.RAD.S_ITS ---
PROCEDURE: XR SHOULDER LT MIN 2V INDICATIONS: prosthesis placement TECHNIQUE: 2 views of the shoulder were acquired. COMPARISON: [facility], JENNIFER, XR SHOULDER MIN 2VW RT, 12/23/2015, 15:26. FINDINGS: Bones: Postoperative changes of reverse left shoulder arthroplasty. No hardware complication. Soft tissues: No suspicious soft tissue calcifications. IMPRESSION: Postoperative changes of left reverse shoulder replacement. Dictated by: Chavez Azul M.D. on 12/17/2021 at 14:00 Approved by: Chavez Azul M.D. on 12/17/2021 at 14:01
[2021-12-17] MEDS: PREGABALIN 75 MG CAPSULE PO (08:09)
[2021-12-17] MEDS: ACETAMINOPHEN 325 MG TABLET 975 MG PO (08:09)
[2021-12-17] MEDS: LACTATED RINGERS 1,000 ML 42 ML IV ×2 (08:10→10:31)
[2021-12-17] MEDS: CELECOXIB 200 MG CAPSULE PO (08:10)
--- NOTE | 2021-12-17 08:16 | PM.PREOP ---
Pre-operative Note Interval Note History & Physical reviewed/Exam performed by Physician: Yes Changes to H&P: No
--- NOTE | 2021-12-17 09:09 | SUR.PREOP ---
Block start time [0855] . Monitoring initiated and maintained throughout procedure. Oxygen and medications given per anesthesiologist instructions. Patient remained stable throughout procedure, no adverse reactions noted. Block end time [0905].
--- NOTE | 2021-12-17 09:54 | SUR.OPER ---
Beach chair with Skytron bed shoulder positioner. Lower body on padded OR bed. Head in foam padded head cradle, secured with straps. Non-operative arm secured <90 degrees abduction. Pillow under knees. Safety belt at thigh. Cloth tape over blanket over lower legs.
[2021-12-17] MEDS: TRANEXAMIC ACID 1,000 MG VIAL 1000 MG INJ ×2 (10:00→11:19)
[2021-12-17] MEDS: CLINDAMYCIN 900 MG/50 ML PIGGYBACK 50 MG IV (10:25)
[2021-12-17] MEDS: VANCOMYCIN 1,000 MG VIAL 1000 MG INTRA-ARTI (11:15)
--- NOTE | 2021-12-17 11:20 | P.OP_ITS ---
Operative Date/Time/Diagnoses Date of procedure: 12/17/21 Time of procedure: 11:21 Pre-op diagnosis: instability of left shoulder reverse total shoulder arthroplasty Post-op diagnosis: same Procedure & Clinicians Procedure: Revision arthroplasty left total shoulder arthroplasty Same procedure as scheduled: Yes Indications: Ernestina is a 66-year-old female who had a primary reverse total shoulder performed 3 years ago. Over the last 8 months she has been experiencing recurrent dislocations of the shoulder. We discussed that in order to stabilize the shoulder we would need to perform a revision arthroplasty. Risks and benefits of surgery were explained to her including the risk of infection, internal bleeding, damage to nerves including the axillary nerve and failure of the surgery to provide stability thus requiring future surgery. She expressed understanding with these risks and wished to go forward with surgery. Surgeon: Eliecer Childs Sand Mixer Machine: Alyssa Beck Anesthesia Type: General and Peripheral nerve block Operative Notes Findings: See operative note Closure Type: primary Specimen(s): other Prosthetic devices, grafts, tissues, transplants, or devices: Multiple cultures both fluid, swab and tissue as well as biofilm were sent. Estimated Blood Loss (mL): 50 Blood products transfused: none Procedure in detail: Patient was seen in the preoperative holding area. We can discuss the risks and benefits of surgery and she agreed to go forth. Her left upper extremity was marked with my initials. She then underwent a left upper extremity peripheral nerve block performed by Anesthesia. She was then brought back to the operating room and placed supine onto the operating table. She underwent smooth induction of anesthesia with endotracheal tube. She is placed into a lazy beach chair position and the left upper extremity was prepped and draped in the standard sterile fashion. A time-out was performed after appropriate drying time was observed, and my initials were again confirmed on the left upper extremity. I began with a standard deltopectoral approach through the previous incision. The cephalic nerve was never encountered the there was significant scar tissue throughout the case. Once the capsule was encountered, cultures both fluid, tissue and swabs were obtained and sent for aerobic, anaerobic as well as specifically for c. acnes. Antibiotics were then given. The subdeltoid adhesions were released as well as the area underneath the conjoined tendon. The biceps remained tenodesis in the biceps groove. The anterior capsule and remnant of the subscapularis tendon was insufficient. The shoulder was then dislocated. The joint fluid appeared non cloudy and nonpurulent. There was no intervening soft tissue inside the joint. The original polyethylene cup was then removed, and the stem was inspected. An insert was placed onto the stem and it was noted to be completely stable. The [employer] hcm consultant was then removed and exposure of the glenoid was performed. The 32 mm lateralized glenosphere was removed and the base plate was inspected. There are no signs of loosening or infection. Only small biofilm was encountered which was sent for cultures. The shoulder was then thoroughly irrigated with 3 L of sterile saline as well as 1 L of saline with dilute Betadine. We then placed a 36 mm, high offset (6 mm) Kathryn ReUnion glenosphere. This seated well, we then turned our attention to the humerus. We trialed combinations of humeral inserts and polyethylene cups until stability was obtained. This was achieved with a 36 x 6 mm humeral insert and a 36 x 10 mm polyethylene humeral cup. Range of motion was assessed intraoperatively and she was determined to be stable without gapping or significant impingement 1 g of vancomycin powder was placed into the wound and she was then closed with 0 Ethibond, 2-0 PDS, and joey. Wound was dressed with Xeroform, and a Aquacel dressing. She was awoken from anesthesia and transported to the [facility] unit without any issues. Complications: none Post-operative Condition: stable Disposition: PACU Plan for aftercare: Postoperatively, she will remain in the sling for 2 weeks, after which she may begin gentle range of motion exercises starting with pendulums. She may transition to all range of motion as tolerated at 4 weeks.
--- NOTE | 2021-12-17 12:57 | PC.ADMIT ---
[email or web address] Admission Note: The patient,Ernestina Robles,66 y/o, was given written information regarding hospital policies, unit procedures and contact persons. Patient's smoking status: Never smoker. Vital Signs - 8 hr 12/17/21 08:15 12/17/21 11:42 12/17/21 11:47 Temperature 97.5 F L 97.1 F L Pulse Rate 82 86 84 Respiratory Rate 16 16 16 Blood Pressure 120/77 92/67 95/67 Pulse Oximetry 98 96 97 Oxygen Delivery Method Room Air Room Air Nasal Cannula Oxygen Flow Rate 4 12/17/21 11:52 12/17/21 11:57 12/17/21 12:02 Temperature 97.1 F L Pulse Rate 89 85 85 Respiratory Rate 16 12 13 Blood Pressure 98/65 89/62 L 102/69 Pulse Oximetry 92 97 95 Oxygen Delivery Method Room Air Nasal Cannula Nasal Cannula Oxygen Flow Rate 3 3 12/17/21 12:07 12/17/21 12:12 12/17/21 12:17 Temperature 96.6 F L Pulse Rate 84 85 80 Respiratory Rate 15 18 13 Blood Pressure 92/66 93/65 94/66 Pulse Oximetry 96 91 96 Oxygen Delivery Method Nasal Cannula Room Air Oxygen Flow Rate 3 12/17/21 12:22 12/17/21 12:27 12/17/21 12:32 Temperature 97.1 F L Pulse Rate 84 80 80 Respiratory Rate 13 20 14 Blood Pressure 99/65 99/70 100/70 Pulse Oximetry 94 87 L 94 Oxygen Delivery Method Room Air Room Air Nasal Cannula Oxygen Flow Rate 2 Pt arrived to at 1250 via AC bed from PACU, Pt VS WNL on 2 liters NC Spo2 93%. Pt denies pain or nausea at this time.
[2021-12-17] MEDS: OXYCODONE IR 5 MG TABLET PO ×2 (13:22→20:34)
[2021-12-17] MEDS: IBUPROFEN 600 MG TABLET PO (13:23)
--- NOTE | 2021-12-17 16:05 | OT.IP.EVAL ---
Current Diagnoses Dislocation of other internal joint prosthesis, initial encounter (12/17/21) Surgery Performed Operation Date: 12/17/21 08:45 Actual Procedures p Revision of Reverse Total Shoulder Replacement(Left) - Eliecer Childs MD Past Medical History (Last Updated 12/08/21 @ 10:49 by Danisha Knowles RN) Arthritis Asthma Back injury (05/03/13) Cervical radiculopathy Chicken pox (~1959) Dislocation of left shoulder joint Diverticulitis Diverticulosis Dry eye (2006) Easy bruisability Facet arthropathy, cervical Facet arthropathy, lumbar Fibromyalgia (2013) GERD (gastroesophageal reflux disease) Hayfever 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 Measles (~1960) Mumps (~195) Occipital neuralgia of left side Osteoarthritis (2008) Osteopenia Psoriasis Rheumatoid arthritis (05/2008) Surgical History (Last Updated 12/15/21 @ 13:13 by Danisha Knowles RN) Anesthesia History of back surgery (12/06/13) History of bladder surgery (12/2013) History of knee replacement (12/14/10) 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) History of surgery (11/20/19) History of surgery on arm (02/21/13) History of tonsillectomy (1961) Hx of foot surgery (2019) Hx of foot surgery (2020) Hx of hemorrhoidectomy (08/28/19) Hx of shoulder surgery (04/22/15) S/P epidural steroid injection (12/03/13) Status post hysterectomy (04/2000) Occupational Therapy Inpatient Evaluation/Re-Eval M1 PT/OT-IP Prior Functional Status Start: 12/17/21 16:07 Freq: NEEDED Status: Active Protocol: Document 12/17/21 16:07 CGR (Rec: 12/17/21 16:16 CGR [id number]) Medical Review Prior Functional Status Medical History Reviewed Yes Communication Pt is an effective verbal communicator Mobility and Gait Pt was IND at baseline without AD Activities of Daily Living and IADL's Pt was IND at baseline without AD Social History Household Members spouse Living Arrangements House Comment 2 level home with garage on the first floor. Enter the home on the second floor. Number of Floors (Floors) Two Floors Number of Stairs To Enter/Railing? 13 steps to enter with railing on L assending. Home Environment Standard Height Toilet,Tub/ Shower Home Equipment Straight Cane Employment Status Retired Additional Social History Comment Pt has an adjustable bed. M2 OT-IP Current Condition Start: 12/17/21 16:07 Freq: Status: Active Protocol: Document 12/17/21 16:07 CGR (Rec: 12/17/21 16:16 CGR [id number]) Occupational Therapy Current Condition Current Condition Evaluation Date 12/17/21 Treatment Diagnosis L TSA revision Diagnosis Onset Date 12/17/21 Post Operative Precautions Shoulder Precautions Sling Other Precautions Pendulums 2 weeks post op M3 OT- IP Subjective and Pain Start: 12/17/21 16:07 Freq: Status: Active Protocol: Document 12/17/21 16:07 CGR (Rec: 12/17/21 16:16 CGR [id number]) OT- Subjective Occupational Therapy Visit Type Type Initial Evaluation Visit Start Time 15:26 Visit Stop Time 16:05 Total Visit Minutes 38 Notes Pt with family throughout session OT Pain Assessment Pain When Pain Assessed At Rest Pain Present Pain Present Denied Pain M4 OT- IP ADL's Start: 12/17/21 16:07 Freq: Status: Active Protocol: Document 12/17/21 16:07 CGR (Rec: 12/17/21 16:16 CGR [id number]) OT [id number] Comments OT Self-Feeding Comments not meal time OT ADL-Grooming Comments OT Grooming Comments pt declined OT ADL-Oral Care Comments Oral Care Comments Pt declined OT ADL-Dressing General Eval Lower Body Dressing Ability Minimal Assistance Areas Needing Assistance Socks Comments OT Dressing Comments Pt able to get sock onto the L foot but needed assist with R OT ADL-Toileting Comments OT Toileting Comments Pt declined need OT ADL-Bathing Comments OT Bathing Comments not performed M5 OT- IP IADL's Start: 12/17/21 16:07 Freq: Status: Active Protocol: Document 12/17/21 16:07 CGR (Rec: 12/17/21 16:16 CGR [id number]) OT-Instrumental Activities of Daily Living Deficits IADL Deficits Identified No Deficits Home Safety Awareness Awareness of Need for Assistance at Home Good Awareness Ability to Problem Solve Emergency Able to Problem Solve Situations Medication Management Medication Management No Deficits Identified Money Management Money Management No Deficits Identified Meal Preparation Meal Preparation No Deficits Identified Parachute Inspector Parachute Inspector No Deficits Identified Driving Driving Comments 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 OT- IP Functional Cognition Start: 12/17/21 16:07 Freq: Status: Active Protocol: Document 12/17/21 16:07 CGR (Rec: 12/17/21 16:16 CGR [id number]) Cognitive Factors Limiting Selfcare Function Cognitive Ability Level of Alertness Alert Patient Orientation Name,Age,Birthday,Month,Date, Year,Day of Week,Place, Situation Attention Span Ability Capable of Focused Attention, Capable of Sustained Attention Ability to Follow Commands Able to Follow Multi-Step Commands OT- Vision and Hearing OT- Hearing Assessment OT- Hearing Assessment WFL OT- Vision Assessment Visual Acuity Glasses All The Time Visual Attentiveness WFL Occular Pursuits WFL Visual Convergence WFL M7 OT- IP Mobility and Balance Start: 12/17/21 16:07 Freq: Status: Active Protocol: Document 12/17/21 16:07 CGR (Rec: 12/17/21 16:16 CGR [id number]) OT- Bed Mobility Assessment Supine to Sit Supine to Sit Assist Independent,Head of Bed Elevated Scooting Scooting to Edge of Bed Independent,Head of Bed Elevated OT-Transfer Assessment Sit to and From Stand Sit to and from Stand Contact Guard Assistance Transfers Transfer Ability Contact Guard Assistance Technique Transfer Destination Bed,Chair Transfer Technique Stand Step Pivot Devices Transfer Assistive Devices Gait Belt Comments Mobility Comments Limited to transfer only d/t dizziness with standing OT- Balance Assessment Sitting Balance and Reactions Static Sitting Balance Ability Good Dynamic Sitting Balance Ability Good M8 OT- IP Objective Assessments Start: 12/17/21 16:07 Freq: Status: Active Protocol: Document 12/17/21 16:07 CGR (Rec: 12/17/21 16:16 R [id number]) OT Gross Range of Motion Upper Extremity Range of Motion Assessment Left Impaired ROM Impairments Limited d/t new sx OT Strength Upper Extremity Strength Assessment Left Impaired Comments Strength Comments L mostly flaccid at this time directly after sx. R arm 4/5 OT- Coordination Assessment Upper Extremity Finger to Nose Test Left UE Impaired Finger Tapping Test Left UE Impaired OT-Muscle Tone Assessment Muscle Tone WNL No Comments Muscle Tone Comments Flacid LUE d/t nerve block OT Sensation Assessment Edema Edema Absent M9 OT- IP Assessment and Plan Start: 12/17/21 16:07 Freq: Status: Active Protocol: Document 12/17/21 16:07 CGR (Rec: 12/17/21 16:16 CGR [id number]) OT Summary Assessment and Plan Potential Rehabilitation Potential Excellent Analytic Complexity at Evaluation Moderate Summary OT Impairments Range of Motion,Strength, Balance,Functional Mobility, Dressing,Toileting,Bathing, Toilet Transfers,Shower Transfers,Activity Tolerance Progress Towards Goals Progressing Toward Goals Assessment Summary Pt presents as a mod complexity evaluation s/p admit for revision of the L TSA. Pt is dizzy upon standing and transferred the the chair only. Pt unable to perform the UE therex but handouts provided and pt demonstrates understanding doing the exercises on her RUE. Pt will continue to benefit from OT services. OK for d/c home once cleared by P.T. for safe mobility. Goals Grooming Goal Independent Dressing Goal Independent,Caser Up,Sock Aid Toileting Goal Independent Bathing Goal Independent Toilet Transfer Goal Independent Shower Transfer Goal Independent Days to Meet Goals 2 Frequency of Treatment Frequency Of Treatment Once a Day Treatment Plan OT Treatment Plan ADL Training,Functional Mobility,Patient/Family Education,Discharge Planning Other Treatment Recommendations and Next UE therex, shower Treatment Focus Discharge Recommendations OT Discharge Recommendations Home with Assistance Transportation Needs at Discharge Private Vehicle
--- NOTE | 2021-12-17 16:25 | PT.IIE ---
Current Diagnoses Dislocation of other internal joint prosthesis, initial encounter (12/17/21) Surgery Performed Operation Date: 12/17/21 08:45 Actual Procedures p Revision of Reverse Total Shoulder Replacement(Left) - Eliecer Childs MD Surgical History (Last Updated 12/15/21 @ 13:13 by Danisha Knowles RN) Anesthesia History of back surgery (12/06/13) History of bladder surgery (12/2013) History of knee replacement (12/14/10) 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) History of surgery (11/20/19) History of surgery on arm (02/21/13) History of tonsillectomy (1961) Hx of foot surgery (2019) Hx of foot surgery (2020) Hx of hemorrhoidectomy (08/28/19) Hx of shoulder surgery (04/22/15) S/P epidural steroid injection (12/03/13) Status post hysterectomy (04/2000) Medical History (Last Updated 12/08/21 @ 10:49 by Danisha Knowles RN) Arthritis Asthma Back injury (05/03/13) Cervical radiculopathy Chicken pox (~1959) Dislocation of left shoulder joint Diverticulitis Diverticulosis Dry eye (2006) Easy bruisability Facet arthropathy, cervical Facet arthropathy, lumbar Fibromyalgia (2013) GERD (gastroesophageal reflux disease) Hayfever 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 Measles (~1960) Mumps (~9) Occipital neuralgia of left side Osteoarthritis (2008) Osteopenia Psoriasis Rheumatoid arthritis (05/2008) Physical Therapy Inpatient Evaluation/Re-Eval M1 PT/OT-IP Prior Functional Status Start: 12/17/21 17:34 Freq: NEEDED Status: Active Protocol: Document 12/17/21 16:25 AB (Rec: 12/17/21 17:48 AB [id number]) Medical Review Prior Functional Status Medical History Reviewed Yes Communication able to make needs known Mobility and Gait pt stated that she is independent with all mobilities and ambulation without AD Activities of Daily Living and IADL's Pt was IND at baseline without AD Social History Household Members spouse Living Arrangements House Number of Floors (Floors) Two Floors Number of Stairs To Enter/Railing? lives on a 2 level house: pt stays on main level of the house Has no steps to enter but has 13 steps with L rail to get to main level of the house; can get into the house from the outside with 13 steps R rail to enter from the outside to the main level of the house Home Environment Standard Height Toilet,Tub/ Shower Home Equipment Straight Cane,Hand Held Shower Employment Status Retired Additional Social History Comment Pt has an adjustable bed. M2 PT-IP Current Condition Start: 12/17/21 17:34 Freq: NEEDED Status: Active Protocol: Document 12/17/21 16:25 AB (Rec: 12/17/21 17:48 AB [id number]) Physical Therapy Current Condition Current Condition Evaluation Date 12/17/21 Treatment Diagnosis s/p L TSA revision; difficulty in walking Onset Date 12/17/21 M3 PT-IP Subjective Start: 12/17/21 17:34 Freq: NEEDED Status: Active Protocol: Document 12/17/21 16:25 AB (Rec: 12/17/21 17:48 AB [id number]) Subjective Physical Therapy Visit Type Type Initial Evaluation Visit Start Time 16:25 Visit Stop Time 17:10 Total Visit Minutes 45 Number of SPANISH LECTURER Visits 0 Physical Therapy Visit Comments Patient Comments agreeable to do PT Therapy Pain Assessment Pain Present Pain Present Denied Pain M4 PT-IP Mobility and Gait Start: 12/17/21 17:34 Freq: NEEDED Status: Active Protocol: Document 12/17/21 16:25 AB (Rec: 12/17/21 17:48 AB [id number]) PT-Transfer Assessment Sit to and From Stand Sit to and from Stand Contact Guard Assistance,1 Person Assistance,Use of Upper Extremities Equipment Transfer Assistive Device None,Gait Belt Orthotic/Prosthetic Devices or Brace: No Transfers Transfer Destination Toilet Transfer Technique ambulated Transfer Ability Level of Assist Minimal Assistance,1 Person Assistance,Use of Upper Extremities Comments Mobility Comments reviewed shoulder precautions with pt. sling adjusted but seems too small without wrist support. informed nurse for new order for sling. O2 sat with O2 on 1L : 92-93%. pt requested to use the toilet. completed sit to stand CGA and ambulated to the toilet without AD min A ~ 10 ft. shuffling gait presented. O2 sat decreased to 82% at RA as O2 tubing cannot reach the toilet. cued for deep breathing. pt completed sit to stand from the toilet CGA and ambulated back to the chair without AD min A and cues. O2 put back on. O2 sat 95%. positioned pt on the chair. informed pt regarding current level of mobility and safety. pt agreed that she is not ready to go home. family in room agreed. Gait Assessment Gait Gait Assistance Required: Minimum Assistance Distance (Feet) 10 Able to Maintain Weight Bearing Status Yes During Gait Assistive Devices Assistive Device None,Gait Belt Orthotic/Prosthetic Devices or Brace: Yes Gait Deviations General Gait Pattern Decreased Stride Length, Decreased Feet Clearance,Step- to Gait Factors Limiting Gait Function Factors Limiting Gait Function Decreased Activity Tolerance, Decreased Sensation,Decreased Strength,Limited Range of Motion,Poor Balance,Poor Safety Awareness,Respiratory Distress PT-Balance Assessment Sitting Balance and Reactions Static Sitting Balance Ability Normal Dynamic Sitting Balance Ability Good Standing Balance and Reactions Static Standing Balance Ability Fair Dynamic Standing Balance Ability Fair Device Used without AD M5 PT-IP Objective Assessments Start: 12/17/21 17:34 Freq: NEEDED Status: Active Protocol: Document 12/17/21 16:25 AB (Rec: 12/17/21 17:48 AB [id number]) Orientation Orientation/Cognition Level of Alertness Alert Orientation Name,Place,Situation Language Function Ability No Deficits Noted Safety Awareness Decreased Safety Awareness Memory Description No Deficits Noted Gross Range of Motion Lower Extremity ROM Assessment Within Functional Limits Strength Lower Extremity Strength Assessment Within Functional Limits Sensation Assessment Sensation Sensation Description Numbness Comments Sensation Comments LUE numbness and no motor control as of eval M6 PT-IP Treatment Start: 12/17/21 17:34 Freq: NEEDED Status: Active Protocol: Document 12/17/21 16:25 AB (Rec: 12/17/21 17:48 AB [id number]) Physical Therapy Treatment Education Education Provided Precautions,Weight Bearing Status,Safety M7 PT-IP Assessment and Plan Start: 12/17/21 17:34 Freq: NEEDED Status: Active Protocol: Document 12/17/21 16:25 AB (Rec: 12/17/21 17:48 AB [id number]) PT Summary Assessment and Plan Potential Rehabilitation Potential Fair Status of Condition at Evaluation Evolving Summary Impairments Pain,ROM,Strength,Balance, Coordination,Sensation,Tone, Cognition,Bed Mobility, Transfers,Gait,Activity Tolerance Assessment Summary Pt. s/p L TSA revision and just had surgery this morning. pt still does not have LUE sensation and motor control back. Able to ambulate without AD min A and presents with unsteady shuffling gait. pt also has decrease O2 sat with mobility at RA to 82%. pt is not using O2 at home. will conduct caregiver training when appropriate as well as stair climbing training. will continue to assess progress. Goals Bed Mobility Goal Independent Transfer Goal Independent,Cane Gait Goal Independent,Cane Gait Distance 200 Other Goals improve transfers and ambulation without AD 250 ft up/down 13 steps R rail SBA Days to Meet Goals 5 Frequency of Treatment Frequency Of Treatment Twice a Day Treatment Plan Physical Therapy Treatment Plan Bed Mobility Training,Transfer Training,Gait Training, Therapeutic Exercise,Balance Retraining,Post Op Education, Discharge Planning,Hot or Cold Pack,Neuromuscular Re-ed, Coordination Retraining,Manual Therapy Precautions Shoulder Precautions Sling,PROM,Internal Rotation to Body,No External Rotation, No Abduction,Forward Flexion to 90 degrees,Pendulums Weight Bearing Status Weight Bearing Status Non-Weight Bearing Allowed Weight Bearing Amount (enter % LUE NWB or #) (%) Recommendations To Nursing Amount of Assist Needed 1 Person Assist Discharge Recommendations PT Discharge Recommendations Home with Assistance, Outpatient PT Transportation Needs at Discharge Private Vehicle
[2021-12-17] MEDS: LACTATED RINGERS 1,000 ML 100 ML IV (17:38)
[2021-12-17] MEDS: PANTOPRAZOLE DR 40 MG TABLET PO (20:33)
[2021-12-17] MEDS: LABETALOL 100 MG TABLET PO (20:33)
[2021-12-17] MEDS: LEFLUNOMIDE 20 MG TABLET PO (20:36)
--- NOTE | 2021-12-18 03:37 | PC.NURSE ---
Pt is AxOx4, calm and cooperative. VSS, pt c/o pain on L shoulder and recieved PRN Oxy 5mg PO with good effect. Pt is now on RA and sats 94%. No other changes. pt slept well. Will continue monitor.
[2021-12-18 04:27] VITALS: BP 106/58; PULSE 86; RESP 16; TEMP 36.3; O2SAT 92
[2021-12-18] MEDS: LACTATED RINGERS 1,000 ML 100 ML IV (04:27)
[2021-12-18] MEDS: ASCORBIC ACID 500 MG TABLET 1000 MG PO (08:07)
[2021-12-18] MEDS: LEFLUNOMIDE 20 MG TABLET PO (08:07)
[2021-12-18] MEDS: MULTIVITAMIN 1 TABLET 1 TAB PO (08:07)
[2021-12-18] MEDS: CHOLECALCIFEROL (VITAMIN D3) 5,000 UNIT TABLET 5000 UNIT PO (08:08)
[2021-12-18] MEDS: HYDROXYCHLOROQUINE 200 MG TABLET PO (08:08)
[2021-12-18 08:11] VITALS: BP 106/58
[2021-12-18 08:14] VITALS: BP 106/58
[2021-12-18 08:35] VITALS: BP 107/64; PULSE 87; RESP 16; TEMP 36.7; O2SAT 92
--- NOTE | 2021-12-18 08:43 | CM.DANOTE ---
DCP Assessment: Payor confirmed: Medicare & [facility] PCP confirmed: Cleveland Cardenas MD Pt is a 66 y/o F who presented to the hospital for a scheduled L total shoulder surgery. Pt brought up to the AC unit for further eval and management of surgical procedure. PT/OT consult ordered. DCP met with pt this morning to discuss discharge needs. Pt sitting up in chair eating breakfast. DCP introduced herself and role. Pt states that she lives here in [place] with her , Juvenal, in a 2 story home. Pt states that she is independent at baseline and still drives POV. Pt aware that she needs to work with PT/OT prior to her discharge. Pt hopeful she can discharge today. Pt denies any HH use. No other discharge needs at this time. White board updated and instructed to call. Pt thankful for discussion. P: Pt to work with PT/OT this morning. Once cleared, pt to discharge home via spouse POV. DCP to continue to follow. Svetlana Zamarripa RN/ANTHONY Discharge Planning/Care Management Advanced directive, confirm from FAMILY Start: 12/17/21 14:26 Freq: Q24H Status: Active Protocol: Document 12/17/21 14:26 MS (Rec: 12/17/21 14:27 MS [id number]) Advance Directive, confirm on record Time 14:26 Person contacted patient Copy received No CM Discharge Assessment Start: 12/18/21 08:08 Freq: Status: Active Protocol: Document 12/18/21 08:42 AJ (Rec: 12/18/21 08:43 AJ [id number]) Discharge Planning Assessment Assigned Knocker Out Svetlana Zamarripa RN/ANTHONY Advance Directives? No Advance Directives on File No History Provided By Patient Prior Living Arrangements House Comment 2 level home with garage on the first floor. Enter the home on the second floor. Household Members spouse Type of transporation used prior to Drives own vehicle admit Independent with ADL's Yes Is patient alert and oriented? Yes Discharge Plan Home Transportation Arrangement Spouse POV Referrals Initiated None needed Additional Comment At this time. Awaitng PT/OT recommendations. Whiteboard Updated in Patient Room with Yes name and ext. # of Knocker Out Comment Instructed to call Review Status In Process Please Provide Date Initial DC 12/18/21 Assessment Was Performed Next Review Type Continued Stay Review Pre-Anesthesia Assessment Start: 12/08/21 10:38 Freq: Status: Complete Protocol: Document 12/08/21 10:38 CAB (Rec: 12/08/21 10:49 CAB [id number]) Pre-Anesthesia Assessment Preferred Name Ernestina Patient Information Reviewed Via Chart Review Comment Labs/ECG not identified, COVID screen @ 12/15/21 Primary Care Provider Cleveland Cardenas Seen Specialist in Last 12 Months Yes Specialist Seen Orthopedist Primary Language [place] Preferred Language [place] Foxpro Developer Required No Height 154.94 cm Weight 69.4 kg Body Mass Index (BMI) 28.9 Visual Assist Glasses Dentition Type Teeth, Natural Present Other Aids No Hx Anesthesia Reactions No Hx Family Anesthesia Reaction No: Pt adopted Hx Malignant Hyperthermia No Hx Blood Transfusions No Hx Blood Transfusion Reaction No Anesthesia Review Requested No Cooker Loader No alcohol intake current alcohol intake frequency 0-2 drinks per day Smoking Status Never smoker Substance Use Type does not use Pain Present Pain Reported Musculoskeletal Symptoms Difficulty Walking,Joint Pain, Limited Range of Motion History of Falling (Recent or History of No ) Patient is completely paralyzed or No completely immobile Mental Status Oriented to own ability Comment Balance issues Is patient on oxygen? No Does patient have EDEN/SOB No Hx Sleep Apnea No CPAP/BIPAP use not prescribed Currently Taking a Beta Sea No Hx Chest Pain No Hx SOB No Hx Syncope or Dizziness No Anti-Coagulant Therapy No Has a Risk Specialist No Cardiac Testing No Hx Pacemaker/ICD No Pacemaker Rep Required? No Cardiac Clearance Received No Diet Type At Home Regular Dysphagia No Gastrointestinal Symptoms Reflux Urinary Catheter Present No Hx Urinary Self Catheterization No Diabetes No Patient No Lactating No Presence of External or Internal Medical Yes: Left TSA and LT TKA, feet Devices , Have you had any close contact with No someone diagnosed with COVID-19? Received a COVID vaccine? Yes Received all doses? No Marital Status Lives With spouse Number of Floors (Floors) Two Floors Support System Spouse Does the Patient Have Assistance After Yes Surgery Patient Discharge Plan Description Return Home Comment Pt advised overnight length of stay per surgeon Feels Safe in Current Environment Yes Been Physically Hurt or Threatened By a No Person in Current Environment Do you have thoughts of harming yourself None or others? Are you currently considering suicide? No Do you have a plan to hurt yourself or No Plan others? Do You Have Any Spiritual Beliefs That No May Affect Your HC Choices? Do You Have Any Cultural Practices That No May Affect Your HC Choices? Comment Muslim Who Can We Speak to About Patient's Care Family, friends Identifying Code for Release of Patient Declnes to issue Information Health Care Proxy/Next of Kin Juvenal () Darcy ( daughter) Health Care Proxy Phone Number Juvenal: [phone] Darcy: [phone] Emergency Contact Name Juvenal () Darcy ( daughter) Emergency Contact Phone Number Juvenal: [phone] Darcy: [phone] Advance Directives? No Power of Spray Mixer No PAC Instructions Do not shave/clip surgical site,Durable medical equipment ,Medications to take/avoid, Nasal antibiotic,No ETOH/ petroleum product on skin DOS, NPO,Sensory aids,Sturdy shoes/ comfortable clothes,Do not bring valuables and remove jewelry
--- NOTE | 2021-12-18 09:28 | PM.DS.1 ---
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 Over the last 8 months she has been experiencing recurrent dislocations of the shoulder.? We discussed that in order to stabilize the shoulder we would need to perform a revision arthroplasty.? Risks and benefits of surgery were explained to her including the risk of infection, internal bleeding, damage to nerves including the axillary nerve and failure of the surgery to provide stability thus requiring future surgery.? She expressed understanding with these risks and wished to go forward with surgery. Surgeon: Eliecer Childs Engineer Automated Equipment: Alyssa Beck Anesthesia Type: General and Peripheral nerve block Operative Notes Findings: See operative note Closure Type: primary Specimen(s): other Prosthetic devices, grafts, tissues, transplants, or devices: Multiple cultures both fluid, swab and tissue as well as biofilm were sent. Estimated Blood Loss (mL): 50 Blood products transfused: none Discharge Providers Provider Date of admission: 12/17/21 07:02 Discharge Date: 12/18/21 Primary care physician: Cleveland Cardenas MD Consults: 12/17/21 06:57 Consult to Anesthesiology Routine Comment: Consulting Provider: Anesthesiologist Reason for consultation: Regional block for post operative pain control 12/17/21 12:45 Consult to Occupational Therapy Evaluate & Treat Comment: Physician Instructions: Evaluate and treat Consult to Physical Therapy Evaluate & Treat Comment: Physician Instructions: Evaluate and Treat Consult to Respiratory Therapy Evaluate & Treat Comment: Physician Instructions: Evaluate and treat Discharge provider: Alyssa Beck PA-C Summary Hospital Course Discharge Diagnosis: 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 On POD# 1, she no longer required supplemental oxygen and was ready to go home. She was eating and voiding without difficulty and her pain was well-controlled with oral pain medication. 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 Fingers/hand warm and well-perfused, sensation to touch intact throughout LUE. Aquacel dressing CDI. 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 Measles (~1960) Mumps (~1959) Occipital neuralgia of left side Osteoarthritis (2008) Osteopenia Psoriasis Rheumatoid arthritis (05/2008) Surgical History (Updated 12/15/21 @ 13:13 by Danisha Knowles RN) Anesthesia History of back surgery (12/06/13) History of bladder surgery (12/2013) History of knee replacement (12/14/10) 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) History of surgery (11/20/19) History of surgery on arm (02/21/13) History of tonsillectomy (1961) Hx of foot surgery (2019) Hx of foot surgery (2020) Hx of hemorrhoidectomy (08/28/19) Hx of shoulder surgery (04/22/15) S/P epidural steroid injection (12/03/13) Status post hysterectomy (04/2000) Social History marital status: household members: spouse occupational status: previously employed Smoking Status: Never smoker alcohol intake: current substance use type: does not use Discharge Assessment & Plan Assessment and Plan Assessment: 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 Discharge Plan Discharge Plan Patient Disposition: Home Discharge orders & Medications Prescriptions: New hydrocodone-acetaminophen 5-325 mg tablet 1 tab PO Q6H PRN (Reason: pain) Qty: 20 0RF ibuprofen 400 mg tablet 400 mg PO Q6H Qty: 30 0RF Continued multivitamin Capsule 1 cap PO DAILY Qty: 0 ascorbic acid (vitamin C) [Vitamin C] 1,000 mg Tablet 1,000 mg PO DAILY Qty: 0 cholecalciferol (vitamin D3) [Vitamin D3] 125 mcg (5,000 unit) Tablet 125 mcg PO DAILY Qty: 0 hydroxychloroquine [Plaquenil] 200 MG tablet 200 mg PO QDAY Qty: 0 leflunomide [Arava] 20 mg tablet 20 mg PO BID Qty: 0 Prolia 60 mg/mL syringe 60 mg SUBCUT [id number] Label Comments: in July, unsure of day Rx Instructions: for bone density Kevzara 200 mg/1.14 mL pen injector 200 mg SUBCUT Q2W amlodipine 10 mg tablet 10 mg PO DAILY Qty: 90 2RF labetalol 100 mg tablet 100 mg PO BID Qty: 180 2RF lisinopril 20 mg tablet 20 mg PO DAILY Qty: 90 2RF cyclobenzaprine 5 mg tablet 5 mg PO Q4H PRN (Reason: muscle spasm) omeprazole 40 mg capsule,delayed release(/EC) 40 mg PO BEDTIME lisinopril 20 mg tablet 20 mg PO DAILY labetalol 100 mg tablet 100 mg PO BID diclofenac sodium 1 % gel 2 gram TOP QID PRN (Reason: Pain) ibuprofen 600 mg tablet 600 mg PO BID PRN (Reason: Pain) Follow up/Referrals: Cleveland Cardenas MD [Primary Care Provider] - Eliecer Childs MD [Physician] - As previously scheduled (Follow up with Dr Childs on 12/27/2021 @ 11:20 am at [facility] in [place].) Diet/Activity/Treatments Diet: Diet as Tolerated Activity: Sling at most times. May have off for gentle pendulums. Cold/Heat Therapy: Ice to shoulder as needed for pain. Skin/Wound/Dressing Care Report to your healthcare provider any signs of infection, such as:: chills, fever, night sweats, increased pain, unusual drainage and unusual redness Visit Report/Discharge Packet Instructions: DI for Prescription Opioid Use, DI for Shoulder Replacement Stand Alone Forms: Surgery Discharge Discharge Data Primary Care Provider: Cleveland Cardenas
--- NOTE | 2021-12-18 11:09 | OT.IP.TRT ---
Current Diagnoses Dislocation of other internal joint prosthesis, initial encounter (12/17/21) Surgery Performed Operation Date: 12/17/21 08:45 Actual Procedures p Revision of Reverse Total Shoulder Replacement(Left) - Eliecer Childs MD Occupational Therapy Treatment Note M2 OT-IP Current Condition Start: 12/17/21 16:07 Freq: Status: Active Protocol: Document 12/17/21 16:07 CGR (Rec: 12/17/21 16:16 CGR [id number]) Occupational Therapy Current Condition Current Condition Evaluation Date 12/17/21 Treatment Diagnosis L TSA revision Diagnosis Onset Date 12/17/21 Post Operative Precautions Shoulder Precautions Sling Other Precautions Pendulums 2 weeks post op M3 OT- IP Subjective and Pain Start: 12/17/21 16:07 Freq: Status: Active Protocol: Document 12/18/21 14:51 CGR (Rec: 12/18/21 14:56 CGR [id number]) OT- Subjective Occupational Therapy Visit Type Type Progress Note Visit Start Time 10:46 Visit Stop Time 11:09 Total Visit Minutes 23 Occupational Therapy Visit Comments Patient Comments I feel ready to go home OT Pain Assessment Pain When Pain Assessed At Rest Pain Present Pain Present Pain Reported Location left knee Intensity 4 Scale Used Numeric (0 - 10) Management Techniques Distraction,Modification of Treatment,Re-positioning M4 OT- IP ADL's Start: 12/17/21 16:07 Freq: Status: Active Protocol: Document 12/18/21 14:51 CGR (Rec: 12/18/21 14:56 CGR [id number]) OT [id number] Comments OT Self-Feeding Comments not meal time OT ADL-Grooming Comments OT Grooming Comments not performed OT ADL-Oral Care Comments Oral Care Comments not performed OT ADL-Dressing General Eval Upper Body Dressing Ability Minimal Assistance Lower Body Dressing Ability Standby Assistance Areas Needing Assistance Retrieving/Set-up of Clothing, Bra,Pull-Over Shirt,Underpants /Brief,Pants/Shorts,Socks Comments OT Dressing Comments Pt was able to perform all dressing IND except her sling and her bra. Educated on how to assist with the sling. OT ADL-Toileting Comments OT Toileting Comments not performed OT ADL-Bathing Comments OT Bathing Comments not performed M5 OT- IP IADL's Start: 12/17/21 16:07 Freq: Status: Active Protocol: Document 12/17/21 16:07 CGR (Rec: 12/17/21 16:16 CGR [id number]) OT-Instrumental Activities of Daily Living Deficits IADL Deficits Identified No Deficits Home Safety Awareness Awareness of Need for Assistance at Home Good Awareness Ability to Problem Solve Emergency Able to Problem Solve Situations Medication Management Medication Management No Deficits Identified Money Management Money Management No Deficits Identified Meal Preparation Meal Preparation No Deficits Identified Cafeteria Or Lunchroom Checker Cafeteria Or Lunchroom Checker No Deficits Identified Driving Driving Comments 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 OT- IP Functional Cognition Start: 12/17/21 16:07 Freq: Status: Active Protocol: Document 12/17/21 16:07 CGR (Rec: 12/17/21 16:16 CGR [id number]) Cognitive Factors Limiting Selfcare Function Cognitive Ability Level of Alertness Alert Patient Orientation Name,Age,Birthday,Month,Date, Year,Day of Week,Place, Situation Attention Span Ability Capable of Focused Attention, Capable of Sustained Attention Ability to Follow Commands Able to Follow Multi-Step Commands OT- Vision and Hearing OT- Hearing Assessment OT- Hearing Assessment WFL OT- Vision Assessment Visual Acuity Glasses All The Time Visual Attentiveness WFL Occular Pursuits WFL Visual Convergence WFL M7 OT- IP Mobility and Balance Start: 12/17/21 16:07 Freq: Status: Active Protocol: Document 12/18/21 14:51 CGR (Rec: 12/18/21 14:56 CGR [id number]) OT-Transfer Assessment Sit to and From Stand Sit to and from Stand Standby Assistance Transfers Transfer Ability Standby Assistance Technique Transfer Destination Chair Transfer Technique Stand Step Pivot Devices Transfer Assistive Devices None Comments Mobility Comments Pt appears more stable on her feet today. OT- Balance Assessment Sitting Balance and Reactions Static Sitting Balance Ability Normal Dynamic Sitting Balance Ability Good M8 OT- IP Objective Assessments Start: 12/17/21 16:07 Freq: Status: Active Protocol: Document 12/17/21 16:07 CGR (Rec: 12/17/21 16:16 CGR [id number]) OT Gross Range of Motion Upper Extremity Range of Motion Assessment Left Impaired ROM Impairments Limited d/t new sx OT Strength Upper Extremity Strength Assessment Left Impaired Comments Strength Comments L mostly flaccid at this time directly after sx. R arm 4/5 OT- Coordination Assessment Upper Extremity Finger to Nose Test Left UE Impaired Finger Tapping Test Left UE Impaired OT-Muscle Tone Assessment Muscle Tone WNL No Comments Muscle Tone Comments Flacid LUE d/t nerve block OT Sensation Assessment Edema Edema Absent M9 OT- IP Assessment and Plan Start: 12/17/21 16:07 Freq: Status: Active Protocol: Document 12/18/21 14:51 CGR (Rec: 12/18/21 14:56 CGR [id number]) OT Summary Assessment and Plan Potential Rehabilitation Potential Excellent Analytic Complexity at Evaluation Moderate Summary OT Impairments Range of Motion,Strength, Balance,Functional Mobility, Dressing,Toileting,Bathing, Toilet Transfers,Shower Transfers,Activity Tolerance Progress Towards Goals Progressing Toward Goals Assessment Summary Pt presents as a mod complexity evaluation s/p admit for revision of the L TSA. Pt's mobility appears to be at her baseline and pt participated in UE therex and dressing on this date. Educated pt's on how to assist with donning and doffing the sling and educated pt on UB dressing. Goals Grooming Goal Independent Dressing Goal Independent,Care Attendant,Sock Aid Toileting Goal Independent Bathing Goal Independent Toilet Transfer Goal Independent Shower Transfer Goal Independent Days to Meet Goals 2 Frequency of Treatment Frequency Of Treatment Once a Day Treatment Plan OT Treatment Plan ADL Training,Functional Mobility,Patient/Family Education,Discharge Planning Other Treatment Recommendations and Next UE therex, shower Treatment Focus Discharge Recommendations OT Discharge Recommendations Home with Assistance Transportation Needs at Discharge Private Vehicle
[2021-12-18] MEDS: IBUPROFEN 600 MG TABLET PO (12:12)
[2021-12-18] MEDS: OXYCODONE IR 5 MG TABLET PO (12:12)
--- NOTE | 2021-12-18 12:21 | PC.NURSE ---
[employer] Pt received all paperwork, signed, all questions answered. Pt denied pain or nausea,VS WNL. Pt received pain medication prior to transport. Pt had all personal belongings. Pt left the floor via wheelchair to private vehicle accompanied by her spouse. at 1225.
== END 2021-12-18 12:28 | disposition home or self-care (01) | DRG 483 ==
PROVIDERS: Admitting Provider Orthopaedic Surgery; PCP Family Medicine; Referring Provider Orthopaedic Surgery; Visit Provider Orthopaedic Surgery
PROC: 0RPJ0J6 Removal of Synthetic Substitute from Right Shoulder Joint, Humeral Surface, Open Approach (ICD-10-PCS; CPT 23472; principal; 2021-12-17 08:45)
DX: T84.028A Dislocation of other internal joint prosthesis, initial encounter (principal); M06.9 Rheumatoid arthritis, unspecified; M85.80 Other specified disorders of bone density and structure, unspecified site; I10 Essential (primary) hypertension; K21.9 Gastro-esophageal reflux disease without esophagitis; Z20.822 Contact with and (suspected) exposure to COVID-19
CPT/HCPCS: 01638; 36592; 64450; 73030; 87070; 87075; 87077; 87147; 87176; 87205; 87635; 97116; 97162; 97166; 97530; 97535; C1776; C9803; J0171; J0330; J1100; J2250; J2405; J3010

== ENCOUNTER → 2022-01-04 10:19 | Outpatient (CLI) | payer MEDICARE, OTHER, SELFPAY ==
[2021-12-17 13:05] VITALS: BMI 28.9
--- NOTE | 2022-01-04 | DI.CT.S_ITS ---
PROCEDURE: CT KNEE LEFT WITHOUT CON INDICATIONS: HISTORY OF TOTAL LEFT KNEE REPLACEMENT TECHNIQUE: Noncontrast 1-1.5 mm axial sections acquired from the mid-patella to the proximal tibia, with coronal and sagittal reformats. COMPARISON: Outside Film, CR, XR KNEE 3 VIEWS LEFT, 09/07/2021, 16:14. FINDINGS: Image quality: Excellent. Bones: There is prior left total knee arthroplasty. Left knee alignment is anatomic. No gross hardware loosening or failure. Cortical irregularity and radiolucency traversing upper portion of patella is seen suggestive of a nondisplaced patellar fracture. No other fracture or dislocation is seen. No suspicious intraosseous lesion. Soft tissues: Significant soft tissue edema and swelling along anterior and lateral aspect of patella is seen. There is moderate to large joint effusion, no gross calcified intra-articular loose bodies. Distal quadriceps tendon and patellar tendon show no full-thickness tendon rupture. Cruciate ligaments are not well seen. IMPRESSION: 1. Acute appearing transverse fracture through upper portion of patella with overlying soft tissue swelling and edema. Moderate joint effusion, no gross intra-articular loose bodies. 2. Prior left total knee arthroplasty with anatomic left knee alignment. No evidence of hardware loosening or failure. No other fracture or dislocation. 3. No gross full-thickness quadriceps tendon or patellar tendon rupture. No abnormal soft tissue calcifications. Dictated by: Alfa House M.D. on 01/04/2022 at 15:55 Approved by: Alfa House M.D. on 01/04/2022 at 15:58
== END ==
PROVIDERS: PCP Family Medicine; Referring Provider Student in an Organized Health Care Education/Training Program; Visit Provider Student in an Organized Health Care Education/Training Program
DX: S82.032A Displaced transverse fracture of left patella, initial encounter for closed fracture (principal); M79.89 Other specified soft tissue disorders; M25.462 Effusion, left knee; Z96.652 Presence of left artificial knee joint
CPT/HCPCS: 73700

== ENCOUNTER → 2022-01-12 16:01 | Outpatient (CLI) | payer MEDICARE, OTHER, SELFPAY ==
[2021-12-17 13:05] VITALS: BMI 28.9
--- NOTE | 2022-01-12 16:05 | DI.RAD.S_ITS ---
PROCEDURE: XR KNEE LT 3V INDICATIONS: HISTORY OR TOTAL KNEE REPLACEMENT TECHNIQUE: 3 views of the knee were acquired. COMPARISON: [facility], CR, XR KNEE ARTHRITIC SERIES LT, 09/18/2019, 10:14. [facility], CR, KNEE 1-2 VIEWS LEFT, 12/14/2010, 12:30. [facility], CR, KNEE 3V LEFT, 01/15/2010, 11:01. FINDINGS: Bones: No acute fractures or dislocations. No suspicious bony lesions. Postsurgical changes from knee arthroplasty. Hardware appears intact. Soft tissues: No definite joint effusion. No suspicious soft tissue calcifications. Possible soft tissue swelling present about the anterior knee. IMPRESSION: Postsurgical changes from left knee arthroplasty. No definite acute osseous findings visualized. If symptoms persist, follow-up radiographs and/or CT may be helpful for further evaluation. Dictated by: Clem Perera M.D. on 01/13/2022 at 12:45 Approved by: Clem Perera M.D. on 01/13/2022 at 12:49
== END ==
PROVIDERS: PCP Family Medicine; Referring Provider Student in an Organized Health Care Education/Training Program; Visit Provider Student in an Organized Health Care Education/Training Program
DX: Z96.652 Presence of left artificial knee joint (principal); Z09 Encounter for follow-up examination after completed treatment for conditions other than malignant neoplasm
CPT/HCPCS: 73562

== ENCOUNTER → 2022-02-15 11:03 | Outpatient (CLI) | payer MEDICARE, OTHER, SELFPAY ==
[2021-12-17 13:05] VITALS: BMI 28.9
--- NOTE | 2022-02-15 | DI.MG.S_ITS ---
BILATERAL DIGITAL SCREENING MAMMOGRAM 3D/2D WITH CAD: 02/15/2022 CLINICAL: Routine screening. Comparison is made to exams dated: 10/30/2020 mammogram, 09/28/2019 mammogram, and 08/28/2018 mammogram - [facility]. Both breasts are heterogeneously dense, which may obscure small masses (category c / 51-75% glandular tissue). Current study was also evaluated with a Computer Aided Detection (CAD) system. No significant masses, calcifications, or other findings are seen in either breast. There has been no significant interval change. IMPRESSION: NEGATIVE There is no mammographic evidence of malignancy. A 1 year screening mammogram is recommended. Based on the Tyrer Cuzick model (a risk assessment model) the patient's lifetime risk is 8.9% and her 10 year risk is 5.0%. According to the ACR, ACS, and NCCN guidelines, an annual breast MRI exam along with mammogram is recommended if the patient's lifetime risk is 20% or greater. This exam was interpreted at Station ID: [id number]. NOTE: For mammograms, a report in lay terms will be sent to the patient. Approximately 15% of breast malignancies will not be visualized mammographically. In the management of a palpable breast mass, a negative mammogram must not discourage biopsy of a clinically suspicious lesion. Electronically Signed By: Daljit pascal/sera:02/15/2022 12:35:41 letter sent: Normal Exam ACR BI-RADS Category 1: Negative [id number]
== END ==
PROVIDERS: PCP Family Medicine; Referring Provider Family Medicine; Visit Provider Family Medicine
DX: Z12.31 Encounter for screening mammogram for malignant neoplasm of breast (principal)
CPT/HCPCS: 77063; 77067

== ENCOUNTER 2022-05-05 08:24 | Outpatient (CLI) | payer MEDICARE, OTHER, SELFPAY ==
[2022-03-24 09:53] VITALS: BMI 28.9
--- NOTE | 2022-05-05 08:25 | DI.RAD.S_ITS ---
PROCEDURE: PAIN C/T FACET INJ/BLK 1ST L INDICATIONS: SPONDYLOSIS COMPARISON: [facility], , PAIN C/T FACET INJ/BLK 1ST L, 08/24/2021, 9:47. FINDINGS: Fluoroscopic spot filming was performed to verify placement of spinal needles at the left C3, C4 on C5 level(s), as labeled on the films. Appropriate location(s) of the needle tip(s) was confirmed by injection of iodinated contrast. IMPRESSION: Fluoroscopy for pain management. Dictated by: Sophy Fowler M.D. on 05/05/2022 at 11:53 Approved by: Sophy Fowler M.D. on 05/05/2022 at 11:54
[2022-05-05 08:50] VITALS: BP 110/70; PULSE 66; RESP 16; TEMP 36.5; O2SAT 99
[2022-05-05 09:12] VITALS: BP 136/84; PULSE 66; RESP 14; O2SAT 98
[2022-05-05 09:15] VITALS: BP 111/62; PULSE 65; RESP 18; O2SAT 99
[2022-05-05 09:20] VITALS: BP 116/69; PULSE 66; RESP 20; O2SAT 97
[2022-05-05] MEDS: IOPAMIDOL 15 ML VIAL 3 ML INJ (09:21)
[2022-05-05] MEDS: BUPIVACAINE 0.5% (PF) 10 ML VIAL 5 ML SUBCUT (09:23)
[2022-05-05 09:25] VITALS: BP 114/70; PULSE 69; RESP 15; O2SAT 100
[2022-05-05 09:35] VITALS: BP 138/73; PULSE 71; RESP 16; O2SAT 99
--- NOTE | 2022-05-05 10:18 | P.PCN_ITS ---
Date/Time/Diagnoses Date of procedure: 05/05/22 Time of procedure: 09:00 Procedure Notes Physician: Shiv Hair Total Fluoroscopy time (seconds): 13 Total sedation minutes: 0 Procedure in detail & Post-procedure care: Left C3, 4, 5 Cervical Medial Branch Blocks Indications: Ernestina is referred by Dr. Cardenas for treatment of cervical spondylosis with cervical pain. Preoperative diagnosis: Left cervical spondylosis Postoperative diagnosis: Same Pre-procedure History: Patient demonstrates today moderate to severe non- radicular neck pain without neurologic deficit aggravated by hyperextension yes Neck pain greater than arm pain? yes Patient today has tenderness over the suspected joint(s) yes History of post-traumatic injury? no Hypertrophic arthropathy yes Neck pain associated with suspected motion segment instability, hypermobility or pseudoarthrosis no Pre-testing pain score (VAS): 6/10 Focused Examination: Ax3 Mood and affect are normal Vital Signs: VSS ASA: 2 Consent: Following review of allergies and potential side effects/complications, including, but not necessarily limited to, infection, allergic reaction, local tissue breakdown, stroke, temporary or permanent nerve injury, paralysis, and possible , the patient indicated that they understood and agreed to proceed.? An informed consent document was signed by the patient, witnessed by a nurse and placed in the patient's chart.? Additionally, other treatment options including medications and physical therapy were reviewed with the patient. All questions were answered. Site was then marked. Anesthesia: Local Position: Prone Monitoring: NIBP, Pulse oximetry, 3 lead EKG Needle used: 22G 3.5 inch spinal needle Contrast: Isovue 300M Injectate: 0.5% Bupivacaine 0.5 mL per site Procedure: The patient was brought into the procedure room and positioned into the prone position. Skin was prepped with a Chloraprep solution, allowed to air dry, and then draped in sterile fashion.? The left C3, 4, 5 facet joints were visually identified with fluoroscopy. Lidocaine 1% was used to anesthetize the skin over each target destination with a 25ga needle. A 22 ga, 3.5 inch spinal needle was advanced to the location of the medial branch at the junction of the superior articular process and the transverse process using intermittent fluoroscopy in the AP view. Isovue 300M contrast 0.2ml was injected at each level outlining the borders for each level in the AP/lateral views and confirmed in the foraminal view. There was no evidence of vascular or intrathecal uptake. The above injectate was slowly injected at each target destination. At the end of the procedure the needles were withdrawn and Band-Aids were applied for a dressing. Post Procedure: Patient was taken to the recovery and monitored. The patient was provided a Pain Log to continue to record the patient's response to the target- specific procedure prior to the patient's follow-up visit with the referring physician. Patient was stable upon discharge. Detailed post procedure instructions were provided. Patient was asked to call in the event of worsening pain, fever, weakness, numbness or bladder or bowel incontinence. Postoperatively, the patient demonstrates the following changes with hyperextension and with tenderness over the suspected joint(s). Provacative testing using the facet loading test Right side Left side Directly before the block ?VAS (0-10) = 0/10 VAS (0-10) = 6/10 5 minutes after the block VAS (0-10) = 0/10 VAS (0-10) = 0/10 Percentage relief obtained with this diagnostic block N/A 100 % Any improved physical functioning directly after the blocks? Improved range of motion Based on the medial branches blocked today, if the patient meets insurance criteria for radiofrequency, the treatment should result in the denervation of the left C3-4 and C4-5 facet joint nerves. We would expect to denervate a total of 2 facets during the radiofrequency ablation. Complications: None
== END 2022-05-05 09:38 | disposition home or self-care (01) ==
PROVIDERS: PCP Family Medicine; Referring Provider Anesthesiology; Visit Provider Anesthesiology
DX: M47.812 Spondylosis without myelopathy or radiculopathy, cervical region (principal)
CPT/HCPCS: 64490; 64491

== ENCOUNTER 2022-06-29 08:15 | Outpatient (CLI) | payer MEDICARE, OTHER, SELFPAY ==
[2022-03-24 09:53] VITALS: BMI 28.9
[2022-06-29] VITALS (7 sets, daily range): BP systolic 123–161; BP diastolic 63–83; PULSE 69–83; RESP 16–20; TEMP 36.2; O2SAT 94–98
--- NOTE | 2022-06-29 08:16 | DI.RAD.S_ITS ---
PROCEDURE: PAIN C/T FACET INJ/BLK 1ST L INDICATIONS: SPINAL STENOSIS COMPARISON: [facility], , PAIN C/T FACET INJ/BLK 1ST L, 05/05/2022, 9:12. FINDINGS: Fluoroscopic spot filming was performed to verify placement of spinal needles at the C3-4 5 level(s), as labeled on the films. Appropriate location(s) of the needle tip(s) was confirmed by injection of iodinated contrast. IMPRESSION: Cervical needle placement as above. Dictated by: Gracie Hines M.D. on 06/29/2022 at 20:54 Approved by: Gracie Hines M.D. on 06/29/2022 at 20:54
[2022-06-29] MEDS: IOPAMIDOL 15 ML VIAL 3 ML INJ (09:14)
[2022-06-29] MEDS: LIDOCAINE 2% INJ MDV 20ML 20 ML INJ (09:15)
--- NOTE | 2022-06-29 13:10 | P.PCN_ITS ---
Date/Time/Diagnoses Date of procedure: 06/29/22 Time of procedure: 09:00 Procedure Notes Physician: Shiv Hair Total Fluoroscopy time (seconds): 25 Total sedation minutes: 0 Procedure in detail & Post-procedure care: Left C3, 4, 5 Cervical Medial Branch Blocks Indications: Ernestina is presenting for treatment of cervical spondylosis with cervical pain. Preoperative diagnosis: Left cervical spondylosis Postoperative diagnosis: Same Pre-procedure History: Patient demonstrates today moderate to severe non- radicular neck pain without neurologic deficit aggravated by hyperextension yes Neck pain greater than arm pain? yes Patient today has tenderness over the suspected joint(s) yes History of post-traumatic injury? no Hypertrophic arthropathy yes Neck pain associated with suspected motion segment instability, hypermobility or pseudoarthrosis no Pre-testing pain score (VAS): 10/10 Focused Examination: Ax3 Mood and affect are normal Vital Signs: VSS Consent: Following review of allergies and potential side effects/complications, including, but not necessarily limited to, infection, allergic reaction, local tissue breakdown, stroke, temporary or permanent nerve injury, paralysis, and possible , the patient indicated that they understood and agreed to proceed.? An informed consent document was signed by the patient, witnessed by a nurse and placed in the patient's chart.? Additionally, other treatment options including medications and physical therapy were reviewed with the patient. All questions were answered. Site was then marked. Anesthesia: Local Position: Prone Monitoring: NIBP, Pulse oximetry, 3 lead EKG Needle used: 22G 3.5 inch spinal needle Contrast: Isovue 300M Injectate: 2% lidocaine 0.5 mL per site Procedure: The patient was brought into the procedure room and positioned into the prone position. Skin was prepped with a Chloraprep solution, allowed to air dry, and then draped in sterile fashion.? The left C3, 4, 5 articular pillars were visually identified with fluoroscopy. Lidocaine 1% was used to anesthetize the skin over each target destination with a 25ga needle. A 22 ga, 3.5 inch spinal needle was advanced to the location of the medial branch at the junction of the superior articular process and the transverse process using intermittent fluoroscopy in the AP view. Isovue 300M contrast 0.2ml was injected at each level outlining the borders for each level in the AP/lateral views and confirmed in the foraminal view. There was no evidence of vascular or intrathecal uptake. The above injectate was slowly injected at each target destination. At the end of the procedure the needles were withdrawn and Band-Aids were applied for a dressing. Post Procedure: Patient was taken to the recovery and monitored. The patient was provided a Pain Log to continue to record the patient's response to the target- specific procedure prior to the patient's follow-up visit with the referring physician. Patient was stable upon discharge. Detailed post procedure instructions were provided. Patient was asked to call in the event of worsening pain, fever, weakness, numbness or bladder or bowel incontinence. Postoperatively, the patient demonstrates the following changes with hyperextension and with tenderness over the suspected joint(s). Provacative testing using the facet loading test Right side Left side Directly before the block ?VAS (0-10) = 10/10 VAS (0-10) = 10/10 5 minutes after the block VAS (0-10) = 0/10 VAS (0-10) = 0/10 Percentage relief obtained with this diagnostic block 100% 100% Any improved physical functioning directly after the blocks? Range of motion Based on the medial branches blocked today, if the patient meets insurance criteria for radiofrequency, the treatment should result in the denervation of the left C3-4 and C4-5 facet joint nerves. We would expect to denervate a total of 2 facets during the radiofrequency ablation. Complications: None
== END 2022-06-29 09:45 | disposition home or self-care (01) ==
PROVIDERS: PCP Family Medicine; Referring Provider Anesthesiology; Visit Provider Anesthesiology
DX: M47.812 Spondylosis without myelopathy or radiculopathy, cervical region (principal)
CPT/HCPCS: 64490; 64491

== ENCOUNTER 2022-07-13 10:04 | Outpatient (CLI) | payer MEDICARE, OTHER, SELFPAY ==
[2022-03-24 09:53] VITALS: BMI 28.9
[2022-07-13] VITALS (13 sets, daily range): BP systolic 98–157; BP diastolic 56–82; PULSE 57–78; RESP 14–18; TEMP 36.4; O2SAT 95–98
--- NOTE | 2022-07-13 10:06 | DI.RAD.S_ITS ---
PROCEDURE: PAIN C/T MEDIAL N RFA INDICATIONS: SPINAL STENOSIS COMPARISON: None. FINDINGS: Fluoroscopic spot filming was performed to verify placement of spinal needles at the left C3, C4 and C5 level(s), as labeled on the films. Appropriate location(s) of the needle tip(s) was confirmed by injection of iodinated contrast. IMPRESSION: Fluoroscopy for pain management. Dictated by: Sophy Fowler M.D. on 07/13/2022 at 13:40 Approved by: Sophy Fowler M.D. on 07/13/2022 at 13:41
[2022-07-13] MEDS: MIDAZOLAM 2 MG/2 ML VIAL 1 MG IV ×2 (10:37→10:58)
[2022-07-13] MEDS: BUPIVACAINE 0.5% (PF) 10 ML VIAL 2 ML INJ (10:44)
[2022-07-13] MEDS: DEXAMETHASONE 10 MG/ML VIAL INJ (10:44)
[2022-07-13] MEDS: LIDOCAINE 2% INJ MDV 20ML 20 ML INJ (10:45)
--- NOTE | 2022-07-13 12:12 | P.PCN_ITS ---
Date/Time/Diagnoses Date of procedure: 07/13/22 Time of procedure: 10:30 Procedure Notes Physician: Shiv Hair Total Fluoroscopy time (seconds): 32 Total sedation minutes: 34 Procedure in detail & Post-procedure care: Left C3, 4, 5 Cervical Medial Branch Radio Frequency Ablation Indications: Ernestina is presenting for treatment of cervical spondylosis with cervical pain. Preoperative diagnosis: Left cervical spondylosis Postoperative diagnosis: Same Pre-procedure History: Patient demonstrates today moderate to severe non- radicular neck pain without neurologic deficit aggravated by hyperextension yes Neck pain greater than arm pain? yes Patient today has tenderness over the suspected joint(s) yes History of post-traumatic injury? no Hypertrophic arthropathy yes Neck pain associated with suspected motion segment instability, hypermobility or pseudoarthrosis no Focused Examination: Ax3 Mood and affect are normal Vital Signs: VSS ASA: 2 Consent: Following review of allergies and potential side effects/complications, including, but not necessarily limited to, infection, allergic reaction, local tissue breakdown, stroke, temporary or permanent nerve injury, paralysis, and possible , the patient indicated that they understood and agreed to proceed.? An informed consent document was signed by the patient, witnessed by a nurse and placed in the patient's chart.? Additionally, other treatment options including medications and physical therapy were reviewed with the patient. All questions were answered. Site was then marked. Position: Prone Monitoring: NIBP, Pulse oximetry, 3 lead EKG Needle used: 20 guage, 100 mm, 10 mm active tip Anesthesia: Local with IV sedation. After review of previous anesthetic history and IV conscious sedation, the patient was deemed safe to proceed with today's procedure with IV conscious sedation. IV sedation was accomplished with midazolam 2 mg administered by the RN after order by Dr. Hair. Sedation was titrated to patient comfort during the course of the procedure. Patient remained responsive to all verbal commands. Procedure: The patient was brought into the procedure room and positioned into the prone position. Skin was prepped with a Chloraprep solution, allowed to air dry, and then draped in sterile fashion.? The left C3-4 and C4-5 facet joints were visually identified with fluoroscopy. Lidocaine 1% was used to anesthetize the skin over each target destination with a 25ga needle. The target point for the treatment was the articular pillar of the left C3, 4, 5 vertebra. The needle was directed to each of these sites using a posterior approach and under fluoroscopic guidance. AP, foraminal and lateral radiographs were taken to confirm proper needle placement. No paresthesias were noted. The stylet was removed and the radiofrequency probe was inserted through the cannula. Each l evel was individually tested. The impedance was between 300 and 800 ohms at all levels.? Sensory stimulation up to 2V elicited neck and trapezius region discomfort and no arm or leg discomfort. Motor stimulation was then carried out at 2Hz and minimally up to 2V. There was no evidence of motor stimulation in the upper extremities. After negative aspiration, 1ml of 2% lidocaine was injected at each of the levels and radiofrequency denervation carried out using 80 degrees Celsius for 90 seconds. During the procedure there was no pain elicited in the extremities. After ablation, a mixture of 10 mg dexamethasone with 0.5% bupivacaine 2 mL was injected in equal amounts among the sites. At the end of the procedure the needles were withdrawn and Band-Aids were applied for a dressing. This procedure is expected to denervate the left C3-4 and C4-5 facet joints. Post Procedure: Patient was taken to the recovery and monitored. The patient was provided a Pain Log to continue to record the patient's response to the target- specific procedure prior to the patient's follow-up visit with the referring physician. Patient was stable upon discharge. Detailed post procedure i nstructions were provided. Patient was asked to call in the event of worsening pain, fever, weakness, numbness or bladder or bowel incontinence. Complications: None
== END 2022-07-13 11:35 | disposition home or self-care (01) ==
LOC: RAD 10:05
PROVIDERS: PCP Family Medicine; Referring Provider Anesthesiology; Visit Provider Anesthesiology
DX: M47.812 Spondylosis without myelopathy or radiculopathy, cervical region (principal)
CPT/HCPCS: 64633; 64634; 99152; 99153; J1100; J2250

== ENCOUNTER → 2022-08-20 17:14 | Outpatient (CLI) | payer MEDICARE, OTHER, SELFPAY ==
[2022-03-24 09:53] VITALS: BMI 28.9
--- NOTE | 2022-08-20 18:15 | DI.RAD.S_ITS ---
PROCEDURE: XR LUMBAR SPINE 2-3V INDICATIONS: Right-sided leg and low back pain TECHNIQUE: 3 views of the lumbar spine were acquired. COMPARISON: [facility], , XR LUMBAR SPINE MIN 4V, 11/06/2019, 10:39. FINDINGS: Bones: The lumbar spine demonstrates multilevel degenerative changes with dextroscoliosis of the lumbar spine. Disc space narrowing is seen throughout the lumbar spine. The sacroiliac joints have degenerative changes. No vertebral body height loss. Soft tissues: Overlying bowel gas pattern is normal. No suspicious soft tissue calcifications. IMPRESSION: Severe multilevel degenerative changes of the lumbar spine with disc disease and facet arthrosis at all levels. No acute abnormality. Dictated by: Chavez Azul M.D. on 08/20/2022 at 17:52 Approved by: Chavez Azul M.D. on 08/20/2022 at 17:55
== END ==
PROVIDERS: PCP Family Medicine; Referring Provider Registered Nurse; Visit Provider Registered Nurse
DX: M47.816 Spondylosis without myelopathy or radiculopathy, lumbar region (principal); M51.26 Other intervertebral disc displacement, lumbar region
CPT/HCPCS: 72100

== ENCOUNTER → 2022-08-28 09:22 | Outpatient (CLI) | payer MEDICARE, OTHER, SELFPAY ==
[2022-03-24 09:53] VITALS: BMI 28.9
--- NOTE | 2022-08-28 09:23 | DI.MRI.S_ITS ---
PROCEDURE: MR LUMBAR SPINE WO CON INDICATIONS: LBP with Right L4/5 radiculopathy TECHNIQUE: Noncontrast sagittal T1 spin echo and T2 fast echo, sagittal STIR, and T2 fast spin echo through the lumbar spine. In cases with scoliosis, additional coronal T2 fast spin echo may be performed. COMPARISON: [facility], MR, MR LUMBAR SPINE WO CON, 05/23/2018, 19:29. FINDINGS: Image quality: Excellent. Alignment and Curvature: There is normal bony alignment. Bone Marrow: Marrow is of normal overall signal. No acute vertebral body compression fractures. Hemangiomas are present at T12 and L3. Modic type 2 endplate changes at multiple levels. Spinal Cord: Conus medullaris terminates at the L1 level. Visualized cord demonstrates normal signal and size. Paraspinous Soft Tissues: No paravertebral masses. T12-L1: Diffuse disc bulge causes mild right foraminal stenosis. The left foramen and central canal are patent. There is a small synovial cyst on the right measuring 3 mm. L1-L2: Disc space narrowing and endplate degenerative changes. Bilateral facet hypertrophy. Diffuse disc bulge. Severe right foraminal stenosis and moderate left foraminal stenosis. The central canal has mild stenosis. L2-L3: Disc space narrowing. Diffuse disc bulge with a protrusion which extends cephalad centrally. The facets are hypertrophic. Moderate right and severe left foraminal stenosis. The central canal has mild stenosis. L3-L4: Disc space narrowing. Diffuse disc bulge with a large extrusion which extends caudally. This measures 13 x 8 mm in cross-sectional dimension and 2.1 cm craniocaudal and extends caudally in the right anterior epidural space. Severe bilateral foraminal stenosis. Severe central canal stenosis, especially on the right. L4-L5: Disc space narrowing and endplate degenerative changes. Diffuse disc bulge. Facet hypertrophy bilaterally. Severe right and moderate left foraminal stenosis. The central canal is patent. L5-S1: The diffuse disc bulge. Bilateral facet hypertrophy. Severe bilateral foraminal stenosis. The central canal is patent. IMPRESSION: 1. Large disc extrusion at L3-4. The disc extrusion extends caudally in the right anterior epidural space impinging the exiting right L3, L4, and L5 nerve roots. 2. Multilevel lumbar spondylosis at the remaining levels causing severe foraminal stenosis at multiple additional levels. 3. No abnormal cord signal. Dictated by: Chavez Azul M.D. on 08/28/2022 at 9:05 Approved by: Chavez Azul M.D. on 08/28/2022 at 9:42
== END ==
PROVIDERS: PCP Family Medicine; Referring Provider Physical Medicine & Rehabilitation; Visit Provider Physical Medicine & Rehabilitation
DX: M51.16 Intervertebral disc disorders with radiculopathy, lumbar region (principal); M47.27 Other spondylosis with radiculopathy, lumbosacral region; M47.26 Other spondylosis with radiculopathy, lumbar region; M48.061 Spinal stenosis, lumbar region without neurogenic claudication; M48.07 Spinal stenosis, lumbosacral region
CPT/HCPCS: 72148

== ENCOUNTER 2022-09-06 07:36 | Outpatient (CLI) | payer MEDICARE, OTHER, SELFPAY ==
[2022-03-24 09:53] VITALS: BMI 28.9
[2022-09-06] VITALS (8 sets, daily range): BP systolic 115–137; BP diastolic 59–67; PULSE 72–86; RESP 14–22; TEMP 36.3; O2SAT 94–99
--- NOTE | 2022-09-06 07:39 | DI.RAD.S_ITS ---
PROCEDURE: PAIN L INTERLAMINAR/CAUDAL INJ INDICATIONS: SPONDYLOSIS COMPARISON: None. FINDINGS: Fluoroscopic spot filming was performed to verify placement of spinal needles at the right paramidline L3-L4 level(s), as labeled on the films. IMPRESSION: Fluoroscopic imaging utilized during epidural steroid injection at L3-L4 Dictated by: Bismark Aguilar M.D. on 09/06/2022 at 11:10 Approved by: Bismark Aguilar M.D. on 09/06/2022 at 11:12
[2022-09-06] MEDS: MIDAZOLAM 2 MG/2 ML VIAL IV (08:35)
[2022-09-06] MEDS: IOPAMIDOL 15 ML VIAL 3 ML INJ (08:40)
[2022-09-06] MEDS: BUPIVACAINE 0.25% (PF) VIAL 2 ML INJ (08:41)
[2022-09-06] MEDS: DEXAMETHASONE 10 MG/ML VIAL 20 MG INJ (08:41)
[2022-09-06] MEDS: BETAMETHASONE 30 MG/5 ML MDV 6 MG INJ (08:41)
--- NOTE | 2022-09-06 08:56 | P.PCN_ITS ---
Date/Time/Diagnoses Date of procedure: 09/06/22 Time of procedure: 08:56 Pre-procedure diagnosis: 1. HNP WITH RADICULAR FEATURES, 2. MULTILEVEL CENTRAL STENOSIS, Post-procedure diagnosis: same Procedure Notes Procedure: 1. FLUOROSCOPICALLY GUIDED CONTRAST CONTROLLED INTERLAMINAR EPIDURAL STEROID INJECTION - L3/4 Indications: Ernestina is referred by Dr. Cardenas for treatment of Bilateral Foraminal Stenosis L>R LE symptoms. Physician: Tanner Gillespie Total Fluoroscopy time (seconds): 12 Total sedation minutes: 15 Complications: none Procedure in detail & Post-procedure care: FINDINGS Multilevel Central Spinal Stenosis with Nerve Root Compression DESCRIPTION OF PROCEDURE Fluoroscopically guided, contrast-controlled L3/4 translaminar epidural steroid injection. Following review of allergy and review of potential side effects and complications, including, but not necessarily limited to, infection, allergic reaction, local tissue breakdown, temporary as well as permanent nerve injury, paralysis, stroke and possible , the patient indicated that the patient understood and agreed to proceed. An informed consent document was signed by the patient, witnessed by a nurse, and placed in the patient's chart. Additionally, other treatment options including modalities, medications, and physical therapy were reviewed with the patient. After review of previous anaesthesic history and IV conscious sedation the patient was deemed safe to proceed with today?s procedure with IV conscious sedation as ASA class II designation. Safety time-out was performed to confirm patient ID, procedure to be performed and site of procedure. IV sedation was accomplished with a combination of 2mg of Versed was administered by the RN after DO order, titrated to patient comfort during the course of the procedure while the patient remained responsive to all verbal commands. In the prone position, following sterile prep and drape of the lumbar region, the L3/4 translaminar space was identified fluoroscopically. The skin was anesthetized via a 25-gauge, 1.5-inch needle with 1% lidocaine solution. At this point, a 22-gauge short bevel spinal needle was atraumatically introduced and advanced under fluoroscopic guidance into the region of the L3/4 translaminar space. Depth was confirmed on lateral view. Radiological data, including multiple fluoroscopic views of the lumbar spine, reveal a spinal needle at the L3/4 translaminar space. Lateral views then show placement of the needle in the epidural space. Subsequent views show contrast material flowing superiorly and inferiorly in the epidural space. No vascular or intrathecal uptake is observed. At this point, using loss of resistance technique with saline and air, the epidural space was entered. This was confirmed following negative aspiration with injection of approximately 1.5 cc of Isovue 200, showing excellent epidural flow without vascular or intrathecal uptake. At this point, 1cc of 1% lidocaine solution combined with 4cc or 20mg of dexamethasone and 12mg of betamethasone was injected without incident. The patient tolerated the procedure well without signs or symptoms of complications prior to transfer to the recovery area continued monitoring without incident. The patient was then transferred to the recovery area where they were observed for an appropriate period of time after the injection. The patient reported a VAS score of 10 prior to the procedure and a post- procedure VAS of 2. POST OP INSTRUCTIONS The patient was provided a Pain Log to continue to record their response to the target-specific procedure prior to follow-up visit with their referring physician. Additionally, specific post-injection care instructions and a contact number to our office were provided if concerns arise regarding possible complications associated with the procedure are suspected.
== END 2022-09-06 09:14 | disposition home or self-care (01) ==
LOC: RAD 07:37
PROVIDERS: PCP Family Medicine; Referring Provider Physical Medicine & Rehabilitation; Visit Provider Physical Medicine & Rehabilitation
DX: M51.16 Intervertebral disc disorders with radiculopathy, lumbar region (principal); M48.061 Spinal stenosis, lumbar region without neurogenic claudication
CPT/HCPCS: 62323; 99152; J0702; J1100; J2250; J3490

== ENCOUNTER → 2022-09-22 14:59 | Outpatient (CLI) | payer MEDICARE, OTHER, SELFPAY ==
[2022-03-24 09:53] VITALS: BMI 28.9
[2022-09-22 15:47] LABS: Add Manual Diff / Slide Review NO; Basophils Absolute Auto 100 /uL (0-100); Basophils Percent Auto 2.5 % (0-2); Eosinophils Absolute Auto 100 /uL (0-450); Eosinophils Percent Auto 4.4 % (2-4); Hematocrit 30.4 % (36-46); Hemoglobin 10.2 g/dL (12.0-16.0); Lymphocytes Absolute Auto 1100 /uL (1100-4500); Lymphocytes Percent Auto 34.6 % (25-40); Mean Corpuscular HGB Conc 33.5 % (30-36); Mean Corpuscular Hemoglobin 31.5 PG (26-34); Monocytes Absolute Auto 800 /uL (0-900); Neutrophils Absolute Auto 1000 /uL (1500-7000); Neutrophils Percent Auto 32.5 % (50-75); Platelet Count 188 X10^3/uL (150-400); Red Blood Cell Count 3.23 X10^6/uL (4.0-5.2); Red Cell Distribution Width 17.3 % (11.6-14.8); White Blood Cell Count 3.2 X10^3/uL (4.5-11.0)
[2022-09-22 15:58] LABS: BUN Creatinine Ratio 35.1 (6-22); Blood Urea Nitrogen 20 mg/dL (7-17); Calcium 8.8 mg/dL (8.4-10.2); Carbon Dioxide 26 mmol/L (22-32); Chloride 98 mmol/L (98-107); Estimated Glomerular Filt Rate > 60 mL/min (>60); Glucose 87 mg/dL (80-110); HEMOLYSIS < 15 (0-50); Potassium 3.3 mmol/L (3.4-5.1); Sodium 129 mmol/L (137-145)
[2022-09-23 05:37] LABS: x Labcorp Estim. Avg Glu (eAG) 88 mg/dL (.); x Labcorp Hemoglobin A1c 4.7 % (4.8-5.6)
== END ==
PROVIDERS: PCP Family Medicine; Referring Provider Orthopaedic Surgery Orthopaedic Surgery of the Spine; Visit Provider Orthopaedic Surgery Orthopaedic Surgery of the Spine
DX: Z01.818 Encounter for other preprocedural examination (principal); R73.9 Hyperglycemia, unspecified; Z01.812 Encounter for preprocedural laboratory examination
CPT/HCPCS: 36415; 80048; 83036; 85025; 93005; 93010

== ENCOUNTER → 2022-09-27 15:15 | Outpatient (CLI) | payer MEDICARE, OTHER, SELFPAY ==
[2022-03-24 09:53] VITALS: BMI 28.9
--- NOTE | 2022-09-27 | DI.CT.S_ITS ---
PROCEDURE: CT KNEE LEFT WITHOUT CON INDICATIONS: Periprosthetic fracture TECHNIQUE: Noncontrast 1-1.5 mm axial sections acquired from the mid-patella to the proximal tibia, with coronal and sagittal reformats. COMPARISON: [facility], CR, XR KNEE 1 OR 2 VIEWS LEFT, 04/19/2022, 11:25. [facility], CR, XR KNEE 1 OR 2 VIEWS LEFT, 09/15/2022, 12:29. [facility], CT, CT KNEE LEFT WITHOUT CON, 01/04/2022, 10:31. FINDINGS: Image quality: Diagnostic. Beam hardening artifacts from left knee prosthesis are seen. Bones: Patient is status post left total knee arthroplasty. There is a comminuted fracture involving superior and medial portion of patella with superior and anterior displacement of fractured fragments. There is up to 2.6 mm diastasis at fracture site. Fairly well corticated margin along fracture site is seen concerning for nonunion. No femoral or tibial fracture is seen. No fibular fracture. No evidence of hardware loosening or failure is seen in distal femur and proximal tibia. No suspicious bony lesions. Soft tissues: Moderate joint effusion is noted, no definite calcified intra-articular loose bodies. No abnormal soft tissue calcifications. Distal quadriceps tendon and patellar tendon are grossly intact. IMPRESSION: 1. Comminuted fracture involving superior and medial portion of patella adjacent to the patella prosthesis. Displacement of the fractured fragments are seen. Fairly well corticated margin with up to 2.6 mm diastasis at fracture site concerning for nonunion. 2. No other periprosthetic fracture. No dislocation. Moderate joint effusion, no calcified loose bodies. 3. No full-thickness quadriceps tendon or patellar tendon rupture. No abnormal soft tissue calcifications. Dictated by: Alfa House M.D. on 09/28/2022 at 9:58 Approved by: Alfa House M.D. on 09/28/2022 at 10:12
== END ==
PROVIDERS: PCP Family Medicine; Referring Provider Student in an Organized Health Care Education/Training Program; Visit Provider Student in an Organized Health Care Education/Training Program
DX: S82.042A Displaced comminuted fracture of left patella, initial encounter for closed fracture (principal); M97.8XXD Periprosthetic fracture around other internal prosthetic joint, subsequent encounter; M25.462 Effusion, left knee
CPT/HCPCS: 73700

== ENCOUNTER 2022-10-17 11:04 | Inpatient (IN) | payer MEDICARE, OTHER, SELFPAY ==
[2022-03-24 09:53] VITALS: BMI 28.9
[2022-09-26 10:11] VITALS: BMI 28.9
[2022-10-17] VITALS (14 sets, daily range): BP systolic 103–149; BP diastolic 61–96; PULSE 86–95; RESP 11–19; TEMP 35.8–36.7; O2SAT 93–99; BMI 28.9
[2022-10-17] MEDS: LACTATED RINGERS 1,000 ML 42 ML IV ×2 (11:45→15:26)
--- NOTE | 2022-10-17 13:09 | PM.PREOP ---
Pre-operative Note COVID-19 Criteria for continued procedure: Expected advancement of disease process, Possibility delay results in more complex future surgery or treatment, Increased loss of function, Continuing or worsening of significant or severe pain, Deterioration of the patient's condition or overall health and Delay expected to result in less-positive ultimate med/surg outcome Interval Note History & Physical reviewed/Exam performed by Physician: Yes Changes to H&P: No
[2022-10-17] MEDS: CLINDAMYCIN 900 MG in SODIUM CHLORIDE 0.9% 100 ML 106 MG IV (13:55)
--- NOTE | 2022-10-17 14:31 | SUR.OPER ---
Prone on spine table, head in foam head support, padded chest and pelvic supports, gel pad at knees, lower legs supported by pillows, gel pads between ankles and knees medially; nipples, genitalia and toes free of pressure, arms secured on foam padded arm boards at <90 degrees abduction. Tape over blanket at thigh secured to table.
[2022-10-17] MEDS: BUPIVACAINE 0.25% (PF) 60 ML, EPINEPHrine 0.15 MG INJ (15:05)
[2022-10-17] MEDS: BUPIVACAINE LIPOSOME 266 MG/20 ML VIAL INJ (16:25)
--- NOTE | 2022-10-17 16:42 | PM.OP.1 ---
Operative Date/Time/Diagnoses Date of procedure: 10/17/22 Time of procedure: 13:30 Pre-op diagnosis: 1. L3-4, L4-5 spinal stenosis 2. Lumbar radiculopathy 3. Lumbar epidural mass Post-op diagnosis: same Procedure & Clinicians Procedure: 1. L3-4 Postero-lateral and posterior interbody fusion 2. L3-4 interbody cage placement. 3. L3-4 decompressive laminectomy with bilateral facetecomies 4. L3-4 Posterior non-segmental instrumentation 5. L4-5 right hemilaminectomy 6. [place] of bone marrow from iliac crest 7. Utilization of microsurgical technique and operating microscope Same procedure as scheduled: Yes Indications: Patient has been having chronic back pain and worsening lumbar radiculopathy. Patient failed multiple conservative management with worsening pain weakness and numbness in her lower extremity. Patient has been having difficulty performing activity of daily living. After discussing risks benefits of treatment options, patient elected proceed with surgery. Surgeon: Padmini Daniel Marble Cutter: Alyssa Beck Click Yes if Unassisted: No Anesthesia Type: General Operative Notes Closure Type: primary Specimen(s): none sent Prosthetic devices, grafts, tissues, transplants, or devices: Globus CREO MIS screws, Rise cage Estimated Blood Loss (mL): 200 Blood products transfused: none Procedure in detail: Patient was seen in the preoperative area. Risks and benefits of the surgery was discussed with the patient. Informed consent was obtained from the patient and placed in the chart. Surgical site was marked. Patient was taken to the operative room. General anesthesia was administered. Prophylactic antibiotic was given to the patient less than 30 min before the incision was made. Patient was placed into a prone position on the Thiago table. Patient's back was then prepped and draped in the sterile fashion. Time-out was performed at this time. Using AP and lateral C-arm imaging the interval between L3-4 was identified and marked on patient's back. A 2 inch incision 2 in from midline was made on the right side first. The fascia was incised in line with skin incision. Globus MARS retractors was placed inside the incision and docked onto the L3-4 lamina. Using microsurgical technique and operating microscope, a L3-4 laminectomy and L3-4 facetectomy was performed using a Kerrison rongeur. The disc space at L3-4 was identified. And a total diskectomy was performed at L3-4 level. Patient was found to have significant amount of white, firm, caseous material causing central and lateral recess stenosis. The material is inconsistent with disc material. The epidural mass was also significantly adhered to the dura making decompression removal significantly more difficult than a diskectomy. Careful resection was performed by removing epidural mass for the purpose of decompression. The white epidural mass was sent off for analysis including crystal culture sensitivity Gram stain for identification. The laminectomy and facetectomy was performed in order to decompress patient's cauda equina as well as the nerve roots exiting at the L3-4, L4-5 level. The endplates were decorticated using a rasp and shaver. The total diskectomy and decortication was performed at L3-4 level in order to to accomplish a L3-4 fusion. The local bone from the laminectomy and facetectomy was saved for local bone grafting. After the total diskectomy and decortication was completed, Globus viacell bone graft material was combined with local bone that was harvested earlier. At this time, a separate skin is incision was made over the iliac crest. A Jamshidi needle was inserted into the iliac crest through a separate skin incision. 5 cc of bone marrow aspiration was obtained through the separate skin incision using a Jamshidi needle from the iliac crest. The bone marrow aspiration was combined with local bone and the via cell bone grafting material. The bone grafting material was placed into the L3-4 interbody space along with a expandable cage. The cage was expanded to its maximum height using the torque limiting screwdriver. There was a small pin hole size dural defect identified at the L3-4 level. The defect was patched with Dura-gen and Tisseel. There was no CSF leakage after the patch was completed. At this time the MARS retractor was redirected over the L4 lamina. Using microsurgical technique and operating microscope, a L4-5 heminectomy was performed using the Kerrison rongeur. The ligamentum flavum was also resected at the side of the hemilaminectomy for further decompression of the epidural space. At this time a mirror image incision was made on the L3-4 side. The fascia was incised in line with the skin incision. Globus MARS retractor was inserted and docked onto the L3-4 posterolateral gutter. Using the power drill, posterior-lateral decortication was performed at L3-4 level until bleeding cortical bone was identified. The remaining bone grafting material was placed into the L3-4 posterior lateral gutter he order to accomplish posterolateral fusion at the L3-4 level. Using the double C-arm technique, pedicle screws were placed into the L3 and L4 pedicles bilaterally. This was done by placing the Jamshidi needle into the pedicles, then placing the guidewires over the Jamshidi needle, and finally placing the cannulated screws over the guidewires bilaterally. After the pedicle screws were placed, 2 titanium rods was locked into the heads of the pedicle screws using locking caps and torque limiting screwdriver. After all the hardware was placed, and confirmed with AP and lateral C-arm imaging, the wound was then irrigated with sterile normal saline and packed with Ray-Don gauze for 3 min to accomplish hemostasis. After the gauze was removed the deep fascia was closed with #1 Vicryl suture. The subcutaneous layer was closed with 2-0 Vicryl. The skin was closed with skin joey. Patient tolerated the procedure well. There were no complications. The Operation could not have been safely performed without compromising the technical result or length of the procedure, without the assistance of a skilled assistant professor surgical technology. The assistant professor surgical technology was medically necessary for proper positioning, retraction and manipulation of instruments, proper exposure, surgical preparation, and manipulation of tissue. Patient's head of bed will be kept flat overnight for CSF leak precaution. Patient's head of bed can be elevated slowly starting at 7:00 a.m. 30? at the time until able to sit up without headache. Patient can then participate with physical therapy once able to sit up without headaches. Complications: none Post-operative Condition: stable Disposition: PACU Plan for aftercare: Admit to inpatient hospital Keep head of bed flat until tomorrow AM
--- NOTE | 2022-10-17 16:46 | DI.RAD.S_ITS ---
PROCEDURE: XR LUMBAR SPINE 2-3V INDICATIONS: L3-4 TLIF TECHNIQUE: Fluoroscopic images were obtained during an operative procedure and submitted for interpretation following the completion of the procedure. COMPARISON: [facility], CR, XR LUMBAR SPINE 2-3V, 08/20/2022, 18:10. [facility], MR, MR LUMBAR SPINE WO CON, 08/28/2022, 9:29. FINDINGS: These fluoroscopic images were performed for intraoperative localization. On these images, posterior pedicle screws can be seen at L3 and L4. The L3 screws are seen at the superior portion that vertebral body. There is an L3-L4 disc spacer. Moderate prominent L4-L5 disc space narrowing can be seen. Please correlate with intraoperative findings. IMPRESSION: Intraoperative study within normal limits. If clinically appropriate, please consider follow-up postoperative lumbar CT. Dictated by: Spenser Denson M.D. on 10/17/2022 at 16:11 Approved by: Spenser Denson M.D. on 10/17/2022 at 16:12
[2022-10-17] MEDS: LORazepam 2 MG/ML INJ 0.25 MG IV (17:02)
--- NOTE | 2022-10-17 17:21 | SUR.PHASEI ---
Report called to Kadie
[2022-10-17] MEDS: OXYCODONE IR 5 MG TABLET PO (17:27)
--- NOTE | 2022-10-17 17:32 | SUR.PHASEI ---
Patient reported 8/10 back pain, applesauce provided. Patient medicated with oxycodone. Transported to floor by Lilly with belongings bag, cane, glasses.
[2022-10-17] MEDS: LACTATED RINGERS 1,000 ML 125 ML IV (18:22)
[2022-10-17] MEDS: PREGABALIN 75 MG CAPSULE PO (20:06)
[2022-10-17] MEDS: LABETALOL 100 MG TABLET PO (20:07)
[2022-10-17] MEDS: SENNOSIDES 8.6 MG TABLET 17.2 MG PO (20:07)
[2022-10-17] MEDS: HYDROMORPHONE 0.5 MG INJ IV (20:08)
[2022-10-17] MEDS: PANTOPRAZOLE DR 40 MG TABLET PO (20:08)
[2022-10-17] MEDS: ONDANSETRON 4 MG ODT SL (21:10)
[2022-10-17] MEDS: IPRATROPIUM 0.06% NASAL 15 ML 2 SPRAY NASAL (21:39)
[2022-10-17] MEDS: DOCUSATE 100 MG CAPSULE PO (22:18)
[2022-10-17] MEDS: CLINDAMYCIN 600 MG/50 ML PIGGYBACK 50 MG IV (22:22)
[2022-10-17] MEDS: hydrOXYzine pamoate 25 MG CAPSULE PO (22:27)
[2022-10-17] MEDS: ACETAMINOPHEN 325 MG TABLET 650 MG PO (23:26)
[2022-10-18] VITALS (10 sets, daily range): BP systolic 101–169; BP diastolic 58–90; PULSE 82–98; RESP 17–19; TEMP 36.2–37.1; O2SAT 93–97
[2022-10-18] MEDS: HYDROCODONE/ACET 5/325 TABLET 1 TAB PO ×2 (01:52→09:01)
[2022-10-18] MEDS: LACTATED RINGERS 1,000 ML 125 ML IV (02:37)
[2022-10-18] MEDS: CLINDAMYCIN 600 MG/50 ML PIGGYBACK 50 MG IV (05:39)
--- NOTE | 2022-10-18 07:51 | PM.PNPO.1 ---
Subjective Subjective Date Patient Seen: 10/18/22 Time Patient Seen: 07:51 Interval history: Pain states her pain is moderate to severe. Denies headache. No nausea or vomiting. No fever chills. Patient did elevate the head of her bed about 5 minutes prior to me entering the room to approximately 10?. No headache with elevating head of bed. Exam Vital Signs (past 8 hours): - 10/18/22 00:45 10/18/22 02:49 10/18/22 04:35 Temperature 98.2 F 97.3 F L Pulse Rate 82 87 Respiratory Rate 17 19 Blood Pressure 169/90 H 140/81 132/73 Pulse Oximetry 96 97 Oxygen Flow Rate 2 2 Fraction of Inspired Oxygen 28 SaO2/FiO2 Ratio 342 Oxygen Delivery Method Nasal Cannula Oxygen Flow Rate 2 Narrative Exam Narrative: 67-year-old female resting comfortably in bed in no apparent distress. Motor functions intact bilateral lower extremities. Sensation grossly intact to light touch bilateral lower extremities. Const General: cooperative and comfortable Nutritional Appearance: average body habitus Orientation: alert Resp Effort & Inspection: normal respiratory effort and able to speak in complete sentences [facility] Medical History (Updated 08/29/22 @ 14:33 by Tanner Gillespie DO) Arthritis Asthma Back injury (05/03/13) Cervical radiculopathy Cervicalgia Chicken pox (~1960) Dislocation of left shoulder joint Diverticulitis Diverticulosis Dry eye (2006) Easy bruisability Facet arthropathy, cervical Facet arthropathy, lumbar Fibromyalgia (2013) GERD (gastroesophageal reflux disease) Hayfever Herniated nucleus pulposus, L3-4 right 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 Lumbar radiculopathy Measles (~1960) Mumps (~1959) Occipital neuralgia of left side Osteoarthritis (2008) Osteopenia Psoriasis Rheumatoid arthritis (05/2008) Spondylosis without myelopathy or radiculopathy, cervical region Surgical History (Updated 09/26/22 @ 09:58 by German Rivers RN) Anesthesia History of back surgery (12/06/13) History of bladder surgery (12/2013) History of knee replacement (12/14/10) 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) History of surgery (11/20/19) History of surgery on arm (02/21/13) History of tonsillectomy (1961) Hx of foot surgery (2019) Hx of foot surgery (2020) Hx of hemorrhoidectomy (08/28/19) Hx of shoulder surgery (04/22/15) S/P epidural steroid injection (12/03/13) Status post hysterectomy (04/2000) Status post total shoulder arthroplasty Social History marital status: household members: spouse occupational status: previously employed Smoking Status: Never smoker alcohol intake: current substance use type: does not use Assessment & Plan Post-op Postoperative Procedures: Procedures Operation Date: 10/17/22 12:45 Actual Procedure Side Surgeon p L3-4 TLIF, L4-5 Right Hemilaminectomy Padmini Daniel MD Postoperative day: 1 Postoperative status narrative: Stable status post L3-L4 fusion, L4-L5 right hemilaminectomy, dural defect L3-L4, defect was patched with DuraGen and Tisseel Postoperative plan narrative: Patient has had a bed kept flat overnight for CSF leak precautions. Patient's head of bed can be elevated slowly starting this morning at 7:00 a.m.. 30? at a time until able to sit up without headache. Patient then can participate with physical therapy once able to sit up without headaches. Discussed protocol with nurse this morning. Multimodal pain management Discharge likely home tomorrow Quality VTE Deep Vein Thrombosis/Pulmonary Embolism Present on Admission: No
[2022-10-18] MEDS: PREGABALIN 75 MG CAPSULE PO ×2 (09:01→20:02)
[2022-10-18] MEDS: HYDROXYCHLOROQUINE 200 MG TABLET PO (09:01)
[2022-10-18] MEDS: lisinopriL 20 MG TABLET PO (09:01)
[2022-10-18] MEDS: DOCUSATE 100 MG CAPSULE PO ×2 (09:01→20:03)
[2022-10-18] MEDS: LABETALOL 100 MG TABLET PO ×2 (09:01→21:05)
[2022-10-18] MEDS: AMLODIPINE 5 MG TABLET 10 MG PO (09:02)
--- NOTE | 2022-10-18 11:24 | PT.IIE ---
Current Diagnoses Spinal stenosis, lumbar region with neurogenic claudication (10/17/22) Other intervertebral disc displacement, lumbar region (10/17/22) Surgery Performed Operation Date: 10/17/22 12:45 Actual Procedures p L3-4 TLIF, L4-5 Right Hemilaminectomy - Padmini Daniel MD Surgical History (Last Updated 09/26/22 @ 09:58 by German Rivers RN) Anesthesia History of back surgery (12/06/13) History of bladder surgery (12/2013) History of knee replacement (12/14/10) 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) History of surgery (11/20/19) History of surgery on arm (02/21/13) History of tonsillectomy (1961) Hx of foot surgery (2019) Hx of foot surgery (2020) Hx of hemorrhoidectomy (08/28/19) Hx of shoulder surgery (04/22/15) S/P epidural steroid injection (12/03/13) Status post hysterectomy (04/2000) Status post total shoulder arthroplasty Medical History (Last Updated 08/29/22 @ 14:33 by Tanner Gillespie DO) Arthritis Asthma Back injury (05/03/13) Cervical radiculopathy Cervicalgia Chicken pox (~1960) Dislocation of left shoulder joint Diverticulitis Diverticulosis Dry eye (2006) Easy bruisability Facet arthropathy, cervical Facet arthropathy, lumbar Fibromyalgia (2013) GERD (gastroesophageal reflux disease) Hayfever Herniated nucleus pulposus, L3-4 right 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 Lumbar radiculopathy Measles (~1960) Mumps (~1959) Occipital neuralgia of left side Osteoarthritis (2008) Osteopenia Psoriasis Rheumatoid arthritis (05/2008) Spondylosis without myelopathy or radiculopathy, cervical region Physical Therapy Inpatient Evaluation/Re-Eval M1 PT/OT-IP Prior Functional Status Start: 10/18/22 12:31 Freq: NEEDED Status: Active Protocol: Document 10/18/22 11:24 DLM (Rec: 10/18/22 13:24 DLM [id number]) Medical Review Prior Functional Status Medical History Reviewed Yes Diet/Fluid Consistency Regular Communication WNL, glasses Mobility and Gait She ambulates with a cane, can do community distances. She reports having issues with feet and she has to have shoes on if she walks very far. Her back pain increased when she walked before surgery. Activities of Daily Living and IADL's Independent with ADL's. Needs help with housekeeping due to back pain. She drives Social History Household Members spouse Living Arrangements House Number of Floors (Floors) Two Floors Number of Stairs To Enter/Railing? can stay on main level of house, 13 steps up with rail to get to the main level of the house Home Environment Standard Height Toilet,Tub/ Shower Home Equipment Bedside Commode,Hand Held Shower Employment Status Retired Additional Social History Comment she has an adjustable bed, she often sleeps in her chair at home She fell 08/23/22 and hit right knee which has been sore to the touch (x-rays were negative). M2 PT-IP Current Condition Start: 10/18/22 12:31 Freq: NEEDED Status: Active Protocol: Document 10/18/22 11:24 DLM (Rec: 10/18/22 13:24 DL [id number]) Physical Therapy Current Condition Current Condition Evaluation Date 10/18/22 Treatment Diagnosis L3-4 TLIF, L4-5 hemilaminectomy, dural repair, impaired mobility/gait Onset Date 10/17/22 M3 PT-IP Subjective Start: 10/18/22 12:31 Freq: NEEDED Status: Active Protocol: Document 10/18/22 11:24 DLM (Rec: 10/18/22 13:24 DL [id number]) Subjective Physical Therapy Visit Type Type Initial Evaluation Visit Start Time 10:40 Visit Stop Time 11:24 Total Visit Minutes 44 Number of DIRECTOR OF [employer] Visits 0 Physical Therapy Visit Comments Patient Comments She reports no headaches today in bed nor when up moving Patient Goals Discharge home with family help Therapy Pain Assessment Pain When Pain Assessed During Mobility Pain Present Pain Present Pain Reported Location Right Leg Intensity 7 Scale Used Numeric (0 - 10) Description Aching,Tender,With Movement Pain Behaviors Guarding Pain Management Techniques Re-positioning,Timing of Activity with Medications back Intensity 4 Scale Used Numeric (0 - 10) Description Aching,With Movement Pain Behaviors Guarding Pain Management Techniques Apply Cold M4 PT-IP Mobility and Gait Start: 10/18/22 12:31 Freq: NEEDED Status: Active Protocol: Document 10/18/22 11:24 DLM (Rec: 10/18/22 13:24 DLM [id number]) PT-Bed Mobility Assessment Rolling Type of Rolling Log Rolling Level of Assist Standby Assistance Supine to Sit Supine to Sit Standby Assistance Scooting Scooting to Edge of Bed Moderate Assistance Scooting Up and Down in Bed Dependent PT-Transfer Assessment Sit to and From Stand Sit to and from Stand Contact Guard Assistance,Use of Upper Extremities Equipment Transfer Assistive Device Gait Belt,Front Wheeled Walker Transfers Transfer Destination Chair,Bedside Commode Transfer Technique Stand Step Pivot Transfer Ability Level of Assist Contact Guard Assistance,Use of Upper Extremities Comments Mobility Comments Pt up to bedside commode to urinate, she reports she has not been able to use the bedpan. Nursing was notified that she voided. Pt up to the recliner this visit with ice in incisional area. She is more comfortable with feet on floor than reclined back at this time. Gait Assessment Gait Gait Assistance Required: Contact Guard Assist Distance (Feet) 40 Assistive Devices Assistive Device Gait Belt,Front Wheeled Walker Gait Deviations General Gait Pattern Decreased Stride Length Factors Limiting Gait Function Factors Limiting Gait Function Decreased Activity Tolerance, Decreased Strength,Limited Range of Motion,Pain,Poor Balance Comments Gait Comments She reports shoulder fatigue after gait from using the FWW. Adjusted the FWW for improved height to manage UE fatigue. Stair Climbing Assessment Comments Stair Climbing Comments pt is not ready for stair training at this time due to limited activity tolerance and pain PT-Balance Assessment Sitting Balance and Reactions Static Sitting Balance Ability Good Dynamic Sitting Balance Ability Good Standing Balance and Reactions Static Standing Balance Ability Good Dynamic Standing Balance Ability Good Device Used fWW M5 PT-IP Objective Assessments Start: 10/18/22 12:31 Freq: NEEDED Status: Active Protocol: Document 10/18/22 11:24 [facility] (Rec: 10/18/22 13:24 [facility] [id number]) Orientation Orientation/Cognition Level of Alertness Alert Orientation Name,Age,Birthday,Month,Date, Year,Day of Week,Place, Situation Language Function Ability No Deficits Noted Safety Awareness Understands Safety Issues Memory Description No Deficits Noted Gross Range of Motion Upper Extremity ROM Assessment Left Impaired Impairments shoulde elevation to 85 degrees s/p total shoulder and revision Lower Extremity ROM Assessment Within Functional Limits Impairments pain in right LE during mobility Strength Upper Extremity Strength Assessment Left Impaired Shoulder flexion 3+/5 Elbow 5/5 Lower Extremity Strength Assessment Right Impaired Hip flexion 2+/5 with pain Knee ext 2+/5, flex 4+/5 Ankle DF 5/5 Comments Strength Comments she reports having more pain in right LE than in her back but only in the thigh area Coordination Assessment Gross Coordination Gross Coordination WNL Sensation Assessment Sensation Gross Sensation WNL Comments Sensation Comments she reports tender feet and needs shoes to walk very far Muscle Tone Muscle Tone WNL Yes Other Assessments Other Other Assessments she reports lumpy areas in right thigh that she is related to her back and right LE pain, feels better when she rubs on the area M6 PT-IP Treatment Start: 10/18/22 12:31 Freq: NEEDED Status: Active Protocol: Document 10/18/22 11:24 DLM (Rec: 10/18/22 13:24 DLM [id number]) Physical Therapy Treatment Exercises Exercises Ankle Pumps Education Education Provided Precautions,Safety Other Treatments Other Treatment Performed her Daughter and present during this visit educated pt in spine precautions M7 PT-IP Assessment and Plan Start: 10/18/22 12:31 Freq: NEEDED Status: Active Protocol: Document 10/18/22 11:24 DLM (Rec: 10/18/22 13:24 DLM [id number]) PT Summary Assessment and Plan Potential Rehabilitation Potential Good Status of Condition at Evaluation Evolving Summary Impairments Pain,ROM,Strength,Balance,Bed Mobility,Transfers,Gait, Activity Tolerance Progress Towards Goals Slow Progress due to Pain Assessment Summary Ernestina is alert and resting in bed with head elevated 26 degrees. She reports no headaches today. She tolerated light activity this visit including short distances of gait and up to the recliner. Her family is present today. Her pain limits her activity tolerance at this time. She is not ready for discharge home today but anticipate she may be ready tomorrow if she continues to progress. Will do stair training as tolerated by her pain since she reports 13 steps to get into her house . She has a supportive family who is prepared to help her at discharge. Goals Bed Mobility Goal Independent Transfer Goal Independent,Front Wheeled Walker Gait Goal Independent,Front Wheel Walker Gait Distance 150 feet Other Goals up/down 13 steps with rail and CG assist to enter the house Days to Meet Goals 2 Frequency of Treatment Frequency Of Treatment Twice a Day Treatment Plan Physical Therapy Treatment Plan Bed Mobility Training,Transfer Training,Gait Training, Therapeutic Exercise,Balance Retraining,Post Op Education, Discharge Planning,Hot or Cold Pack,Neuromuscular Re-ed Other Recommendations and Next Treatment spine precaution education Focus Stair training before discharge home Precautions Lumbar Precautions Log Roll,No Twisting,Limit Bending,Lifting Restriction of 10 lbs,Gait Belt above Incisional Area Other Precautions Pt had dural repair during surgery. She is to stay flat until 7AM 10/18/22. Progress activity as tolerated as long as no headache when up. Limited left shoulder ROM after total shoulder and revision Weight Bearing Status Weight Bearing Status Weight Bear as Tolerated Recommendations To Nursing Amount of Assist Needed 1 Person Assist Discharge Recommendations PT Discharge Recommendations Home with Assistance Other Discharge Recommendations Daughter and to assist her She is not ready for discharge today Transportation Needs at Discharge Private Vehicle
--- NOTE | 2022-10-18 13:45 | OT.IP.EVAL ---
Current Diagnoses Spinal stenosis, lumbar region with neurogenic claudication (10/17/22) Other intervertebral disc displacement, lumbar region (10/17/22) Surgery Performed Operation Date: 10/17/22 12:45 Actual Procedures p L3-4 TLIF, L4-5 Right Hemilaminectomy - Padmini Daniel MD Past Medical History (Last Updated 08/29/22 @ 14:33 by Tanner Gillespie DO) Arthritis Asthma Back injury (05/03/13) Cervical radiculopathy Cervicalgia Chicken pox (~1959) Dislocation of left shoulder joint Diverticulitis Diverticulosis Dry eye (2006) Easy bruisability Facet arthropathy, cervical Facet arthropathy, lumbar Fibromyalgia (2013) GERD (gastroesophageal reflux disease) Hayfever Herniated nucleus pulposus, L3-4 right 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 Lumbar radiculopathy Measles (~1960) Mumps (~1959) Occipital neuralgia of left side Osteoarthritis (2008) Osteopenia Psoriasis Rheumatoid arthritis (05/2008) Spondylosis without myelopathy or radiculopathy, cervical region Surgical History (Last Updated 09/26/22 @ 09:58 by German Rivers RN) Anesthesia History of back surgery (12/06/13) History of bladder surgery (12/2013) History of knee replacement (12/14/10) 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) History of surgery (11/20/19) History of surgery on arm (02/21/13) History of tonsillectomy (1961) Hx of foot surgery (2019) Hx of foot surgery (2020) Hx of hemorrhoidectomy (08/28/19) Hx of shoulder surgery (04/22/15) S/P epidural steroid injection (12/03/13) Status post hysterectomy (04/2000) Status post total shoulder arthroplasty Occupational Therapy Inpatient Evaluation/Re-Eval M1 PT/OT-IP Prior Functional Status Start: 10/18/22 13:48 Freq: NEEDED Status: Active Protocol: Document 10/18/22 13:07 [facility] (Rec: 10/18/22 14:17 [facility] [id number]) Medical Review Prior Functional Status Medical History Reviewed Yes Diet/Fluid Consistency Regular Communication WNL, glasses Mobility and Gait She ambulates with a cane, can do community distances. She reports having issues with feet and she has to have shoes on if she walks very far. Her back pain increased when she walked before surgery. Activities of Daily Living and IADL's Independent with ADL's. Needs help with housekeeping due to back pain. She drives Social History Household Members spouse Living Arrangements House Number of Floors (Floors) Two Floors Number of Stairs To Enter/Railing? can stay on main level of house, 13 steps up with rail to get to the main level of the house Home Environment Standard Height Toilet,Tub/ Shower Home Equipment Bedside Commode,Hand Held Shower Employment Status Retired Additional Social History Comment she has an adjustable bed, she often sleeps in her chair at home She fell 08/23/22 and hit right knee which has been sore to the touch (x-rays were negative). M2 OT-IP Current Condition Start: 10/18/22 13:48 Freq: Status: Active Protocol: Document 10/18/22 13:07 [facility] (Rec: 10/18/22 14:17 [facility] [id number]) Occupational Therapy Current Condition Current Condition Evaluation Date 10/18/22 Treatment Diagnosis S/P L3-4, L4-5 TLIF Diagnosis Onset Date 10/17/22 Post Operative Precautions Lumbar Precautions Log Roll,No Twisting,Limit Bending,Lifting Restriction of 10 lbs,Gait Belt above Incisional Area M3 OT- IP Subjective and Pain Start: 10/18/22 13:48 Freq: Status: Active Protocol: Document 10/18/22 13:07 [facility] (Rec: 10/18/22 14:17 [facility] [id number]) OT- Subjective Occupational Therapy Visit Type Type Initial Evaluation Visit Start Time 12:03 Visit Stop Time 13:46 Total Visit Minutes 53 Notes Split treatment [id number], [id number] Occupational Therapy Visit Comments Patient Comments Pt agreed to get up. Patient/Caregiver Goals To go home. OT Pain Assessment Pain When Pain Assessed At Rest Pain Present Pain Present Pain Reported Location Right Leg Intensity 4 Scale Used Numeric (0 - 10) M4 OT- IP ADL's Start: 10/18/22 13:48 Freq: Status: Active Protocol: Document 10/18/22 13:07 [facility] (Rec: 10/18/22 14:17 [facility] [id number]) OT [id number] Comments OT Self-Feeding Comments Not at meal time OT ADL-Grooming Comments OT Grooming Comments Not performed. OT ADL-Oral Care Comments Oral Care Comments Not performed. OT ADL-Dressing General Eval Lower Body Dressing Ability Maximum Assistance Areas Needing Assistance Underpants/Brief,Socks Assistive Devices Dressing Assistive Devices Rn Procedures Comments OT Dressing Comments Pt also needing assist to help thread her right foot through the brief with use of the flight information expediter. Pt needing assist to help pull up her brief up over her hips. OT ADL-Toileting General Evaluation Toileting Ability Moderate Assistance,Maximum Assistance Areas Needing Assistance Manage Clothing Comments OT Toileting Comments Pt able to wipe from behind and able to follow her back precautions. Pt needing assist to do brief management needs. OT ADL-Bathing Comments OT Bathing Comments Not performed. M5 OT- IP IADL's Start: 10/18/22 13:48 Freq: Status: Active Protocol: Document 10/18/22 13:07 [facility] (Rec: 10/18/22 14:17 [facility] [id number]) OT-Instrumental Activities of Daily Living Deficits IADL Deficits Identified Deficits Home Safety Awareness Awareness of Need for Assistance at Home Good Awareness Home Safety Comments Pt able to help pt physically. Pt states her has just been recently diagnosed with dementia. M6 OT- IP Functional Cognition Start: 10/18/22 13:48 Freq: Status: Active Protocol: Document 10/18/22 13:07 [facility] (Rec: 10/18/22 14:17 [facility] [id number]) Cognitive Factors Limiting Selfcare Function Cognitive Ability Level of Alertness Alert Patient Orientation Name,Place,Situation Attention Span Ability Capable of Focused Attention, Capable of Sustained Attention Ability to Follow Commands Able to Follow One Step Commands Cognitive Comments Cognitive Assessment Comments Pt able to follow commands for back precautions for ADL and mobility needs. OT- Vision and Hearing OT- Hearing Assessment OT- Hearing Assessment WFL OT- Vision Assessment Visual Acuity Glasses All The Time M7 OT- IP Mobility and Balance Start: 10/18/22 13:48 Freq: Status: Active Protocol: Document 10/18/22 13:07 [facility] (Rec: 10/18/22 14:17 [facility] [id number]) OT- Bed Mobility Assessment Supine to Sit Supine to Sit Assist Minimal Assistance,Bedrails Sit to Supine Sit to Supine Assist Minimal Assistance,Moderate Assistance Scooting Scooting to Edge of Bed Moderate Assistance OT-Transfer Assessment Sit to and From Stand Sit to and from Stand Moderate Assistance Transfers Transfer Ability Minimal Assistance Technique Transfer Destination Bed,Chair,Toilet Transfer Technique Stand Step Pivot Devices Transfer Assistive Devices Gait Belt,Front Wheeled Walker Comments Mobility Comments MOD to stand from lower surfaces to FWW. LILLIAN with Fww and heavy use of BUE on the FWW so able to move her RLE, as pt having pain with her RLE . OT- Balance Assessment Sitting Balance and Reactions Static Sitting Balance Ability Good Dynamic Sitting Balance Ability Good Standing Balance and Reactions Static Standing Balance Ability Fair Dynamic Standing Balance Ability Fair M9 OT- IP Assessment and Plan Start: 10/18/22 13:48 Freq: Status: Active Protocol: Document 10/18/22 13:07 [facility] (Rec: 10/18/22 14:17 [facility] [id number]) OT Summary Assessment and Plan Potential Rehabilitation Potential Good Analytic Complexity at Evaluation Low Summary OT Impairments Pain,Strength,Balance, Functional Mobility,Dressing, Toileting,Bathing,Toilet Transfers,Shower Transfers, Activity Tolerance Progress Towards Goals Slow Progress due to Pain,Slow Progress due to Medical Issues,Slow Progress due to Activity Tolerance Assessment Summary Pt low complexity and main barrier are steps, pain and having more difficulty to move her RLE, and needing assist for mobility and ADl needs. Pt has a supportive but recently has found out that he has dementia. Pt will benefit from home with assist and home health. Goals Grooming Goal Independent Dressing Goal Minimal Assistance Toileting Goal Independent Bathing Goal Standby Assistance Toilet Transfer Goal Independent Shower Transfer Goal Standby Assistance Days to Meet Goals 10 Frequency of Treatment Frequency Of Treatment Once a Day Treatment Plan OT Treatment Plan ADL Training,Functional Mobility,Patient/Family Education,Discharge Planning Other Treatment Recommendations and Next Practice use of LB dressing Treatment Focus equipment, caregiver training Discharge Recommendations OT Discharge Recommendations Home with 12/09 Assist Available,Home Health Transportation Needs at Discharge Private Vehicle
[2022-10-18] MEDS: ACETAMINOPHEN 325 MG TABLET 650 MG PO ×2 (13:50→23:49)
[2022-10-18] MEDS: CYCLOBENZAPRINE 10 MG TABLET 5 MG PO (13:51)
--- NOTE | 2022-10-18 14:01 | CM.DANOTE ---
Addendum entered by AIDA Camacho 10/18/22 15:20: ADD: Per WOOL DYER, pt was unable to complete stairs this afternoon and she has 13 to enter her home. WOOL DYER hopeful she will have better pain control tomorrow and be able to complete stairs but if pt cannot tolerate stairs might recommend SNF. SW attempted to meet with pt to discuss back up of SNF and pt getting hygiene care and spouse wants pt home but agreeable to referral to [facility] as back up plan for now. SW called [facility] and left detailed msg requesting review in case SNF. BF Original Note: Patient is a 67 yo female who was admitted on 10/17/22 for TLIF. Pt has [place] and [place] for [place] and her PCP is Dr. Cleveland Cardenas. EMR was reviewed. Per Ortho PA, pt had a tear during surgery and had some pain management issues and slow to incline this morning but then will be able to work with PT/OT once upright without headache. Per PT, pt participated in therapy with family bedside and anticipate pt should be able to d/c home with family assist but will need to do stairs prior to d/c as she has about 13 to enter the home but can then stay on the first level. SW met bedside with pt, spouse, and adult Dtr and explained role and pt confirms she lives at home in [place] with her and has two local supportive Dtrs who can assist as needed. Spouse has some of his own physical limitations and no longer drives himself. Pt is active and independent at baseline and does not use DME for ambulation but does have raised toilet seat and walker at home if needed. Pt denies any hx of HH or SNF and last year had a total shoulder surgery and was able to d/c home with spouse and outpt PT. Pt feels HH might be helpful at d/c but will defer to PT/OT ongoing eval and recommendations and pt and spouse would be agreeable with HH if needed. Plan: SW to follow closely for further PT/OT and stairs training to confirm safe d/c home with spouse and family assist and r/o HH needs. AIDA Camacho Discharge Planning/Care Management Advanced directive, confirm from FAMILY Start: 10/17/22 18:04 Freq: Q24H Status: Active Protocol: Document 10/17/22 18:04 MM (Rec: 10/17/22 18:35 MM [id number]) Advance Directive, confirm on record Time 18:34 Person contacted pt and fam at bedside. Requested to bring in tomorrow Copy received No Advanced directive available on record No CM Discharge Assessment Start: 10/18/22 13:56 Freq: Status: Active Protocol: Document 10/18/22 13:56 BF (Rec: 10/18/22 13:58 BF [id number]) Discharge Planning Assessment Assigned Product Promoter Retail Pet AIDA Tesfaye DPOA/Assigned Designee Name spouse Juvenal Contact Information [phone] Advance Directives? Yes Advance Directives on File No: asked pt's family to bring in the sheet History Provided By Patient,Family Member, Significant Other,Medical Record Has Patient been admitted in last 30 No days? Prior Living Arrangements House Household Members spouse Type of transporation used prior to Drives own vehicle admit Independent with ADL's Yes Is patient alert and oriented? Yes Caregiver for Another No DME Already Rented / Owned Elevated Toilet Seat,FWW / Walker Patient/Family Preference Home with Home Health,OP PT Therapy Comment Pending further PT/OT, HH vs outpt likely Barriers to Discharge No Discharge Plan Home Community Services Physical Therapy,Occupational Therapy Transportation Arrangement Dtr POV Additional Comment Awaitng PT/OT recommendations. Whiteboard Updated in Patient Room with Yes name and ext. # of Product Promoter Retail Pet Review Status In Process Please Provide Date Initial DC 10/18/22 Assessment Was Performed Next Review Type Continued Stay Review Pre-Anesthesia Assessment Start: 09/26/22 09:58 Freq: Status: Active Protocol: Document 09/26/22 10:11 AK (Rec: 09/26/22 10:43 AK [id number]) Pre-Anesthesia Assessment Patient Information Reviewed Via Phone Assessment Assessment Completed With Patient Diagnostic Results BMP/CMP,CBC,EKG Primary Care Provider Cleveland Cardenas Medical Clearance Received No Seen Specialist in Last 12 Months Yes Specialist Seen Orthopedist,Other Comment kinesiology internship Preferred Language Swiss Height 154.94 cm Weight 69.4 kg Body Mass Index (BMI) 28.9 Hearing Ability Normal Visual Assist Glasses Dentition Type Teeth, Natural Present,Dental Implants Barriers to Learning None Other Aids No Hx Anesthesia Reactions No Hx Family Anesthesia Reaction No: Pt adopted Hx Malignant Hyperthermia No Hx Blood Transfusions No Hx Blood Transfusion Reaction No Anesthesia Review Requested No Additional comment Refuses care by Dr. Starr Tunnel Mucker No alcohol intake current alcohol intake frequency 0-2 drinks per day Alcohol Intake Frequency Other: 2 rum daily Smoking Status Never smoker Substance Use Type does not use Pain Present Pain Reported Musculoskeletal Symptoms Difficulty Walking,Joint Pain History of Falling (Recent or History of Yes ) Comment 08/23/22 fell in house, cleaning -denied new injury Prosthesis or Orthotic Device Cane Mental Status Oriented to own ability Is patient on oxygen? No Does patient have EDEN/SOB No Hx Sleep Apnea No CPAP/BIPAP use not prescribed Currently Taking a Beta Sea Yes: Labetalol Can You Climb a Flight of Stairs Without Yes SOB Hx Chest Pain No Hx SOB No Hx Syncope or Dizziness No Anti-Coagulant Therapy No Has a Field Auditor No Cardiac Testing No Hx Pacemaker/ICD No Pacemaker Rep Required? No Cardiac Clearance Received No Diet Type At Home Regular Dysphagia No Gastrointestinal Symptoms Reflux Urinary Catheter Present No Hx Urinary Self Catheterization No Diabetes No HgbA1C 4.7 Date 09/22/22 Patient No Lactating No Hx Drug Resistant Organism No Presence of External or Internal Medical Yes: Left TSA and LT TKA, Devices bilateral feet, Have you had any close contact with No someone diagnosed with COVID-19? Are you experiencing any of these No symptoms symptoms? Received a COVID vaccine? Yes: 3 Marital Status Lives With spouse Current Living Arrangements House Number of Floors (Floors) Two Floors Number of Stairs To Enter/Railing? 13/yes Support System Spouse Does the Patient Have Assistance After Yes Surgery Patient Discharge Plan Description Return Home Feels Safe in Current Environment Yes Been Physically Hurt or Threatened By a No Person in Current Environment Do you have thoughts of harming yourself None or others? Are you currently considering suicide? No Do you have a plan to hurt yourself or No Plan others? Do You Have Any Spiritual Beliefs That No May Affect Your HC Choices? Do You Have Any Cultural Practices That No May Affect Your HC Choices? Who Can We Speak to About Patient's Care Family, friends Identifying Code for Release of Patient Declined Information Health Care Proxy/Next of Kin Juvenal () Health Care Proxy Phone Number Juvenal: [phone] Emergency Contact Name Juvenal () Darcy ( daughter) Emergency Contact Phone Number Juvenal: [phone] Darcy: [phone] Advance Directives? Yes Advance Directives on File No Requested Patient Bring Advanced Yes Directives DOS Power of Safety And Security Officer No PAC Instructions Assistance for 24 hours post- op,Do not shave/clip surgical site,Medications to take/avoid ,Nasal antibiotic,No ETOH/ petroleum product on skin DOS, NPO,Ortho class,Post-op transportation,Pre-surgical wash,Sensory aids,Sturdy shoes /comfortable clothes,Do not bring valuables and remove jewelry
--- NOTE | 2022-10-18 14:10 | PT.IPTN ---
Current Diagnoses Spinal stenosis, lumbar region with neurogenic claudication (10/17/22) Other intervertebral disc displacement, lumbar region (10/17/22) Surgery Performed Operation Date: 10/17/22 12:45 Actual Procedures p L3-4 TLIF, L4-5 Right Hemilaminectomy - Padmini Daniel MD Physical Therapy Treatment Note M2 PT-IP Current Condition Start: 10/18/22 12:31 Freq: NEEDED Status: Active Protocol: Document 10/18/22 11:24 DLM (Rec: 10/18/22 13:24 [facility] [id number]) Physical Therapy Current Condition Current Condition Evaluation Date 10/18/22 Treatment Diagnosis L3-4 TLIF, L4-5 hemilaminectomy, dural repair, impaired mobility/gait Onset Date 10/17/22 M3 PT-IP Subjective Start: 10/18/22 12:31 Freq: NEEDED Status: Active Protocol: Document 10/18/22 15:08 TS (Rec: 10/18/22 15:51 TS [id number]) Subjective Physical Therapy Visit Type Type Treatment Note Visit Start Time 14:10 Visit Stop Time 14:40 Total Visit Minutes 30 Notes Family present. BP in sitting 105/63. Number of TARE MAN Visits 1 Physical Therapy Visit Comments Patient Comments Pt reports pain and weakness in RLE, agreeable to PT. Patient Goals Discharge home with family help Therapy Pain Assessment Pain When Pain Assessed During Mobility Pain Present Pain Present Pain Reported Location Right Leg Intensity 9 Scale Used Numeric (0 - 10) Description Aching,Tender,With Movement Pain Behaviors Guarding,Holding Area,Wincing Pain Management Techniques Apply Cold,Modification of Treatment,Re-positioning, Timing of Activity with Medications M4 PT-IP Mobility and Gait Start: 10/18/22 12:31 Freq: NEEDED Status: Active Protocol: Document 10/18/22 15:08 TS (Rec: 10/18/22 15:51 TS [id number]) PT-Transfer Assessment Sit to and From Stand Sit to and from Stand Minimal Assistance,1 Person Assistance,Use of Upper Extremities Equipment Transfer Assistive Device Gait Belt,Front Wheeled Walker Comments Mobility Comments Pt found resting in chair, BP in sitting prior to mobility 105/63. Sit to stand from chair Sidney with BUE support on arms of chair and w/FWW. Pt ambulated ~70' CGA with slow step to gait, pt c/o increasing pain in RLE and felt like it was going to buckle, pt ambulated back to room, sat in chair for rest break. Sit to stand x1 Sidney with FWW, demonstrates good carryover of sequencing from previous attempt. Pt attempted step x1 on step stool with SPC in LUE and RUE on sink counter for support, pt could not weight bear on RLE for step, had x1 buckling in RLE, is unsafe for stairs at this time. Pt was left in chair with family in room, all needs met, RN notified of pt's progress and RLE weakness/pain . Gait Assessment Gait Gait Assistance Required: Contact Guard Assist Distance (Feet) 70 Assistive Devices Assistive Device Gait Belt,Front Wheeled Walker Gait Deviations General Gait Pattern Decreased Stride Length Factors Limiting Gait Function Factors Limiting Gait Function Decreased Activity Tolerance, Decreased Strength,Limited Range of Motion,Pain,Poor Balance Comments Gait Comments See mobility comments. Stair Climbing Assessment Comments Stair Climbing Comments Attempted x1 step on stool, could not complete due to RLE weakness/pain. PT-Balance Assessment Sitting Balance and Reactions Static Sitting Balance Ability Good Dynamic Sitting Balance Ability Good Standing Balance and Reactions Static Standing Balance Ability Good Dynamic Standing Balance Ability Fair Device Used fWW M5 PT-IP Objective Assessments Start: 10/18/22 12:31 Freq: NEEDED Status: Active Protocol: Document 10/18/22 11:24 [facility] (Rec: 10/18/22 13:24 [facility] [id number]) Orientation Orientation/Cognition Level of Alertness Alert Orientation Name,Age,Birthday,Month,Date, Year,Day of Week,Place, Situation Language Function Ability No Deficits Noted Safety Awareness Understands Safety Issues Memory Description No Deficits Noted Gross Range of Motion Upper Extremity ROM Assessment Left Impaired Impairments shoulde elevation to 85 degrees s/p total shoulder and revision Lower Extremity ROM Assessment Within Functional Limits Impairments pain in right LE during mobility Strength Upper Extremity Strength Assessment Left Impaired Shoulder flexion 3+/5 Elbow 5/5 Lower Extremity Strength Assessment Right Impaired Hip flexion 2+/5 with pain Knee ext 2+/5, flex 4+/5 Ankle DF 5/5 Comments Strength Comments she reports having more pain in right LE than in her back but only in the thigh area Coordination Assessment Gross Coordination Gross Coordination WNL Sensation Assessment Sensation Gross Sensation WNL Comments Sensation Comments she reports tender feet and needs shoes to walk very far Muscle Tone Muscle Tone WNL Yes Other Assessments Other Other Assessments she reports lumpy areas in right thigh that she is related to her back and right LE pain, feels better when she rubs on the area M6 PT-IP Treatment Start: 10/18/22 12:31 Freq: NEEDED Status: Active Protocol: Document 10/18/22 15:08 TS (Rec: 10/18/22 15:51 TS [id number]) Physical Therapy Treatment Education Education Provided Precautions,Safety M7 PT-IP Assessment and Plan Start: 10/18/22 12:31 Freq: NEEDED Status: Active Protocol: Document 10/18/22 15:08 TS (Rec: 10/18/22 15:51 TS [id number]) PT Summary Assessment and Plan Potential Rehabilitation Potential Good Summary Impairments Pain,ROM,Strength,Balance,Bed Mobility,Transfers,Gait, Activity Tolerance Progress Towards Goals Slow Progress due to Pain Assessment Summary Ernestina continues to make slow progress with her mobility due to RLE pain. She recalled 3/3 spinal precautions prior to mobility, handout was provided for reference. She performed sit to stand x2 with Sidney and use of FWW, demonstrates good carryover of sequencing. She progressed her gait to ~70' CGA with FWW, does not have any LOB but does report she feels her RLE will buckle. She attempted x1 step on stool, could not get lift due to weakness/pain in RLE, had x1 buckling of RLE. PT at this time is recommending home 12/09 with HHPT vs SNF. Pt will need to complete stair training tomorrow with caregiver training at 9:30AM. Goals Bed Mobility Goal Independent Transfer Goal Independent,Front Wheeled Walker Gait Goal Independent,Front Wheel Walker Gait Distance 150 feet Other Goals up/down 13 steps with rail and CG assist to enter the house Days to Meet Goals 2 Frequency of Treatment Frequency Of Treatment Twice a Day Treatment Plan Physical Therapy Treatment Plan Bed Mobility Training,Transfer Training,Gait Training, Therapeutic Exercise,Balance Retraining,Post Op Education, Discharge Planning,Hot or Cold Pack,Neuromuscular Re-ed Other Recommendations and Next Treatment spine precaution education Focus Stair training before discharge home Precautions Lumbar Precautions Log Roll,No Twisting,Limit Bending,Lifting Restriction of 10 lbs,Gait Belt above Incisional Area Other Precautions Pt had dural repair during surgery. She is to stay flat until 7AM 10/18/22. Progress activity as tolerated as long as no headache when up. Limited left shoulder ROM after total shoulder and revision Weight Bearing Status Weight Bearing Status Weight Bear as Tolerated Recommendations To Nursing Amount of Assist Needed 1 Person Assist Discharge Recommendations PT Discharge Recommendations Home Health,Home vs SNF Other Discharge Recommendations Daughter and to assist her She is not ready for discharge today Transportation Needs at Discharge Private Vehicle
[2022-10-18] MEDS: OXYCODONE IR 10 MG TABLET PO (17:07)
[2022-10-18] MEDS: LEFLUNOMIDE 20 MG 20 EACH PO (20:03)
[2022-10-18] MEDS: PANTOPRAZOLE DR 40 MG TABLET PO (20:03)
[2022-10-18] MEDS: OXYCODONE IR 5 MG TABLET PO ×2 (20:03→23:46)
[2022-10-18] MEDS: SENNOSIDES 8.6 MG TABLET 17.2 MG PO (20:03)
[2022-10-19] VITALS (10 sets, daily range): BP systolic 104–127; BP diastolic 62–71; PULSE 80–107; RESP 16–18; TEMP 36.2–36.6; O2SAT 92–98
[2022-10-19] MEDS: OXYCODONE IR 5 MG TABLET PO ×3 (05:01→11:43)
[2022-10-19] MEDS: ACETAMINOPHEN 325 MG TABLET 650 MG PO ×2 (05:02→16:04)
--- NOTE | 2022-10-19 07:56 | P.PN_ITS ---
Subjective Subjective Date Patient Seen: 10/19/22 Time Patient Seen: 07:57 Interval history: Patient's pain has been moderate. She was having some right hip pain yesterday and stated her right leg felt weak working with physical therapy. The hip pain today on the right is improved but still feels some weakness in the right leg. No fever or chills. No nausea vomiting. Exam Vital Signs (past 8 hours): - 10/19/22 00:00 10/19/22 04:00 10/19/22 05:23 Temperature 97.3 F L 97.6 F Pulse Rate 80 83 Respiratory Rate 17 16 Blood Pressure 127/67 115/67 Pulse Oximetry 94 92 Oxygen Delivery Method Room Air Oxygen Flow Rate 0 0 Fraction of Inspired Oxygen 28 SaO2/FiO2 Ratio 342 Oxygen Delivery Method Room Air Oxygen Flow Rate 0 Narrative Exam Narrative: Pleasant 67-year-old female sitting at bedside with the aid. Patient is in no apparent distress. Patient able to fire her hip flexors on the right. Good plantar flexion and dorsiflexion on the right. Const General: cooperative and comfortable Nutritional Appearance: average body habitus Orientation: alert Resp Effort & Inspection: normal respiratory effort and able to speak in complete sentences [facility] Medical History Arthritis Asthma Back injury (05/03/13) Cervical radiculopathy Cervicalgia Chicken pox (~1960) Dislocation of left shoulder joint Diverticulitis Diverticulosis Dry eye (2006) Easy bruisability Facet arthropathy, cervical Facet arthropathy, lumbar Fibromyalgia (2013) GERD (gastroesophageal reflux disease) Hayfever Herniated nucleus pulposus, L3-4 right 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 Lumbar radiculopathy Measles (~1960) Mumps (~1959) Occipital neuralgia of left side Osteoarthritis (2008) Osteopenia Psoriasis Rheumatoid arthritis (05/2008) Spondylosis without myelopathy or radiculopathy, cervical region Surgical History Anesthesia History of back surgery (12/06/13) History of bladder surgery (12/2013) History of knee replacement (12/14/10) 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) History of surgery (11/20/19) History of surgery on arm (02/21/13) History of tonsillectomy (1961) Hx of foot surgery (2019) Hx of foot surgery (2020) Hx of hemorrhoidectomy (08/28/19) Hx of shoulder surgery (04/22/15) S/P epidural steroid injection (12/03/13) Status post hysterectomy (04/2000) Status post total shoulder arthroplasty Social History marital status: household members: spouse occupational status: previously employed Smoking Status: Never smoker alcohol intake: current substance use type: does not use Assessment & Plan Post-op Postoperative Procedures: Procedures Operation Date: 10/17/22 12:45 Actual Procedure Side Surgeon p L3-4 TLIF, L4-5 Right Hemilaminectomy Padmini Daniel MD Postoperative day: 2 Postoperative status: doing well Postoperative plan: routine post-op care Postoperative plan narrative: Mobilize with physical therapy Multimodal pain management Discharge home today or tomorrow Quality VTE Deep Vein Thrombosis/Pulmonary Embolism Present on Admission: No
[2022-10-19] MEDS: HYDROXYCHLOROQUINE 200 MG TABLET PO (08:37)
[2022-10-19] MEDS: MULTIVITAMIN 1 TABLET 1 TAB PO (08:37)
[2022-10-19] MEDS: PREGABALIN 75 MG CAPSULE PO ×2 (08:37→20:28)
[2022-10-19] MEDS: DOCUSATE 100 MG CAPSULE PO ×2 (08:37→20:28)
[2022-10-19] MEDS: AMLODIPINE 5 MG TABLET 10 MG PO (08:37)
[2022-10-19] MEDS: LABETALOL 100 MG TABLET PO ×2 (08:37→20:32)
[2022-10-19] MEDS: lisinopriL 20 MG TABLET PO (08:37)
[2022-10-19] MEDS: ONDANSETRON 4 MG/2 ML INJ IV ×2 (08:42→22:38)
--- NOTE | 2022-10-19 09:45 | PT.IPTN ---
Current Diagnoses Spinal stenosis, lumbar region with neurogenic claudication (10/17/22) Other intervertebral disc displacement, lumbar region (10/17/22) Surgery Performed Operation Date: 10/17/22 12:45 Actual Procedures p L3-4 TLIF, L4-5 Right Hemilaminectomy - Padmini Daniel MD Physical Therapy Treatment Note M2 PT-IP Current Condition Start: 10/18/22 12:31 Freq: NEEDED Status: Active Protocol: Document 10/18/22 11:24 DLM (Rec: 10/18/22 13:24 DLM [id number]) Physical Therapy Current Condition Current Condition Evaluation Date 10/18/22 Treatment Diagnosis L3-4 TLIF, L4-5 hemilaminectomy, dural repair, impaired mobility/gait Onset Date 10/17/22 M3 PT-IP Subjective Start: 10/18/22 12:31 Freq: NEEDED Status: Active Protocol: Document 10/19/22 12:17 TS (Rec: 10/19/22 12:30 TS [id number]) Subjective Physical Therapy Visit Type Type Treatment Note Visit Start Time 09:45 Visit Stop Time 10:15 Total Visit Minutes 30 Notes Family present for caregiver training. Number of [employer] Visits 2 Physical Therapy Visit Comments Patient Comments Pt reports continued pain and weakness in RLE, agreeable to PT. Patient Goals Discharge home with family help M4 PT-IP Mobility and Gait Start: 10/18/22 12:31 Freq: NEEDED Status: Active Protocol: Document 10/19/22 12:17 TS (Rec: 10/19/22 12:30 TS [id number]) PT-Transfer Assessment Sit to and From Stand Sit to and from Stand Contact Guard Assistance,1 Person Assistance,Use of Upper Extremities Equipment Transfer Assistive Device Gait Belt,Front Wheeled Walker Comments Mobility Comments Pt found resting in chair, family present, agreeable to PT. Sit to stand CGA from caregiver and use of FWW with BUE support. She ambulated ~10 ' in room SBA with FWW and slow step to gait, had no bucklig or LOB. Pt performed step x1 MaxA with RUE counter support and left handheld assist, pt fearful of step and putting weight on RLE, c/o increasing pain, pt required max cueing for step sequencing . Pt ambulated to bed, performed sit supine with caregiver ModA, caregiver and therapist provided cues for logroll. Supine to sit ModA from caregiver, requires max cueing for sequencing. Pt was left up in chair with family in room, all needs met. Gait Assessment Gait Gait Assistance Required: Contact Guard Assist Distance (Feet) 10 Assistive Devices Assistive Device Gait Belt,Front Wheeled Walker Gait Deviations General Gait Pattern Decreased Stride Length Factors Limiting Gait Function Factors Limiting Gait Function Decreased Activity Tolerance, Decreased Strength,Limited Range of Motion,Pain,Poor Balance Comments Gait Comments See mobility comments. Stair Climbing Assessment Evaluation Level of Assist On Stairs Maximal Assistance,1 Person Assistance Devices Stair Climbing Assistive Devices Left Railing,Right Railing Technique/Endurance Stair Climbing Direction Ascend and Descend Stair Climbing Technique Step to Step Number of Steps Climbed 1 Comments Stair Climbing Comments See mobility comments. PT-Balance Assessment Sitting Balance and Reactions Static Sitting Balance Ability Good Dynamic Sitting Balance Ability Good Standing Balance and Reactions Static Standing Balance Ability Good Dynamic Standing Balance Ability Fair Device Used fWW M5 PT-IP Objective Assessments Start: 10/18/22 12:31 Freq: NEEDED Status: Active Protocol: Document 10/18/22 11:24 [facility] (Rec: 10/18/22 13:24 [facility] [id number]) Orientation Orientation/Cognition Level of Alertness Alert Orientation Name,Age,Birthday,Month,Date, Year,Day of Week,Place, Situation Language Function Ability No Deficits Noted Safety Awareness Understands Safety Issues Memory Description No Deficits Noted Gross Range of Motion Upper Extremity ROM Assessment Left Impaired Impairments shoulde elevation to 85 degrees s/p total shoulder and revision Lower Extremity ROM Assessment Within Functional Limits Impairments pain in right LE during mobility Strength Upper Extremity Strength Assessment Left Impaired Shoulder flexion 3+/5 Elbow 5/5 Lower Extremity Strength Assessment Right Impaired Hip flexion 2+/5 with pain Knee ext 2+/5, flex 4+/5 Ankle DF 5/5 Comments Strength Comments she reports having more pain in right LE than in her back but only in the thigh area Coordination Assessment Gross Coordination Gross Coordination WNL Sensation Assessment Sensation Gross Sensation WNL Comments Sensation Comments she reports tender feet and needs shoes to walk very far Muscle Tone Muscle Tone WNL Yes Other Assessments Other Other Assessments she reports lumpy areas in right thigh that she is related to her back and right LE pain, feels better when she rubs on the area M6 PT-IP Treatment Start: 10/18/22 12:31 Freq: NEEDED Status: Active Protocol: Document 10/19/22 12:17 TS (Rec: 10/19/22 12:30 TS [id number]) Physical Therapy Treatment Education Education Provided Precautions,Safety M7 PT-IP Assessment and Plan Start: 10/18/22 12:31 Freq: NEEDED Status: Active Protocol: Document 10/19/22 12:17 TS (Rec: 10/19/22 12:30 TS [id number]) PT Summary Assessment and Plan Potential Rehabilitation Potential Good Summary Impairments Pain,ROM,Strength,Balance,Bed Mobility,Transfers,Gait, Activity Tolerance Progress Towards Goals Slow Progress due to Pain Assessment Summary Ernestina continues to make slow progress with her mobility due to RLE pain and weakness. She demonstrates good carryover of sit to stand technique with FWW. She requires ModA for sit to supine and supine to sit with max cueing from caregiver and therapist. She did progress her steps to x1 with MaxA and max cueing, pt remains fearful and has increasing pain with weight bearing on RLE. PT continues to recommend SNF vs Home 12/09 with HHPT. Pt and family do not want her to go to rehab and will possibly get BLS transport inot her home since she has 13 steps. Goals Bed Mobility Goal Independent Transfer Goal Independent,Front Wheeled Walker Gait Goal Independent,Front Wheel Walker Gait Distance 150 feet Other Goals up/down 13 steps with rail and CG assist to enter the house Days to Meet Goals 2 Frequency of Treatment Frequency Of Treatment Twice a Day Treatment Plan Physical Therapy Treatment Plan Bed Mobility Training,Transfer Training,Gait Training, Therapeutic Exercise,Balance Retraining,Post Op Education, Discharge Planning,Hot or Cold Pack,Neuromuscular Re-ed Other Recommendations and Next Treatment spine precaution education Focus Stair training before discharge home Precautions Lumbar Precautions Log Roll,No Twisting,Limit Bending,Lifting Restriction of 10 lbs,Gait Belt above Incisional Area Other Precautions Pt had dural repair during surgery. She is to stay flat until 7AM 10/18/22. Progress activity as tolerated as long as no headache when up. Limited left shoulder ROM after total shoulder and revision Weight Bearing Status Weight Bearing Status Weight Bear as Tolerated Recommendations To Nursing Amount of Assist Needed 1 Person Assist Discharge Recommendations PT Discharge Recommendations Home with 12/09 Assist Available,Home Health,Home vs SNF Other Discharge Recommendations Daughter and to assist her Pt would need BLS to get up 13 steps at home. Transportation Needs at Discharge Private Vehicle
--- NOTE | 2022-10-19 14:15 | PT.IPTN ---
Current Diagnoses Spinal stenosis, lumbar region with neurogenic claudication (10/17/22) Other intervertebral disc displacement, lumbar region (10/17/22) Surgery Performed Operation Date: 10/17/22 12:45 Actual Procedures p L3-4 TLIF, L4-5 Right Hemilaminectomy - Padmini Daniel MD Physical Therapy Treatment Note M2 PT-IP Current Condition Start: 10/18/22 12:31 Freq: NEEDED Status: Active Protocol: Document 10/18/22 11:24 DLM (Rec: 10/18/22 13:24 DLM [id number]) Physical Therapy Current Condition Current Condition Evaluation Date 10/18/22 Treatment Diagnosis L3-4 TLIF, L4-5 hemilaminectomy, dural repair, impaired mobility/gait Onset Date 10/17/22 M3 PT-IP Subjective Start: 10/18/22 12:31 Freq: NEEDED Status: Active Protocol: Document 10/19/22 15:06 TS (Rec: 10/19/22 15:24 TS [id number]) Subjective Physical Therapy Visit Type Type Treatment Note Visit Start Time 14:15 Visit Stop Time 14:32 Total Visit Minutes 17 Notes Family present Number of MEDICAL CENTER DIRECTOR Visits 3 Physical Therapy Visit Comments Patient Comments Pt reports having increased pain and weakness in RLE, pt intially not agreeable to PT due to pain, with motivation pt agreeable to PT. Patient Goals Discharge home with family help Therapy Pain Assessment Pain When Pain Assessed At Rest Pain Present Pain Present Pain Reported M4 PT-IP Mobility and Gait Start: 10/18/22 12:31 Freq: NEEDED Status: Active Protocol: Document 10/19/22 15:06 TS (Rec: 10/19/22 15:24 TS [id number]) PT-Transfer Assessment Comments Mobility Comments Pt attempted sit to stand from chair with FWW, due to pain when weight bearing on RLE pt declined and requested to stay in chair. Pt agreed to perform LE exercises in chair of seated knee flex/ext, seated marches, quad set, heel slides and SLR. Pt c/o pain in RLE and has decreased strength compared to L side. Pt was left back in chair with family in room, RN notified. Gait Assessment Comments Gait Comments Unable to at this time. Stair Climbing Assessment Comments Stair Climbing Comments Unable to at this time. PT-Balance Assessment Sitting Balance and Reactions Static Sitting Balance Ability Good Dynamic Sitting Balance Ability Good Comments Other Balance Tests/Deviations/Treatment Pt did not stand this session. : M5 PT-IP Objective Assessments Start: 10/18/22 12:31 Freq: NEEDED Status: Active Protocol: Document 10/18/22 11:24 DLM (Rec: 10/18/22 13:24 DL [id number]) Orientation Orientation/Cognition Level of Alertness Alert Orientation Name,Age,Birthday,Month,Date, Year,Day of Week,Place, Situation Language Function Ability No Deficits Noted Safety Awareness Understands Safety Issues Memory Description No Deficits Noted Gross Range of Motion Upper Extremity ROM Assessment Left Impaired Impairments shoulde elevation to 85 degrees s/p total shoulder and revision Lower Extremity ROM Assessment Within Functional Limits Impairments pain in right LE during mobility Strength Upper Extremity Strength Assessment Left Impaired Shoulder flexion 3+/5 Elbow 5/5 Lower Extremity Strength Assessment Right Impaired Hip flexion 2+/5 with pain Knee ext 2+/5, flex 4+/5 Ankle DF 5/5 Comments Strength Comments she reports having more pain in right LE than in her back but only in the thigh area Coordination Assessment Gross Coordination Gross Coordination WNL Sensation Assessment Sensation Gross Sensation WNL Comments Sensation Comments she reports tender feet and needs shoes to walk very far Muscle Tone Muscle Tone WNL Yes Other Assessments Other Other Assessments she reports lumpy areas in right thigh that she is related to her back and right LE pain, feels better when she rubs on the area M6 PT-IP Treatment Start: 10/18/22 12:31 Freq: NEEDED Status: Active Protocol: Document 10/19/22 15:06 TS (Rec: 10/19/22 15:24 [id number]) Physical Therapy Treatment Exercises Exercises Quad Sets,Heel Slides,Straight Leg Raises,Seated Knee Flexion/Extension Education Education Provided Precautions,Safety Other Treatments Other Treatment Performed Pt performed quad set, heel slides, SLR, seated marches and seated knee flex/ext. M7 PT-IP Assessment and Plan Start: 10/18/22 12:31 Freq: NEEDED Status: Active Protocol: Document 10/19/22 15:06 TS (Rec: 10/19/22 15:24 [id number]) PT Summary Assessment and Plan Potential Rehabilitation Potential Good Summary Impairments Pain,ROM,Strength,Balance,Bed Mobility,Transfers,Gait, Activity Tolerance Progress Towards Goals Slow Progress due to Pain Assessment Summary Ernestina is having increased pain this afternoon in her R hip/ leg limiting her in participating in PT. She attempted to stand from chair with FWW this afternoon but due to pain when weight bearing could not come into standing. Pt had been up this morning and yesterday with therapist. Pt requested to stay in chair and was agreeable to perform LE exercises of quad sets, heel slides, SLR, seated marches and seated knee flex/ext. Pt's and families intentions are to still go home when d/c and will have BLS transport for getting into home. PT continues to recommend SNF vs Home 24/ assist and HHPT. Goals Bed Mobility Goal Independent Transfer Goal Independent,Front Wheeled Walker Gait Goal Independent,Front Wheel Walker Gait Distance 150 feet Other Goals up/down 13 steps with rail and CG assist to enter the house Days to Meet Goals 2 Frequency of Treatment Frequency Of Treatment Twice a Day Treatment Plan Physical Therapy Treatment Plan Bed Mobility Training,Transfer Training,Gait Training, Therapeutic Exercise,Balance Retraining,Post Op Education, Discharge Planning,Hot or Cold Pack,Neuromuscular Re-ed Other Recommendations and Next Treatment spine precaution education Focus Stair training before discharge home Precautions Lumbar Precautions Log Roll,No Twisting,Limit Bending,Lifting Restriction of 10 lbs,Gait Belt above Incisional Area Other Precautions Pt had dural repair during surgery. She is to stay flat until 7AM 10/18/22. Progress activity as tolerated as long as no headache when up. Limited left shoulder ROM after total shoulder and revision Weight Bearing Status Weight Bearing Status Weight Bear as Tolerated Recommendations To Nursing Amount of Assist Needed 2 Person Assist Discharge Recommendations PT Discharge Recommendations Home with 24/7 Assist Available,Home Health,Home vs SNF Other Discharge Recommendations Daughter and to assist her Pt would need BLS to get up 13 steps at home. Transportation Needs at Discharge Private Vehicle
--- NOTE | 2022-10-19 14:40 | OT.IP.TRT ---
Current Diagnoses Spinal stenosis, lumbar region with neurogenic claudication (10/17/22) Other intervertebral disc displacement, lumbar region (10/17/22) Surgery Performed Operation Date: 10/17/22 12:45 Actual Procedures p L3-4 TLIF, L4-5 Right Hemilaminectomy - Padmini Daniel MD Occupational Therapy Treatment Note M2 OT-IP Current Condition Start: 10/18/22 13:48 Freq: Status: Active Protocol: Document 10/18/22 13:07 [facility] (Rec: 10/18/22 14:17 [facility] [id number]) Occupational Therapy Current Condition Current Condition Evaluation Date 10/18/22 Treatment Diagnosis S/P L3-4, L4-5 TLIF Diagnosis Onset Date 10/17/22 Post Operative Precautions Lumbar Precautions Log Roll,No Twisting,Limit Bending,Lifting Restriction of 10 lbs,Gait Belt above Incisional Area M3 OT- IP Subjective and Pain Start: 10/18/22 13:48 Freq: Status: Active Protocol: Document 10/19/22 14:49 [facility] (Rec: 10/19/22 14:56 [facility] [id number]) OT- Subjective Occupational Therapy Visit Type Type Treatment Note Visit Start Time 14:38 Visit Stop Time 14:48 Total Visit Minutes 10 Occupational Therapy Visit Comments Patient Comments Pt is lots of pain and not able to come to stand just eariler with [employer]. Spoke to nursing and pt's daughter regarding her right hip pain and also pt had a fall in August on her right knee and may have radiating pain. Pt also has been off her RA medications for 3 weeks. Brought up that maybe pt would be able to benefit from steriods. Per nursing to bring up with PA later when they come and check on the pt later . Patient/Caregiver Goals Pt's family to take her house even if pt needs to take BLS home and to have 24/7 assist to help here. OT Pain Assessment Pain When Pain Assessed At Rest Pain Present Pain Present Pain Reported M4 OT- IP ADL's Start: 10/18/22 13:48 Freq: Status: Active Protocol: Document 10/18/22 13:07 [facility] (Rec: 10/18/22 14:17 [facility] [id number]) OT [id number] Comments OT Self-Feeding Comments Not at meal time OT ADL-Grooming Comments OT Grooming Comments Not performed. OT ADL-Oral Care Comments Oral Care Comments Not performed. OT ADL-Dressing General Eval Lower Body Dressing Ability Maximum Assistance Areas Needing Assistance Underpants/Brief,Socks Assistive Devices Dressing Assistive Devices [employer] Services Assistant Comments OT Dressing Comments Pt also needing assist to help thread her right foot through the brief with use of the entry table operator. Pt needing assist to help pull up her brief up over her hips. OT ADL-Toileting General Evaluation Toileting Ability Moderate Assistance,Maximum Assistance Areas Needing Assistance Manage Clothing Comments OT Toileting Comments Pt able to wipe from behind and able to follow her back precautions. Pt needing assist to do brief management needs. OT ADL-Bathing Comments OT Bathing Comments Not performed. M5 OT- IP IADL's Start: 10/18/22 13:48 Freq: Status: Active Protocol: Document 10/18/22 13:07 [facility] (Rec: 10/18/22 14:17 [facility] [id number]) OT-Instrumental Activities of Daily Living Deficits IADL Deficits Identified Deficits Home Safety Awareness Awareness of Need for Assistance at Home Good Awareness Home Safety Comments Pt able to help pt physically. Pt states her has just been diagnosed with dementia. M6 OT- IP Functional Cognition Start: 10/18/22 13:48 Freq: Status: Active Protocol: Document 10/18/22 13:07 [facility] (Rec: 10/18/22 14:17 [facility] [id number]) Cognitive Factors Limiting Selfcare Function Cognitive Ability Level of Alertness Alert Patient Orientation Name,Place,Situation Attention Span Ability Capable of Focused Attention, Capable of Sustained Attention Ability to Follow Commands Able to Follow One Step Commands Cognitive Comments Cognitive Assessment Comments Pt able to follow commands for back precautions for ADL and mobility needs. OT- Vision and Hearing OT- Hearing Assessment OT- Hearing Assessment WFL OT- Vision Assessment Visual Acuity Glasses All The Time M7 OT- IP Mobility and Balance Start: 10/18/22 13:48 Freq: Status: Active Protocol: Document 10/18/22 13:07 [facility] (Rec: 10/18/22 14:17 [facility] [id number]) OT- Bed Mobility Assessment Supine to Sit Supine to Sit Assist Minimal Assistance,Bedrails Sit to Supine Sit to Supine Assist Minimal Assistance,Moderate Assistance Scooting Scooting to Edge of Bed Moderate Assistance OT-Transfer Assessment Sit to and From Stand Sit to and from Stand Moderate Assistance Transfers Transfer Ability Minimal Assistance Technique Transfer Destination Bed,Chair,Toilet Transfer Technique Stand Step Pivot Devices Transfer Assistive Devices Gait Belt,Front Wheeled Walker Comments Mobility Comments MOD to stand from lower surfaces to FWW. LILLIAN with Fww and heavy use of BUE on the FWW so able to move her RLE, as pt having pain with her RLE . OT- Balance Assessment Sitting Balance and Reactions Static Sitting Balance Ability Good Dynamic Sitting Balance Ability Good Standing Balance and Reactions Static Standing Balance Ability Fair Dynamic Standing Balance Ability Fair M9 OT- IP Assessment and Plan Start: 10/18/22 13:48 Freq: Status: Active Protocol: Document 10/19/22 14:49 [facility] (Rec: 10/19/22 14:56 [facility] [id number]) OT Summary Assessment and Plan Potential Rehabilitation Potential Good Analytic Complexity at Evaluation Low Summary OT Impairments Pain,Strength,Balance, Functional Mobility,Dressing, Toileting,Bathing,Toilet Transfers,Shower Transfers, Activity Tolerance Progress Towards Goals Slow Progress due to Pain,Slow Progress due to Medical Issues,Slow Progress due to Activity Tolerance Assessment Summary Pt having lots of pain and difficulty to move her right hip and come to stand. Pt has had a recent fall to her right knee and this past month increased pain with her right hip. Pt's daughter states has been off her RA meds for 3 weeks as well. Nurse and pt's daughter to talk to PA regarding having possible scan to her hip and also possibility of getting steriods . Pt to go home with 24/7 assist and home health and BLS into the house due to 13 steps or skilled rehab. Goals Grooming Goal Independent Dressing Goal Minimal Assistance Toileting Goal Independent Bathing Goal Standby Assistance Toilet Transfer Goal Independent Shower Transfer Goal Standby Assistance Days to Meet Goals 20 Frequency of Treatment Frequency Of Treatment Once a Day Treatment Plan OT Treatment Plan ADL Training,Functional Mobility,Patient/Family Education,Discharge Planning Other Treatment Recommendations and Next Practice use of LB dressing Treatment Focus equipment, caregiver training Discharge Recommendations OT Discharge Recommendations Home with 24/7 Assist Available,Home Health,SNF Rehab,Home vs SNF Transportation Needs at Discharge Stretcher/Ambulance
[2022-10-19] MEDS: OXYCODONE IR 10 MG TABLET PO ×3 (14:46→21:11)
[2022-10-19] MEDS: hydrOXYzine pamoate 25 MG CAPSULE PO (16:04)
--- NOTE | 2022-10-19 16:19 | DI.RAD.S_ITS ---
PROCEDURE: XR HIP W PEL IF DONE RT 2V INDICATIONS: right hip pain TECHNIQUE: AP pelvis with lateral view of the right hip. COMPARISON: None. FINDINGS: Bones: No fractures or dislocations. Pelvic ring appears intact. Mild degenerative changes are seen in the hips bilaterally. No suspicious bony lesions. Postsurgical changes are seen in the lumbar spine. Degenerative changes are also noted in the spine. Soft tissues: The visualized bowel gas pattern is normal. No suspicious soft tissue calcifications. IMPRESSION: Mild bilateral hip osteoarthrosis. No acute osseous abnormality. If the symptoms persist, consider cross sectional imaging such as MRI or CT for further assessment. Approved by: Clem Broderick M.D. on 10/19/2022 at 18:12
--- NOTE | 2022-10-19 16:53 | CM.DPC ---
DCP Continued: SENIOR ECOLOGIST reviewed EMR. Per PT, patient in significant pain and unable to complete stairs. Per PA note, home either today or tomorrow. Carmela at [facility] reports they could take her but have concerns about her infusions. SENIOR ECOLOGIST entered room and introduced self and role. Patient was sitting in chair and accompanied by and daughter. Patient family adamant about not wanting to go to SNF. Patient family understands they will likely get a bill for BLS transport home. SENIOR ECOLOGIST told family that if when they get home in two weeks if they believe patient cannot leave her house for OP PT, they can request HH through her PCP. SENIOR ECOLOGIST reached out to PA to inquire about if d/c home today. He reported he would be up this afternoon to see. PA reported to this SENIOR ECOLOGIST that due to patient's hip pain, is considering an x-ray tomorrow. No d/c today. Plan: likely d/c home tomorrow afternoon via BLS. CM team will arrange tomorrow. No additional needs at this time. AIDA Gee
[2022-10-19] MEDS: LEFLUNOMIDE 20 MG 20 EACH PO (20:28)
[2022-10-19] MEDS: SENNOSIDES 8.6 MG TABLET 17.2 MG PO (20:29)
[2022-10-19] MEDS: PANTOPRAZOLE DR 40 MG TABLET PO (20:29)
[2022-10-19] MEDS: CYCLOBENZAPRINE 10 MG TABLET 5 MG PO (21:17)
[2022-10-19] MEDS: HYDROMORPHONE 0.5 MG INJ IV (22:38)
[2022-10-20] MEDS: OXYCODONE IR 10 MG TABLET PO ×2 (00:48→05:53)
[2022-10-20] MEDS: hydrOXYzine pamoate 25 MG CAPSULE PO ×2 (00:48→08:43)
[2022-10-20 07:00] VITALS: O2SAT 97
--- NOTE | 2022-10-20 07:22 | P.DS_ITS ---
History of Present Illness History of Present Illness Date Patient Seen: 10/20/22 Time Patient Seen: 07:23 Chief complaint: Translaminar Interbody Fusion/Laminotomy 10/17 Narrative: Operative Date/Time/Diagnoses Date of procedure: 10/17/22 Time of procedure: 13:30 Pre-op diagnosis: 1. L3-4, L4-5 spinal stenosis 2. Lumbar radiculopathy 3. Lumbar epidural mass Post-op diagnosis: same Procedure & Clinicians Procedure: 1. L3-4 Postero-lateral and posterior interbody fusion 2. L3-4 interbody cage placement. 3. L3-4 decompressive laminectomy with bilateral facetecomies 4. L3-4 Posterior non-segmental instrumentation 5. L4-5 right hemilaminectomy 6. [place] of bone marrow from iliac crest 7. Utilization of microsurgical technique and operating microscope Same procedure as scheduled: Yes Indications: Patient has been having chronic back pain and worsening lumbar radiculopathy. Patient failed multiple conservative management with worsening pain weakness and numbness in her lower extremity.? Patient has been having difficulty performing activity of daily living.? After discussing risks benefits of treatment options, patient elected proceed with surgery. Surgeon: Padmini Daniel Restaurant Manager: Alyssa Beck Click Yes if Unassisted: No Anesthesia Type: General Operative Notes Closure Type: primary Specimen(s): none sent Prosthetic devices, grafts, tissues, transplants, or devices: Globus CREO MIS screws, Rise cage Estimated Blood Loss (mL): 200 Blood products transfused: none Discharge Providers Provider Date of admission: 10/17/22 11:04 Discharge Date: 10/20/22 Primary care physician: Cleveland Cardenas MD Consults: 10/17/22 17:33 Consult to Occupational Therapy Evaluate & Treat Comment: Physician Instructions: Evaluate and treat Consult to Physical Therapy Evaluate & Treat Comment: Physician Instructions: Evaluate and Treat Discharge provider: Alyssa Beck PA-C Summary Hospital Course Discharge Diagnosis: L3-4, L4-5 spinal stenosis, Lumbar radiculopathy; s/p lumbar fusion Hospital Course: Ms Robles's hospital course was remarkable for right hip and knee pain following surgery. An xray of her hip was ordered on 10/19/2022; this was remarkable only for osteoarthritis, no fracture seen. She was evaluated by PT during her stay and felt to be safe for discharge home w/ family, but she does need BLS to get her into her house as she has 13 steps leading up to her home. On the morning of POD# 3, she was feeling well and wanted to go home. She was eating and voiding without difficulty. She continued to c/o RLE pain. Exam Vital Signs (past 8 hours): Fraction of Inspired Oxygen 28 SaO2/FiO2 Ratio 342 Oxygen Delivery Method Room Air Oxygen Flow Rate 0 Narrative Exam Narrative: 4/5 strength in hamstrings; 3/5 hip flexors, quadriceps; 5/5 DF, PF, EHL on right. 5/5 throughout on LLE. Sensation to light touch intact throughout BLE. 1+ pitting edema in bilateral lower legs; calves compressible, without palpable cords or masses. Dressing w/ scant bloody drainage, intact. 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 Lumbar radiculopathy Measles (~1960) Mumps (~1959) Occipital neuralgia of left side Osteoarthritis (2008) Osteopenia Psoriasis Rheumatoid arthritis (05/2008) Spondylosis without myelopathy or radiculopathy, cervical region Surgical History Anesthesia History of back surgery (12/06/13) History of bladder surgery (12/2013) History of knee replacement (12/14/10) 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) History of surgery (11/20/19) History of surgery on arm (02/21/13) History of tonsillectomy (1961) Hx of foot surgery (2019) Hx of foot surgery (2020) Hx of hemorrhoidectomy (08/28/19) Hx of shoulder surgery (04/22/15) S/P epidural steroid injection (12/03/13) Status post hysterectomy (04/2000) Status post total shoulder arthroplasty Social History marital status: household members: spouse occupational status: previously employed Smoking Status: Never smoker alcohol intake: current substance use type: does not use Discharge Assessment & Plan Assessment and Plan Assessment: L3-4, L4-5 spinal stenosis, Lumbar radiculopathy; s/p lumbar fusion Plan of Treatment: Discharge home. BLS to transport pt into house. Will order steroids to start in hospital w/ methylprednisolone taper at discharge to help w/ RLE pain. Pt received rx for pain meds at preop office appt. F/u in 2 weeks as scheduled. Discharge Plan Discharge Plan Patient Disposition: Home Discharge orders & Medications Prescriptions: New methylprednisolone [Methylpred DP] 4 mg tablets,dose pack 4 mg PO DAILY Qty: 21 0RF Continued multivitamin Capsule 1 cap PO DAILY Qty: 0 ascorbic acid (vitamin C) [Vitamin C] 1,000 mg Tablet 1,000 mg PO DAILY Qty: 0 cholecalciferol (vitamin D3) [Vitamin D3] 125 mcg (5,000 unit) Tablet 125 mcg PO Q OTHER DAY Qty: 0 hydroxychloroquine [Plaquenil] 200 MG tablet 200 mg PO QDAY Qty: 0 leflunomide [Arava] 20 mg tablet 20 mg PO BID Qty: 0 Prolia 60 mg/mL syringe 60 mg SUBCUT [id number] Patient Comments: in July, unsure of day Rx Instructions: for bone density Kevzara 200 mg/1.14 mL pen injector 200 mg SUBCUT Q2W amlodipine 10 mg tablet 10 mg PO DAILY Qty: 90 2RF labetalol 100 mg tablet 100 mg PO BID Qty: 180 2RF pregabalin [Lyrica] 75 mg capsule 75 mg PO BID Qty: 180 2RF diazepam [Valium] 10 mg tablet 10 mg PO .COMPLEX MDD 3 tabs PRN (Reason: 1-2 prior to MRI and for possible steroid flare) Qty: 10 0RF Rx Instructions: 10 mg PO PRN; cyclobenzaprine 5 mg tablet 5 mg PO Q4H PRN (Reason: muscle spasm) omeprazole 40 mg capsule,delayed release(DR/EC) 40 mg PO BEDTIME lisinopril 20 mg tablet 20 mg PO DAILY hydrocodone-acetaminophen 5-325 mg tablet 1 tab PO Q6H PRN (Reason: pain) Qty: 20 0RF triamcinolone acetonide [Nasacort] 55 mcg Aerosol,[place] 2 spray INTRANASAL BID Rx Instructions: administer into each nostril diclofenac sodium 1 % gel 2 gram TOP QID PRN (Reason: Pain) ipratropium bromide 21 mcg (0.03 %) spray,non-aerosol 2 spray intranasal DAILY PRN (Reason: Allergy Symptoms) tramadol 50 mg tablet 50 mg PO TID PRN (Reason: pain) Qty: 42 0RF Discontinued ibuprofen 600 mg tablet 600 mg PO BID PRN (Reason: Pain) Hold Instructions: Home Medication placed on hold at Doctor's office Follow up/Referrals: Padmini Daniel MD [Physician] - As previously scheduled (Follow up with Dr Daniel on 10/27/2022 @ 1:10 pm at [facility] office in [place].) Cleveland Cardenas MD [Primary Care Provider] - Diet/Activity/Treatments Diet: Diet as Tolerated Activity: No deep bending or twisting at the waist. No lifting more than 10 pounds. Cold/Heat Therapy: Heating pad to low back as needed for pain. Skin/Wound/Dressing Care Report to your healthcare provider any signs of infection, such as:: chills, fever, night sweats, unusual drainage and unusual redness Dressing: May shower. Keep dressing as dry as possible. If dressing becomes wet or dirty, may remove and replace with clean, dry gauze. No bathing or otherwise soaking incisions. Do not apply any creams, lotions, or ointments to incisions. Visit Report/Discharge Packet Instructions: DI for Prescription Opioid Use, DI for Transforaminal Lumbar Interbody Fusion Stand Alone Forms: Patient Portal/API, Stroke Signs & Symptoms, Surgery Discharge Discharge Data Primary Care Provider: Cleveland Cardenas Quality VTE Deep Vein Thrombosis/Pulmonary Embolism Present on Admission: No
--- NOTE | 2022-10-20 08:13 | PT.IPTN ---
Current Diagnoses Spinal stenosis, lumbar region with neurogenic claudication (10/17/22) Other intervertebral disc displacement, lumbar region (10/17/22) Surgery Performed Operation Date: 10/17/22 12:45 Actual Procedures p L3-4 TLIF, L4-5 Right Hemilaminectomy - Padmini Daniel MD Physical Therapy Treatment Note M2 PT-IP Current Condition Start: 10/18/22 12:31 Freq: NEEDED Status: Active Protocol: Document 10/18/22 11:24 DLM (Rec: 10/18/22 13:24 DLM [id number]) Physical Therapy Current Condition Current Condition Evaluation Date 10/18/22 Treatment Diagnosis L3-4 TLIF, L4-5 hemilaminectomy, dural repair, impaired mobility/gait Onset Date 10/17/22 M3 PT-IP Subjective Start: 10/18/22 12:31 Freq: NEEDED Status: Active Protocol: Document 10/20/22 08:31 TS (Rec: 10/20/22 08:48 TS [id number]) Subjective Physical Therapy Visit Type Type Treatment Note Visit Start Time 08:13 Visit Stop Time 08:30 Total Visit Minutes 17 Number of COMMERCIAL DIRECTOR Visits 4 Physical Therapy Visit Comments Patient Comments Pt found resting in chair, reports sleeping in chair last night and continues to have pain in RLE, agreeable to PT. Patient Goals Discharge home with family help Therapy Pain Assessment Pain When Pain Assessed At Rest Pain Present Pain Present Pain Reported M4 PT-IP Mobility and Gait Start: 10/18/22 12:31 Freq: NEEDED Status: Active Protocol: Document 10/20/22 08:31 TS (Rec: 10/20/22 08:48 TS [id number]) PT-Transfer Assessment Sit to and From Stand Sit to and from Stand Minimal Assistance,1 Person Assistance,Use of Upper Extremities Equipment Transfer Assistive Device Gait Belt,Front Wheeled Walker Comments Mobility Comments Sit to stand from chair Sidney with FWW, cues provided for BUE support pushing from arms of chair to come into standing . She ambulated ~8' CGA with slow antalgic step to gait, pt c/o increasing pain with wbering on RLE, requesting back to chair. Stand to sit in chair Sidney for eccentric control, cues provided for reaching back to arms of chair to assist lowering into chair . Pt was left in chair, all needs met, RN notified. Gait Assessment Gait Gait Assistance Required: Contact Guard Assist Distance (Feet) 8 Assistive Devices Assistive Device Gait Belt,Front Wheeled Walker Gait Deviations General Gait Pattern Antalgic,Decreased Stride Length,Decreased Feet Clearance,Step-to Gait Factors Limiting Gait Function Factors Limiting Gait Function Decreased Activity Tolerance, Decreased Strength,Limited Range of Motion,Pain,Poor Balance Comments Gait Comments See mobility comments. Stair Climbing Assessment Comments Stair Climbing Comments Unable to at this time. PT-Balance Assessment Sitting Balance and Reactions Static Sitting Balance Ability Good Dynamic Sitting Balance Ability Good Standing Balance and Reactions Static Standing Balance Ability Fair Dynamic Standing Balance Ability Fair Device Used fWW M5 PT-IP Objective Assessments Start: 10/18/22 12:31 Freq: NEEDED Status: Active Protocol: Document 10/18/22 11:24 DLM (Rec: 10/18/22 13:24 [facility] [id number]) Orientation Orientation/Cognition Level of Alertness Alert Orientation Name,Age,Birthday,Month,Date, Year,Day of Week,Place, Situation Language Function Ability No Deficits Noted Safety Awareness Understands Safety Issues Memory Description No Deficits Noted Gross Range of Motion Upper Extremity ROM Assessment Left Impaired Impairments shoulde elevation to 85 degrees s/p total shoulder and revision Lower Extremity ROM Assessment Within Functional Limits Impairments pain in right LE during mobility Strength Upper Extremity Strength Assessment Left Impaired Shoulder flexion 3+/5 Elbow 5/5 Lower Extremity Strength Assessment Right Impaired Hip flexion 2+/5 with pain Knee ext 2+/5, flex 4+/5 Ankle DF 5/5 Comments Strength Comments she reports having more pain in right LE than in her back but only in the thigh area Coordination Assessment Gross Coordination Gross Coordination WNL Sensation Assessment Sensation Gross Sensation WNL Comments Sensation Comments she reports tender feet and needs shoes to walk very far Muscle Tone Muscle Tone WNL Yes Other Assessments Other Other Assessments she reports lumpy areas in right thigh that she is related to her back and right LE pain, feels better when she rubs on the area M6 PT-IP Treatment Start: 10/18/22 12:31 Freq: NEEDED Status: Active Protocol: Document 10/20/22 08:31 TS (Rec: 10/20/22 08:48 TS [id number]) Physical Therapy Treatment Education Education Provided Precautions,Safety M7 PT-IP Assessment and Plan Start: 10/18/22 12:31 Freq: NEEDED Status: Active Protocol: Document 10/20/22 08:31 TS (Rec: 10/20/22 08:48 TS [id number]) PT Summary Assessment and Plan Potential Rehabilitation Potential Good Summary Impairments Pain,ROM,Strength,Balance,Bed Mobility,Transfers,Gait, Activity Tolerance Progress Towards Goals Slow Progress due to Pain Assessment Summary Ernestina continues to make slow progress with her mobility due to continued pain in RLE. She toelrated sit to stand this morning unlike yesterday afternoon, continues to c/o increasing pain with weight bearing on RLE. She ambulated ~8'CGA, due to pain could not progress further with gait and requested to rest in chair. PT continues to recommend SNF vs 12/09 assist at home with HH . Pt would benefit from continued daily skilled therapy. Goals Bed Mobility Goal Independent Transfer Goal Independent,Front Wheeled Walker Gait Goal Independent,Front Wheel Walker Gait Distance 150 feet Other Goals up/down 13 steps with rail and CG assist to enter the house Days to Meet Goals 2 Frequency of Treatment Frequency Of Treatment Twice a Day Treatment Plan Physical Therapy Treatment Plan Bed Mobility Training,Transfer Training,Gait Training, Therapeutic Exercise,Balance Retraining,Post Op Education, Discharge Planning,Hot or Cold Pack,Neuromuscular Re-ed Other Recommendations and Next Treatment spine precaution education Focus Stair training before discharge home Precautions Lumbar Precautions Log Roll,No Twisting,Limit Bending,Lifting Restriction of 10 lbs,Gait Belt above Incisional Area Other Precautions Pt had dural repair during surgery. She is to stay flat until 7AM 10/18/22. Progress activity as tolerated as long as no headache when up. Limited left shoulder ROM after total shoulder and revision Weight Bearing Status Weight Bearing Status Weight Bear as Tolerated Recommendations To Nursing Amount of Assist Needed 1 Person Assist Discharge Recommendations PT Discharge Recommendations Home with 12/09 Assist Available,Home Health,Home vs SNF Other Discharge Recommendations Daughter and to assist her Pt would need BLS to get up 13 steps at home. Transportation Needs at Discharge Wheelchair/Cabulance,Stretcher /Ambulance
[2022-10-20 08:44] VITALS: BP 116/66; PULSE 103; RESP 18; TEMP 36.8; O2SAT 94
[2022-10-20] MEDS: HYDROCODONE/ACET 5/325 TABLET 1 TAB PO (08:44)
[2022-10-20] MEDS: PREGABALIN 75 MG CAPSULE PO (08:45)
[2022-10-20] MEDS: MULTIVITAMIN 1 TABLET 1 TAB PO (08:45)
[2022-10-20] MEDS: DOCUSATE 100 MG CAPSULE PO (08:45)
[2022-10-20] MEDS: AMLODIPINE 5 MG TABLET 10 MG PO (08:45)
[2022-10-20 08:46] VITALS: BP 106/66
[2022-10-20] MEDS: lisinopriL 20 MG TABLET PO (08:46)
[2022-10-20] MEDS: LABETALOL 100 MG TABLET PO (08:46)
[2022-10-20] MEDS: ASCORBIC ACID 500 MG TABLET 1000 MG PO (08:46)
[2022-10-20] MEDS: HYDROXYCHLOROQUINE 200 MG TABLET PO (08:46)
[2022-10-20] MEDS: DEXAMETHASONE 4 MG/ML VIAL IV (08:54)
[2022-10-20] MEDS: LEFLUNOMIDE 20 MG 20 EACH PO (08:55)
[2022-10-20 10:18] VITALS: BP 110/68
--- NOTE | 2022-10-20 12:40 | PC.NURSE ---
Pt sitting in chair. Med for discomfort w/some relief. Dsg to back w/shadow drainage noted. Pt D/C orders placed, BLS arranged for transportation home HL D/C intact. BLS here for P/U Pt escorted by BLS staff to waiting rig D/C in stable post op status
--- NOTE | 2022-10-20 15:32 | CM.DPC ---
DCP Continued: ADMITTING REPRESENTATIVE reviewed EMR. ADMITTING REPRESENTATIVE contacted RUBENS Magdaleno about signing form for medical necessity to transport via BLS. CARSON Certified Hand Therapist Deborah agreed to contact [facility] to transport home. Scheduled for 1230. Updated DISPLAY ASSOCIATE and nursing staff. ADMITTING REPRESENTATIVE entered room and introduced self and role. Patient reported being on board for d/c home with BLS at 1230. Asked about HH. ADMITTING REPRESENTATIVE contacted ortho PA to inquire about HH services. Ortho PA reported María verbally confirmed to be okay with HH services. ADMITTING REPRESENTATIVE put in verbal order to consult to HH for PT/OT. ADMITTING REPRESENTATIVE spoke with Karan at [facility]. Can accept and will contact family to start date. Family appreciative. ADMITTING REPRESENTATIVE completed face to face. CARSON Cabrera scanned in. BLS transport form given to nurse Woodruff. Plan: dc home with family/[facility]. Transport via BLS at 1230pm. CM team will continue to follow as needed. AIDA Gee
== END 2022-10-20 12:54 | disposition home health service (06) | DRG 454 ==
PROVIDERS: Admitting Provider Orthopaedic Surgery Orthopaedic Surgery of the Spine; PCP Family Medicine; Referring Provider Orthopaedic Surgery Orthopaedic Surgery of the Spine; Visit Provider Orthopaedic Surgery Orthopaedic Surgery of the Spine
PROC: 0SG00AJ Fusion of Lumbar Vertebral Joint with Interbody Fusion Device, Posterior Approach, Anterior Column, Open Approach (ICD-10-PCS; principal; 2022-10-17 12:45)
DX: M48.062 Spinal stenosis, lumbar region with neurogenic claudication (principal); G95.89 Other specified diseases of spinal cord; G96.11 Dural tear; M51.26 Other intervertebral disc displacement, lumbar region; M54.16 Radiculopathy, lumbar region; M16.11 Unilateral primary osteoarthritis, right hip; K21.9 Gastro-esophageal reflux disease without esophagitis; I10 Essential (primary) hypertension
CPT/HCPCS: 72100; 73502; 76000; 87070; 87075; 87205; 94760; 94762; 97110; 97116; 97162; 97165; 97530; 97535; C9290; J0171; J0736; J1100; J1170; J2060; J2405; J2704; J3010

== ENCOUNTER → 2023-02-16 | Outpatient (CLI) | payer MEDICARE, OTHER, SELFPAY ==
[2022-10-17 17:33] VITALS: BMI 28.9
--- NOTE | 2023-02-16 10:58 | DI.MG.S_ITS ---
BILATERAL DIGITAL SCREENING MAMMOGRAM 3D/2D WITH CAD: 02/16/2023 CLINICAL: Routine screening. Comparison is made to exams dated: 02/15/2022 mammogram, 10/30/2020 mammogram, and 09/28/2019 mammogram - [facility]. Both breasts are heterogeneously dense, which may obscure small masses (category c / 51-75% glandular tissue). Current study was also evaluated with a Computer Aided Detection (CAD) system. No significant masses, calcifications, or other findings are seen in either breast. There has been no significant interval change. IMPRESSION: NEGATIVE There is no mammographic evidence of malignancy. A 1 year screening mammogram is recommended. Based on the Tyrer Cuzick model (a risk assessment model) the patient's lifetime risk is 8.5% and her 10 year risk is 5.0%. According to the ACR, ACS, and NCCN guidelines, an annual breast MRI exam along with mammogram is recommended if the patient's lifetime risk is 20% or greater. This exam was interpreted at Station ID: [id number]. NOTE: For mammograms, a report in lay terms will be sent to the patient. Approximately 15% of breast malignancies will not be visualized mammographically. In the management of a palpable breast mass, a negative mammogram must not discourage biopsy of a clinically suspicious lesion. Electronically Signed By: Alfred lora/sera:02/16/2023 16:52:25 letter sent: Normal Exam ACR BI-RADS Category 1: Negative [id number]
== END ==
PROVIDERS: PCP Family Medicine; Referring Provider Family Medicine; Visit Provider Family Medicine
DX: Z12.31 Encounter for screening mammogram for malignant neoplasm of breast (principal)
CPT/HCPCS: 77063; 77067

== ENCOUNTER → 2023-07-07 13:37 | Outpatient (CLI) | payer MEDICARE, OTHER, SELFPAY ==
[2022-10-17 17:33] VITALS: BMI 28.9
--- NOTE | 2023-07-07 13:39 | DI.MRI.S_ITS ---
PROCEDURE: MR HIP LT WO CON INDICATIONS: Unilateral primary osteoarthritis, left hip TECHNIQUE: Noncontrast coronal T1 spin echo and STIR through the bony pelvis. Coronal and axial T2 fast spin echo with fat saturation, sagittal T1 spin echo, and oblique axial T2 fast spin echo with fat saturation through the hip. COMPARISON: None. FINDINGS: Image quality: Excellent. Bones and joints: Diffusely heterogeneous marrow signal throughout bony pelvis is seen likely represent hematopoietic marrow. Asymmetric moderate left hip joint osteoarthritic changes are seen with joint space narrowing, subchondral sclerosis and marginal osteophyte formation. Subcortical cystic changes also noted involving left acetabular roof. No fracture or dislocation. No avascular necrosis of the femoral heads. Degenerative disc disease in visualized lower lumbar spine is seen. Tendons and ligaments: Low to moderate grade partial-thickness tear involving distal left gluteus medius tendon at its insertion on greater trochanter is seen extending to musculotendinous junction. Distal left gluteus minimus tendinosis and low-grade partial-thickness tear is also seen. Fluid is noted within trochanteric bursa concerning for low-grade bursitis. The nearby proximal iliotibial band also appears intact. The iliopsoas tendon appears intact, without adjacent bursal fluid collections or evidence for impingement syndrome. The origin of the hamstring tendon is intact. Labrum and cartilage: Subtle fraying of superior anterior labrum is seen concerning for subtle superior anterior left hip labral tear. Thinning of articulating cartilage is also seen. Soft tissues: Visualized muscles demonstrate normal bulk and internal signal. Quadratus femoris muscle demonstrates no internal edema to suggest ischiofemoral impingement. The proximal sciatic neurovascular bundle appears normal adjacent to the hamstring tendons. No free pelvic fluid. Bladder wall thickness is normal. Genitourinary structures and bowel loops appear normal where visualized. IMPRESSION: 1. Asymmetric moderate left hip joint osteoarthritis. No pelvic or hip fracture. No evidence of avascular necrosis. Heterogeneous marrow signal likely represent hematopoietic marrow. Degenerative disc disease in lower lumbar spine. 2. Suggestion of subtle superior anterior left hip labral tear. 3. Low to moderate grade partial-thickness tear involving distal left gluteus medius tendon extending to musculotendinous junction. Low-grade partial-thickness tear involving distal left gluteus minimus tendon. No other muscle or tendon signal abnormality. Dictated by: Alfa House M.D. on 07/07/2023 at 15:31 Approved by: Alfa House M.D. on 07/07/2023 at 15:41
== END ==
PROVIDERS: PCP Family Medicine; Referring Provider Orthopaedic Surgery Adult Reconstructive Orthopaedic Surgery; Visit Provider Orthopaedic Surgery Adult Reconstructive Orthopaedic Surgery
DX: M16.12 Unilateral primary osteoarthritis, left hip (principal); S76.012A Strain of muscle, fascia and tendon of left hip, initial encounter
CPT/HCPCS: 73721

== ENCOUNTER → 2023-07-31 11:23 | Outpatient (CLI) | payer MEDICARE, OTHER, SELFPAY ==
[2022-10-17 17:33] VITALS: BMI 28.9
--- NOTE | 2023-07-31 11:25 | DI.RAD.S_ITS ---
PROCEDURE: XR DEXA AXIAL SKELETON INDICATIONS: Age-related osteoporosis COMPARISON: [facility], CR, XR DEXA AXIAL SKELETON, 11/06/2019, 10:42. FINDINGS: Left Hip: Bone mineral density 0.904 g/cm2, T score -0.3. Left Femoral Neck: Bone mineral density 0.694 g/cm2, T score -1.4. Right Hip: Bone mineral density 0.932 g/cm2, T score -0.1. Right Femoral Neck: Bone mineral density 0.771 g/cm2, T score -0.7. Left Forearm: Bone mineral density 0.774 g/cm2, T score 1.3. Fracture Risk Calculation (when applicable): 10-year fracture risk of a major osteoporotic fracture 19% and of a hip fracture 3.3%. (T score greater or equal to -1.0 to: NORMAL) (T score from -1.1 to -2.4: OSTEOPENIA) (T score less than or equal to -2.5: OSTEOPOROSIS) IMPRESSION: Osteopenia. Follow-up guidelines as follows: Osteoporosis: Consider a repeat DEXA and Vertebral Fracture Assessment (VFA) exam in 2 years or sooner if medically necessary, to reassess this patient's status. Osteopenia: Consider a repeat DEXA in 2-3 years to reassess this patient's status, or if there is a new clinical indication. Normal: Consider a repeat DEXA in 5 years or sooner, or if there is a new clinical indication. All treatment decisions require clinical judgment and consideration of individual patient factors, including patient preferences, comorbidities, previous drug use, risk factors not captured in the FRAX model (e.g., frailty, falls, vitamin D deficiency, increased bone turnover, interval significant decline in bone density ) and possible under- or over-estimation of fracture risk by FRAX. In addition, the NOF Guide recommends that FDA-approved medical therapies be considered in postmenopausal women and men age >= 50 years with a: * Hip or vertebral (clinical or morphometric) fracture * T-score of <=-2.5 at the spine or hip * Ten-year fracture probability by FRAX of >= 3% for hip fracture or >=20% for major osteoporotic fracture. People with diagnosed cases of osteoporosis or at high risk for fracture should have regular bone mineral density tests. For patients eligible for Medicare, routine testing is allowed once every 2 years. The testing frequency can be increased to one year for patients who have rapidly progressing disease, those who are receiving or discontinuing medical therapy to restore bone mass, or have additional risk factors. Dictated by: Alfred Jenkins M.D. on 07/31/2023 at 18:28 Approved by: Alfred Jenkins M.D. on 07/31/2023 at 18:29
== END ==
LOC: RAD 11:24
PROVIDERS: PCP Family Medicine; Referring Provider Internal Medicine Rheumatology; Visit Provider Internal Medicine Rheumatology
DX: M81.0 Age-related osteoporosis without current pathological fracture (principal)
CPT/HCPCS: 77080; 77081

== ENCOUNTER → 2023-08-11 10:51 | Outpatient (CLI) | payer MEDICARE, OTHER, SELFPAY ==
[2022-10-17 17:33] VITALS: BMI 28.9
--- NOTE | 2023-08-11 10:54 | DI.CT.S_ITS ---
PROCEDURE: CT LUMBAR SPINE WO CON INDICATIONS: Spinal stenosis, lumbar region TECHNIQUE: Noncontrast 0.8 mm thick sections acquired from the T12 level to the sacrum. Sagittal and coronal reformats were constructed. Oblique axial images were also reformatted through the disc levels. For radiation dose reduction, the following was used: automated exposure control. COMPARISON: [facility], CR, XR LUMBAR SPINE 2 OR 3 VIEWS, 08/01/2023, 11:27. [facility], MR, MR LUMBAR SPINE WO CON, 08/28/2022, 9:29. FINDINGS: Image quality: The visualized growth plates have an unremarkable appearance. Bones: No acute vertebral body compression fractures. No suspicious lytic or blastic bony lesions. No pars defects. S-shaped scoliotic curvature is seen. Minimal retrolisthesis can be seen at L5-S1. T12-L1: At least moderate loss of disc height is seen. Vacuum disc phenomenon is seen at this level. Mild to moderate disc bulge is seen, with a central disc osteophyte protrusion. Bridging endplate osteophytes can be seen on both sides, left worse than right. There is no left-sided and moderate right-sided neural foraminal narrowing. Mild central canal narrowing is seen. L1-L2: Moderate to severe loss of disc height is seen. Endplate irregularity and sclerosis can be seen. Vacuum disc phenomenon is seen at this level. Significant bridging endplate osteophytes can be seen on the right, as on series 5, image 23. Moderate disc bulge is seen, with a central disc osteophyte protrusion. There is at least moderate bilateral neural foraminal narrowing seen, right worse than left. Moderate central canal narrowing is seen. L2-L3: Moderate to severe loss of disc height can be seen on the left. Endplate irregularity and sclerosis can be seen. Bridging endplate osteophytes can be seen on the left, as on series 5, image 18. Mild facet joint hypertrophy is seen. There is at least moderate left-sided and mild right-sided neural foraminal narrowing. Mild central canal narrowing is seen. L3-L4: Postoperative change is seen at this level, with bilateral pedicle screws and vertical fixation rods. The screws appear well placed. There is a disc spacer seen at this level. No findings of hardware failure or hardware loosening are seen. At least moderate disc bulge is seen, which is eccentric to the left. Bridging endplate osteophytes are seen on the left, as on series 5, image 23. There is moderate to severe left-sided and mild right-sided neural foraminal narrowing. Moderate central canal narrowing is seen. L4-L5: Moderate to severe loss of disc height is seen. Endplate irregularity and sclerosis can be seen. Vacuum disc phenomenon is seen at this level. Bridging endplate osteophytes are seen on the right and on the left. Mild facet joint hypertrophy is seen. There is at least moderate bilateral neural foraminal narrowing. Mild central canal narrowing is seen. L5-S1: Moderate loss of disc height is seen. Mild to moderate disc bulge is seen. There is at least moderate bilateral neural foraminal narrowing. No significant central canal narrowing is seen. Soft tissues: No retroperitoneal masses or hematomas. Visualized aorta is normal in caliber. IMPRESSION: Intact L3-L4 fixation hardware. Multiple levels of significant lumbar spine degenerative change can be seen, including multiple levels of significant bridging endplate osteophytes. Dictated by: Spenser Denson M.D. on 08/11/2023 at 10:55 Approved by: Spenser Denson M.D. on 08/11/2023 at 11:01
== END ==
LOC: CT 10:52
PROVIDERS: PCP Family Medicine; Referring Provider Orthopaedic Surgery Orthopaedic Surgery of the Spine; Visit Provider Orthopaedic Surgery Orthopaedic Surgery of the Spine
DX: M48.062 Spinal stenosis, lumbar region with neurogenic claudication (principal); M47.816 Spondylosis without myelopathy or radiculopathy, lumbar region; M25.78 Osteophyte, vertebrae; Z98.1 Arthrodesis status
CPT/HCPCS: 72131

== ENCOUNTER → 2023-11-09 14:33 | Outpatient (CLI) | payer MEDICARE, OTHER, SELFPAY ==
[2022-10-17 17:33] VITALS: BMI 28.9
--- NOTE | 2023-11-09 15:14 | EKG_ITS ---
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
[2023-11-09 15:28] LABS: Add Manual Diff / Slide Review NO; Basophils Absolute Auto 100 /uL (0-100); Basophils Percent Auto 1.6 % (0-2); Eosinophils Absolute Auto 200 /uL (0-450); Eosinophils Percent Auto 3.6 % (2-4); Hematocrit 33.7 % (36-46); Hemoglobin 11.1 g/dL (12.0-16.0); Lymphocytes Absolute Auto 1700 /uL (1100-4500); Lymphocytes Percent Auto 38.6 % (25-40); Mean Corpuscular Hemoglobin 30.3 PG (26-34); Mean Corpuscular Volume 91.7 fL (80-100); Monocytes Absolute Auto 700 /uL (0-900); Monocytes Percent Auto 17.3 % (3-14); Neutrophils Absolute Auto 1700 /uL (1500-7000); Neutrophils Percent Auto 38.9 % (50-75); Platelet Count 249 X10^3/uL (150-400); Red Blood Cell Count 3.67 X10^6/uL (4.0-5.2); Red Cell Distribution Width 15.8 % (11.6-14.8); White Blood Cell Count 4.3 X10^3/uL (4.5-11.0)
[2023-11-09 15:50] LABS: BUN Creatinine Ratio 29.6 (6-22); Blood Urea Nitrogen 16 mg/dL (7-17); Calcium 9.5 mg/dL (8.4-10.2); Carbon Dioxide 27 mmol/L (22-32); Chloride 103 mmol/L (98-107); Estimated Glomerular Filt Rate > 60 mL/min (>60); Glucose 104 mg/dL (80-110); HEMOLYSIS < 15 (0-50); Potassium 3.8 mmol/L (3.4-5.1); Sodium 135 mmol/L (137-145)
== END ==
LOC: LAB 14:35
PROVIDERS: PCP Family Medicine; Referring Provider Orthopaedic Surgery Orthopaedic Surgery of the Spine; Visit Provider Orthopaedic Surgery Orthopaedic Surgery of the Spine
DX: Z01.818 Encounter for other preprocedural examination (principal); Z01.812 Encounter for preprocedural laboratory examination
CPT/HCPCS: 36415; 80048; 85025; 93005

== ENCOUNTER → 2023-12-09 11:55 | Outpatient (CLI) | payer MEDICARE, OTHER, SELFPAY ==
[2022-10-17 17:33] VITALS: BMI 28.9
--- NOTE | 2023-12-09 | DI.CT.S_ITS ---
PROCEDURE: CT LUMBAR SPINE WO CON INDICATIONS: Spinal stenosis, lumbar region with neurogenic claudication TECHNIQUE: Noncontrast 3 mm thick sections acquired from the T12 level to the sacrum. Sagittal and coronal reformats were constructed. For radiation dose reduction, the following was used: automated exposure control. COMPARISON: [facility], CT, CT LUMBAR SPINE WO CON, 08/11/2023, 11:01. FINDINGS: Image quality: Excellent. Bones: Straightening of the normal lumbar lordosis. L3-L4 posterior spinal fixation and discectomy hardware. No evidence of hardware complication. Multilevel degenerative changes of the lumbar spine with disc height loss, vacuum disc phenomenon, degenerative endplate changes and osteophytosis. This is severe at L1-L2 and L4-5. Multilevel facet arthropathy, most pronounced in the lower lumbar spine. Diffusely decreased osseous mineralization. No acute vertebral body compression fractures. No suspicious lytic or blastic bony lesions. No pars defects. Moderate central canal stenosis at L1-L2, L2-L3 and L3-L4. Moderate to severe left neural foraminal stenosis at L2-L3 and L3-L4.. At least moderate bilateral neural foraminal stenosis at L4-5 and L5-S1. Soft tissues: No retroperitoneal masses or hematomas. Visualized aorta is normal in caliber. Atherosclerotic vascular calcifications. Diverticulosis within the visualized colon without evidence of diverticulitis. IMPRESSION: Redemonstration of multilevel degenerative changes of the lumbar spine status post L3-L4 posterior spinal fixation and discectomy. Multilevel moderate central canal stenosis is present. Multilevel high-grade neural foraminal stenosis as above. These findings are overall similar in appearance compared to prior exam. Dictated by: Andrew Rojas M.D. on 12/09/2023 at 14:36 Approved by: Andrew Rojas M.D. on 12/09/2023 at 14:40
== END ==
PROVIDERS: PCP Family Medicine; Referring Provider Orthopaedic Surgery Orthopaedic Surgery of the Spine; Visit Provider Orthopaedic Surgery Orthopaedic Surgery of the Spine
DX: M48.062 Spinal stenosis, lumbar region with neurogenic claudication (principal); M48.07 Spinal stenosis, lumbosacral region; M47.816 Spondylosis without myelopathy or radiculopathy, lumbar region
CPT/HCPCS: 72131

== ENCOUNTER 2023-12-25 06:12 | Inpatient (IN) | payer MEDICARE, OTHER, SELFPAY ==
[2022-10-17 17:33] VITALS: BMI 28.9
[2023-12-18 12:43] VITALS: BMI 31.2
[2023-12-25] VITALS (14 sets, daily range): BP systolic 100–172; BP diastolic 54–106; PULSE 67–90; RESP 12–18; TEMP 36–36.9; O2SAT 93–98; BMI 31.2
[2023-12-25] MEDS: LACTATED RINGERS 1,000 ML 42 ML IV (07:07)
[2023-12-25] MEDS: ACETAMINOPHEN 325 MG TABLET 975 MG PO (07:07)
--- NOTE | 2023-12-25 07:38 | SUR.OPER ---
Prone on spine table, head in foam head support, padded chest and pelvic supports, gel pad at knees, lower legs supported by pillows; nipples, genitalia and toes free of pressure, arms secured on foam padded arm boards at <90 degrees abduction. Tape over blanket at thigh secured to table.
--- NOTE | 2023-12-25 07:41 | PM.PREOP ---
Pre-operative Note Interval Note History & Physical reviewed/Exam performed by Physician: Yes Changes to H&P: No
[2023-12-25] MEDS: CEFAZOLIN 2 GM/100 ML PREMIX 100 ML IV ×3 (08:01→23:02)
[2023-12-25] MEDS: BUPIVACAINE 0.25% (PF) 30 ML, EPINEPHrine 0.15 MG INJ (08:11)
--- NOTE | 2023-12-25 10:54 | DI.RAD.S_ITS ---
PROCEDURE: XR LUMBAR SPINE 2-3V INDICATIONS: TLIF, ROBOT L2-3 TECHNIQUE: 3 views of the lumbar spine were acquired. COMPARISON: [facility], CR, XR LUMBAR SPINE 2-3V, 10/17/2022, 14:22. [facility], CT, CT LUMBAR SPINE WO CON, 12/09/2023, 12:03. FINDINGS: Intraoperative fusion appearing to be at L2-3, L3-4 with intervertebral spacers. Hardware appears intact. IMPRESSION: Intraoperative fusion. Dictated by: Gracie Hines M.D. on 12/25/2023 at 13:52 Approved by: Gracie Hines M.D. on 12/25/2023 at 13:52
[2023-12-25] MEDS: BUPIVACAINE LIPOSOME 266 MG/20 ML VIAL INJ (10:58)
--- NOTE | 2023-12-25 11:03 | PM.OP.1 ---
Operative Date/Time/Diagnoses Date of procedure: 12/25/23 Time of procedure: 07:40 Pre-op diagnosis: 1. L2-3 foraminal stenosis with radiculopathy 2. History of L3-4 TLIF with retained hardware Post-op diagnosis: same Procedure & Clinicians Procedure: 1. L2-3 Postero-lateral and posterior interbody fusion 2. L2-3 interbody cage placement. 3. L2-3 decompressive laminectomy with bilateral facetecomies 4. L2-4 Posterior segmental instrumentation 5. L3-4 left hemilaminectomy with exploration of fusion 6. L3-4 posterolateral fusion 7. [place] of bone marrow from iliac crest 8. Utilization of microsurgical technique and operating microscope 9. Utilization of robotic assisted navigation Same procedure as scheduled: Yes Indications: Patient has been having chronic back pain and worsening lumbar radiculopathy. Patient was found to have L2-3 left-sided foraminal stenosis with calcification and history of L3-4 fusion correlating with her current symptoms. Patient failed multiple conservative management with worsening pain weakness and numbness in her lower extremity. Patient has been having difficulty performing activity of daily living. After discussing risks benefits of treatment options, patient elected proceed with surgery. Surgeon: Padmini Daniel Cutting Machine Operator: Alyssa Beck Click Yes if Unassisted: No Anesthesia Type: General Operative Notes Closure Type: primary Specimen(s): none sent Prosthetic devices, grafts, tissues, transplants, or devices: GLobus CREO MIS screws, Rise cage Estimated Blood Loss (mL): 100 Blood products transfused: none Procedure in detail: Patient was seen in the preoperative area. Risks and benefits of the surgery was discussed with the patient. Informed consent was obtained from the patient and placed in the chart. Surgical site was marked. Patient was taken to the operative room. General anesthesia was administered. Prophylactic antibiotic was given to the patient less than 30 min before the incision was made. Patient was placed into a prone position on the [place] table. Patient's back was then prepped and draped in the sterile fashion. Time-out was performed at this time. After patient was prepped and draped, patient's PSIS was palpated and marked bilaterally. Small 1 cm incision was made over the PSIS for placement of the reference probes. Two trocar was placed into the PSIS 1 on each side. The reference probe was attached to the trocar of the reference apparatus. At this time the C-arm imaging was used to confirm AP and lateral of L2, L3, L4 vertebrae and merged the C-arm imaging using the [employer] robotic navigation system with the CT of the lumbar spine. After successful merging was completed and confirmed, skin marker was used to aldair out the skin incision using the [employer] robotic arm. Bilateral incision was made at this time. Using patient's previous scar incision was made over the L3-4 interval on the left side. Fascia was incised in line with skin incision. Patient's previously placed hardware over the L3-4 level was identified by dissecting down to the level the hardware using a Bovie and a Frye. The locking caps which was removed using One [employer] One screwdriver. The locking marilyn was then removed from the tulips of the pedicle screws using a Juan. The pedicle screws were then removed using the screwdriver. The screws were found to have good purchase. Pre templated trajectory was used and guided using the [employer] robotic navigation system for left L2, L3, L4 pedicle screws and right L2, L3, L4 pedicle screws placement. This was done by using the robotic arm to guide the high-speed bur to make a cortical entry point. Next a drill was placed also using the robotic arm and guided using the navigation system drilling partially through bilateral L2, L3, L4 pedicles. Next L2, L3, L4 pedicle screws it was pre templated and measured was placed onto the power security patrol driver and inserted into the pedicles bilaterally. After all 6 screws were placed C-arm imaging was taken of both AP and lateral to confirm the placement. Excellent placement of the screws were confirmed and a matched precisely with the pre planned screw placement using the navigation system. MARs retractor was inserted using [employer] nagivation guidence. Globus MARS retractors was placed inside the incision and docked onto the L2 lamina. Using microsurgical technique and operating microscope, a L2 laminectomy and L2-3 facetectomy was performed using a Kerrison rongeur. Patient was found have severe lateral recess and neural foramen stenosis which was fully decompressed after the laminectomy facetectomy. More than 75% of the facets were removed during the process of decompression rendering L2-3 level grossly unstable and required a fusion procedure at the same time. The disc space at L2-3 was identified, and a total diskectomy was performed at L2-3 level. The endplates were decorticated using a rasp and shaver. The total diskectomy and decortication was performed at L2-3 level in order to to accomplish a L2-3 fusion. The local bone from the laminectomy and facetectomy was saved for local bone grafting. After the total diskectomy and decortication was completed, Viacel bone graft material was combined with local bone that was harvested earlier. At this time, a separate skin is incision was made over the iliac crest. A Jamshidi needle was inserted into the iliac crest through a separate skin incision. 5 cc of bone marrow aspiration was obtained through the separate skin incision using a Jamshidi needle from the iliac crest. The bone marrow aspiration was combined with local bone and the Viacel bone grafting material. The bone grafting material was placed into the L2-3 interbody space along with a expandable cage. The cage was expanded to its maximum height using the torque limiting screwdriver. The disc preparation as well as the cage insertion were also performed under navigation guidance. After the cage was placed, AP and lateral C-arm imaging was taken to confirm placement of the cage and excellent position was confirmed. The fusion mass on the left side of L3-4 was exposed by performing a left-sided hemilaminectomy at L3-4 level. The hemilaminectomy was performed using the Kerrison rongeur to undercut the lamina as well removing additional epidural scar tissue for purpose of decompressing the epidural space. The fusion mass was explored and was found have visible motion indicating pseudoarthrosis. Globus MARS retractor was inserted and docked onto the L2-3, L3-4 posterolateral gutter. Using the power drill, posterior-lateral decortication was performed at L2-3, L3-4 level until bleeding cortical bone was identified. The remaining bone grafting material was placed into the L2-3, L3-4 posterior lateral gutter he order to accomplish posterolateral fusion at the L2-3, L3-4 level. At this time the tulips were attached to the L2, L3, L4 pedicle screw shanks. This was done in L2, L3, L4 pedicles bilaterally. After measuring the length of the rods, they were inserted into the tulips of the pedicle screws and locked in place using locking caps and torque limiting screwdriver bilaterally. Total 6 caps and 2 titanium rods was used in order to complete the posterior instrumentation construct. After all the hardware was placed, and confirmed with AP and lateral C-arm imaging, the wound was then irrigated with sterile normal saline and packed with Ray-Don gauze for 3 min to accomplish hemostasis. After the gauze was removed the deep fascia was closed with #1 Vicryl suture. The subcutaneous layer was closed with 2-0 Vicryl. The skin was closed with skin joey. Patient tolerated the procedure well. There were no complications. Neuro monitoring system was used to monitor patient's neurologic status throughout entire procedure. There was no disturbance of the neural monitoring signals throughout the case. The Operation could not have been safely performed without compromising the technical result or length of the procedure, without the assistance of a skilled surgical training specialist. The surgical training specialist was medically necessary for proper positioning, retraction and manipulation of instruments, proper exposure, surgical preparation, and manipulation of tissue. Complications: none Post-operative Condition: stable Disposition: PACU Plan for aftercare: Admit to inpatient hospital
[2023-12-25] MEDS: LACTATED RINGERS 1,000 ML 125 ML IV (11:43)
[2023-12-25] MEDS: OXYCODONE IR 5 MG TABLET PO ×3 (12:06→23:08)
[2023-12-25] MEDS: HYDROMORPHONE 0.5 MG INJ IV (13:42)
--- NOTE | 2023-12-25 14:12 | OT.IP.EVAL ---
Current Diagnoses Spinal stenosis, lumbar region without neurogenic claudication (12/25/23) Arthrodesis status (12/25/23) Surgery Performed Operation Date: 12/25/23 07:45 Actual Procedures p L2-3 TLIF L2-4 PSF with instrumentation-Robot - Padmini Daniel MD Past Medical History (Last Updated 11/09/22 @ 11:53 by Tanner Gillespie DO) Arthritis Asthma Back injury (05/03/13) Cervical radiculopathy Cervicalgia Chicken pox (~1959) Dislocation of left shoulder joint Diverticulitis Diverticulosis Dry eye (2006) Easy bruisability Facet arthropathy, cervical Facet arthropathy, lumbar Fibromyalgia (2013) GERD (gastroesophageal reflux disease) Hayfever Herniated nucleus pulposus, L3-4 right 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 Lumbar post-laminectomy syndrome Lumbar radiculopathy Measles (~1960) Mumps (~1959) Occipital neuralgia of left side Osteoarthritis (2008) Osteopenia Psoriasis Rheumatoid arthritis (05/2008) Spondylosis without myelopathy or radiculopathy, cervical region Surgical History (Last Updated 12/18/23 @ 12:49 by Kathleen Crespo RN) Anesthesia History of back surgery (12/06/13) History of back surgery (09/2022) History of bladder surgery (12/2013) History of knee replacement (12/14/10) 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) History of surgery (11/20/19) History of surgery on arm (02/21/13) History of tonsillectomy (1961) Hx of foot surgery (2019) Hx of foot surgery (2020) Hx of hemorrhoidectomy (08/28/19) Hx of shoulder surgery (04/22/15) S/P epidural steroid injection (12/03/13) Status post hysterectomy (04/2000) Status post total shoulder arthroplasty Occupational Therapy Inpatient Evaluation/Re-Eval M1 PT/OT-IP Prior Functional Status Start: 12/25/23 13:26 Freq: NEEDED Status: Active Protocol: Document 12/25/23 14:16 CGR (Rec: 12/25/23 14:38 CGR [id number]) Medical Review Prior Functional Status Medical History Reviewed Yes Communication Pt is an effective verbal communicator. Mobility and Gait Pt was MOD I with the use of a SPC Activities of Daily Living and IADL's Pt was IND for all ADLs but states that she needed more time. Social History Household Members spouse Living Arrangements House Number of Floors (Floors) Two Floors Number of Stairs To Enter/Railing? 13 steps to second floor entry . Once in the home, everything is level. Home Environment Standard Height Toilet,Tub/ Shower Home Equipment Straight Cane,Bedside Commode, Raised Toilet Seat w/Armrests, Hand Held Shower,Roof Truss Detailer,Sock Aid,Grab Bars In Shower Employment Status Retired Additional Social History Comment Pt has an adjustable bed but often sleeps in a recliner. M2 OT-IP Current Condition Start: 12/25/23 14:16 Freq: Status: Active Protocol: Document 12/25/23 14:16 CGR (Rec: 12/25/23 14:38 CGR [id number]) Occupational Therapy Current Condition Current Condition Evaluation Date 12/25/23 Treatment Diagnosis L2-3, L3-4 TLIF Diagnosis Onset Date 12/25/23 M3 OT- IP Subjective and Pain Start: 12/25/23 14:16 Freq: Status: Active Protocol: Document 12/25/23 14:16 CGR (Rec: 12/25/23 14:38 CGR [id number]) OT- Subjective Occupational Therapy Visit Type Type Initial Evaluation Visit Start Time 13:56 Visit Stop Time 14:12 OT Pain Assessment Pain When Pain Assessed At Rest Pain Present Pain Present Pain Reported Location Right Leg Intensity 4 Scale Used Numeric (0 - 10) Management Techniques Apply Cold,Modification of Treatment,Re-positioning, Timing of Activity with Medications M4 OT- IP ADL's Start: 12/25/23 14:16 Freq: Status: Active Protocol: Document 12/25/23 14:16 CGR (Rec: 12/25/23 14:38 CGR [id number]) OT [id number] General Evaluation Self-Feeding Ability Independent Comments OT Self-Feeding Comments eating lunch OT ADL-Grooming General Evaluation Grooming Ability Independent Comments OT Grooming Comments washing hands OT ADL-Oral Care Comments Oral Care Comments not performed OT ADL-Dressing Comments OT Dressing Comments not performed OT ADL-Toileting Comments OT Toileting Comments Just performed with P.T. OT ADL-Bathing Comments OT Bathing Comments not performed M5 OT- IP IADL's Start: 12/25/23 14:16 Freq: Status: Active Protocol: Document 12/25/23 14:16 CGR (Rec: 12/25/23 14:38 CGR [id number]) OT-Instrumental Activities of Daily Living Deficits IADL Deficits Identified No Deficits Home Safety Awareness Awareness of Need for Assistance at Home Good Awareness Ability to Problem Solve Emergency Able to Problem Solve Situations Medication Management Medication Management No Deficits Identified Money Management Money Management No Deficits Identified Meal Preparation Meal Preparation Caregiver Provides Assist Quality Review Specialist Quality Review Specialist Caregiver Provides Assist Driving Driving Comments 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 M6 OT- IP Functional Cognition Start: 12/25/23 14:16 Freq: Status: Active Protocol: Document 12/25/23 14:16 CGR (Rec: 12/25/23 14:38 CGR [id number]) Cognitive Factors Limiting Selfcare Function Cognitive Ability Level of Alertness Alert Patient Orientation Name,Age,Birthday,Month,Date, Year,Day of Week,Place, Situation Attention Span Ability Capable of Focused Attention, Capable of Sustained Attention Ability to Follow Commands Able to Follow Multi-Step Commands OT- Vision and Hearing OT- Hearing Assessment OT- Hearing Assessment WFL OT- Vision Assessment Visual Attentiveness WFL Occular Pursuits WFL Visual Convergence WFL M7 OT- IP Mobility and Balance Start: 12/25/23 14:16 Freq: Status: Active Protocol: Document 12/25/23 14:16 CGR (Rec: 12/25/23 14:38 CGR [id number]) OT-Transfer Assessment Sit to and From Stand Sit to and from Stand Standby Assistance Transfers Transfer Ability Standby Assistance Technique Transfer Destination Chair Transfer Technique Stand Step Pivot Devices Transfer Assistive Devices Gait Belt,Front Wheeled Walker Comments Mobility Comments Pt ambulated to sink for washing hands then returned to chair. OT- Gait Assessment Gait Gait Assistance Required: Standby Assistance Comments Gait Ability Comments mobility around the room. OT- Balance Assessment Sitting Balance and Reactions Static Sitting Balance Ability Good Dynamic Sitting Balance Ability Good M8 OT- IP Objective Assessments Start: 12/25/23 14:16 Freq: Status: Active Protocol: Document 12/25/23 14:16 CGR (Rec: 12/25/23 14:38 CGR [id number]) OT Gross Range of Motion Upper Extremity Range of Motion Assessment Within Functional Limits OT Strength Upper Extremity Strength Assessment Within Functional Limits Comments Strength Comments 4-/5 throughout OT- Coordination Assessment Upper Extremity Finger to Nose Test Within Functional Limits Finger Tapping Test Within Functional Limits OT-Muscle Tone Assessment Muscle Tone WNL Yes OT Sensation Assessment Edema Edema Absent M9 OT- IP Assessment and Plan Start: 12/25/23 14:16 Freq: Status: Active Protocol: Document 12/25/23 14:16 CGR (Rec: 12/25/23 14:38 CGR [id number]) OT Summary Assessment and Plan Potential Rehabilitation Potential Good Analytic Complexity at Evaluation Moderate Summary OT Impairments Pain Progress Towards Goals Progressing Toward Goals Assessment Summary Pt presents as a moderate complexity evaluation s/p admit for L2-3 and 3-4 TLIF. Pt will benefit from continued OT services to address ADLs but is likely to be ready for discharge tomorrow home with if pt is able to do the stairs. Pt has all necessary equipment and had had similar sx in the recent past. Pt may benefit from 1-2 more sessions. Goals Grooming Goal Independent Dressing Goal Independent Toileting Goal Independent Bathing Goal Independent Toilet Transfer Goal Independent Shower Transfer Goal Independent Days to Meet Goals 2 Frequency of Treatment Other frequency 5x a week Treatment Plan OT Treatment Plan ADL Training,Functional Mobility,Patient/Family Education,Discharge Planning Other Treatment Recommendations and Next LB dressing review, review Treatment Focus back precautions, ADLs standing Discharge Recommendations OT Discharge Recommendations Home with Assistance Transportation Needs at Discharge Private Vehicle
--- NOTE | 2023-12-25 14:32 | PT.IIE ---
Current Diagnoses Spinal stenosis, lumbar region without neurogenic claudication (12/25/23) Arthrodesis status (12/25/23) Surgery Performed Operation Date: 12/25/23 07:45 Actual Procedures p L2-3 TLIF L2-4 PSF with instrumentation-Robot - Padmini Daniel MD Surgical History (Last Updated 12/18/23 @ 12:49 by Kathleen Crespo, RN) Anesthesia History of back surgery (12/06/13) History of back surgery (09/2022) History of bladder surgery (12/2013) History of knee replacement (12/14/10) 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) History of surgery (11/20/19) History of surgery on arm (02/21/13) History of tonsillectomy (1961) Hx of foot surgery (2019) Hx of foot surgery (2020) Hx of hemorrhoidectomy (08/28/19) Hx of shoulder surgery (04/22/15) S/P epidural steroid injection (12/03/13) Status post hysterectomy (04/2000) Status post total shoulder arthroplasty Medical History (Last Updated 11/09/22 @ 11:53 by Tanner Gillespie DO) Arthritis Asthma Back injury (05/03/13) Cervical radiculopathy Cervicalgia Chicken pox (~1960) Dislocation of left shoulder joint Diverticulitis Diverticulosis Dry eye (2006) Easy bruisability Facet arthropathy, cervical Facet arthropathy, lumbar Fibromyalgia (2013) GERD (gastroesophageal reflux disease) Hayfever Herniated nucleus pulposus, L3-4 right 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 Lumbar post-laminectomy syndrome Lumbar radiculopathy Measles (~1960) Mumps (~1959) Occipital neuralgia of left side Osteoarthritis (2008) Osteopenia Psoriasis Rheumatoid arthritis (05/2008) Spondylosis without myelopathy or radiculopathy, cervical region Physical Therapy Inpatient Evaluation/Re-Eval M1 PT/OT-IP Prior Functional Status Start: 12/25/23 13:26 Freq: NEEDED Status: Active Protocol: Document 12/25/23 13:20 MB (Rec: 12/25/23 14:31 MB [id number]) Medical Review Prior Functional Status Medical History Reviewed Yes Diet/Fluid Consistency Regular Communication WNLs Mobility and Gait Pt reports mod I with her SPC in right hand Activities of Daily Living and IADL's Pt reports I, drove Social History Household Members spouse Living Arrangements House Number of Floors (Floors) Two Floors Number of Stairs To Enter/Railing? 13 steps with B rail to enter and 13 steps with right rail inside Home Environment Standard Height Toilet,Tub/ Shower Home Equipment Front Wheel Walker,Straight Cane,Raised Toilet Seat w/ Armrests,Shower Seat without Backrest,Hand Held Shower,Long Handled Sponge,Extruder Operator Horizontal,Grab Bars In Shower Employment Status Retired Additional Social History Comment Adjustable bed and recliner M2 PT-IP Current Condition Start: 12/25/23 13:26 Freq: NEEDED Status: Active Protocol: Document 12/25/23 13:20 MB (Rec: 12/25/23 14:31 MB [id number]) Physical Therapy Current Condition Current Condition Evaluation Date 12/25/23 Treatment Diagnosis L3-4 fusion M3 PT-IP Subjective Start: 12/25/23 13:26 Freq: NEEDED Status: Active Protocol: Document 12/25/23 13:20 MB (Rec: 12/25/23 14:31 MB [id number]) Subjective Physical Therapy Visit Type Type Progress Note Visit Start Time 13:20 Visit Stop Time 13:50 Number of INTERSTATE BUS DRIVER Visits 0 Physical Therapy Visit Comments Patient Comments Pt is agreeable to PT Therapy Pain Assessment Pain When Pain Assessed At Rest Pain Present Pain Present Pain Reported Location back Intensity 6 Scale Used Numeric (0 - 10) M4 PT-IP Mobility and Gait Start: 12/25/23 13:26 Freq: NEEDED Status: Active Protocol: Document 12/25/23 13:20 MB (Rec: 12/25/23 14:31 MB [id number]) PT-Bed Mobility Assessment Rolling Type of Rolling Log Rolling,Roll to Right Level of Assist Contact Guard Assistance Supine to Sit Supine to Sit Contact Guard Assistance, Bedrails Scooting Scooting to Edge of Bed Contact Guard Assistance PT-Transfer Assessment Sit to and From Stand Sit to and from Stand Minimal Assistance,1 Person Assistance,Use of Upper Extremities Equipment Transfer Assistive Device Gait Belt,Front Wheeled Walker Orthotic/Prosthetic Devices or Brace: No Transfers Transfer Destination Chair,Toilet Transfer Technique Ambulation Transfer Ability Level of Assist Minimal Assistance,1 Person Assistance,Use of Upper Extremities Comments Mobility Comments BP is high and drops some but con't to be high during treatment and nsg gives pt IV diuladid and feeling that BP is high d/t pain. Pt is set-up assistance for toileting in BR and with lots of urination post-surgery. Gait Assessment Gait Gait Assistance Required: Contact Guard Assist,Minimum Assistance Distance (Feet) 25 Able to Maintain Weight Bearing Status Yes During Gait Assistive Devices Assistive Device Gait Belt,Front Wheeled Walker Orthotic/Prosthetic Devices or Brace: No Gait Deviations General Gait Pattern Antalgic,Decreased Stride Length,Flexed Trunk,Step-to Gait,Wide Based Gait Factors Limiting Gait Function Factors Limiting Gait Function Decreased Activity Tolerance, Decreased Strength,Difficulty Following Directions,Limited Range of Motion,Pain,Poor Balance,Poor Safety Awareness Comments Gait Comments Slow gait but pt is able to gait train to BR and back to chair: 25' and then 20' today PT-Balance Assessment Sitting Balance and Reactions Static Sitting Balance Ability Good Dynamic Sitting Balance Ability Fair Standing Balance and Reactions Static Standing Balance Ability Fair Dynamic Standing Balance Ability Fair Device Used RW M5 PT-IP Objective Assessments Start: 12/25/23 13:26 Freq: NEEDED Status: Active Protocol: Document 12/25/23 13:20 MB (Rec: 12/25/23 14:31 MB [id number]) Orientation Orientation/Cognition Level of Alertness Alert Orientation Name,Age,Birthday,Month,Date, Year,Day of Week,Place, Situation Language Function Ability No Deficits Noted Safety Awareness Decreased Safety Awareness Memory Description No Deficits Noted Gross Range of Motion Upper Extremity ROM Impairments Defer to OT Lower Extremity ROM Impairments Limited active hip flexion today in hook lying and pt uses hands to help flex her left hip Strength Lower Extremity Strength Assessment Bilaterally Impaired Comments Strength Comments MMT deferred post-op and pt presents with functional weakness in her LEs, greatest in her left hip this afternoon Coordination Assessment Gross Coordination Gross Coordination Impaired Sensation Assessment Comments Sensation Comments Pt denies paresthesias but c/o left leg pain/muscle pull sensation Muscle Tone Muscle Tone WNL Yes M6 PT-IP Treatment Start: 12/25/23 13:26 Freq: NEEDED Status: Active Protocol: Document 12/25/23 13:20 MB (Rec: 12/25/23 14:31 MB [id number]) Physical Therapy Treatment Exercises Exercises Ankle Pumps Education Education Provided Precautions,Post-Op Packet, Safety M7 PT-IP Assessment and Plan Start: 12/25/23 13:26 Freq: NEEDED Status: Active Protocol: Document 12/25/23 13:20 MB (Rec: 12/25/23 14:31 MB [id number]) PT Summary Assessment and Plan Potential Rehabilitation Potential Good Status of Condition at Evaluation Evolving Summary Impairments Pain,ROM,Strength,Balance, Coordination,Sensation,Bed Mobility,Transfers,Gait, Activity Tolerance Progress Towards Goals Progressing Toward Goals Assessment Summary Pt presents with increased pain and BP same day surgery. She is willing to get up and walk to BR. She recalls no BLT precautions but not log rolling from previous back surgery last summer. Pt has left hip weakness and uses her hands to bend her left leg in the bed today. is nearby for assessment. They have 13 steps to enter home. Goals Bed Mobility Goal Independent Transfer Goal Independent,Front Wheeled Walker Gait Goal Independent,Front Wheel Walker Gait Distance 100 Other Goals Pt will ascend and descend 13 steps with B rail to allow safe home entrance. Days to Meet Goals 5 Frequency of Treatment Frequency Of Treatment Twice a Day Treatment Plan Physical Therapy Treatment Plan Bed Mobility Training,Transfer Training,Gait Training, Therapeutic Exercise,Balance Retraining,Post Op Education, Discharge Planning,Hot or Cold Pack,Neuromuscular Re-ed, Coordination Retraining,Manual Therapy Precautions Lumbar Precautions Log Roll,No Twisting,Limit Bending,Lifting Restriction of 10 lbs,Gait Belt above Incisional Area Recommendations To Nursing Amount of Assist Needed 1 Person Assist Discharge Recommendations PT Discharge Recommendations Home with Assistance Transportation Needs at Discharge Private Vehicle
[2023-12-25] MEDS: ACETAMINOPHEN 325 MG TABLET 650 MG PO (16:27)
[2023-12-25] MEDS: LABETALOL 100 MG TABLET PO (21:04)
[2023-12-25] MEDS: SENNOSIDES 8.6 MG TABLET 17.2 MG PO (21:05)
[2023-12-25] MEDS: PANTOPRAZOLE DR 40 MG TABLET PO (21:05)
[2023-12-25] MEDS: DOCUSATE 100 MG CAPSULE PO (21:05)
[2023-12-26] MEDS: ONDANSETRON 4 MG ODT SL (03:07)
[2023-12-26 03:13] VITALS: BP 133/80; PULSE 87; RESP 18; TEMP 36.6; O2SAT 94
[2023-12-26 06:05] LABS: Hematocrit 28.1 % (36-46); Hemoglobin 9.3 g/dL (12.0-16.0)
--- NOTE | 2023-12-26 07:15 | PM.PNPO.1 ---
Subjective Subjective Date Patient Seen: 12/26/23 Time Patient Seen: 07:16 Interval history: Pain is [id number]. Denies fever chills. No nausea or vomiting. Patient has assistance at home but she does have 13 steps in her house. Exam Vital Signs (past 8 hours): - 12/26/23 03:13 Temperature 97.9 F Pulse Rate 87 Respiratory Rate 18 Blood Pressure 133/80 Pulse Oximetry 94 Oxygen Flow Rate 0 Oxygen Delivery Method Nasal Cannula Oxygen Flow Rate 0 Narrative Exam Narrative: 68-year-old female resting comfortably in bed in no apparent distress. Neurovascular status is intact bilateral lower extremities. 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 GERD (gastroesophageal reflux disease) Dry eye (2006) Back injury (05/03/13) Asthma Chicken pox (~1960) Fibromyalgia (2013) Hayfever Osteoarthritis (2008) Measles (~1960) Mumps (~1959) Rheumatoid arthritis (05/2008) Surgical History History of back surgery (09/2022) Status post total shoulder arthroplasty Hx of foot surgery (2020) Hx of foot surgery (2019) History of surgery (11/20/19) Hx of hemorrhoidectomy (08/28/19) 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) Hx of shoulder surgery (04/22/15) S/P epidural steroid injection (12/03/13) Anesthesia History of back surgery (12/06/13) History of bladder surgery (12/2013) History of surgery on arm (02/21/13) History of knee replacement (12/14/10) History of tonsillectomy (1961) Status post hysterectomy (04/2000) Social History marital status: household members: spouse occupational status: previously employed Smoking Status: Never smoker alcohol intake: current substance use type: does not use Assessment & Plan Post-op Postoperative Procedures: Procedures Operation Date: 12/25/23 07:45 Actual Procedure Side Surgeon p L2-3 TLIF L2-4 PSF with instrumentation-Robot Padmini Daniel MD Postoperative day: 1 Postoperative status: doing well Postoperative plan: routine post-op care Postoperative plan narrative: Possible discharge home today or tomorrow.
[2023-12-26] MEDS: MULTIVITAMIN 1 TABLET 1 TAB PO (08:20)
[2023-12-26 08:21] VITALS: BP 128/67; PULSE 89
[2023-12-26] MEDS: LABETALOL 100 MG TABLET PO (08:21)
[2023-12-26] MEDS: lisinopriL 20 MG TABLET PO (08:21)
[2023-12-26] MEDS: DOCUSATE 100 MG CAPSULE PO (08:21)
[2023-12-26] MEDS: ASCORBIC ACID 500 MG TABLET 1000 MG PO (08:22)
--- NOTE | 2023-12-26 08:22 | CM.DANOTE ---
Initial DCP Assessment Visit Note Reviewed EMR and team rounds for status updates. Met with pt at bedside to introduce self and role, pt was found to be sitting upright in her recliner, eating her breakfast, appearing comfortable and in no distress. Pt resides modified independently with her in their own home here in [place]. Her or dtr will plan to transport her home once she's medically stable for d/c, 2-nights inpt anticipated. Payor: Medicare Attending: Dr. Daniel Pt is a 68 year-old F post-op day 1 from a TLIF lumbar surgery. She has a hx of worsening lumbar pain, left foot numbness/pain/ankle weakness and radiculopathy that runs down that leg as well. Conservative measures have not provided lasting relief, and so decision for surgery was made. DCP will continue to follow for any further evolving d/c assistance needs. Discharge Planning/Care Management Advanced directive, confirm from FAMILY Start: 12/25/23 11:59 Freq: Q24H Status: Active Protocol: Document 12/25/23 11:59 LW (Rec: 12/25/23 15:43 LW [id number]) Advance Directive, confirm on record Time 12:00 Person contacted patient Copy received No CM Discharge Assessment Start: 12/26/23 08:20 Freq: Status: Active Protocol: Document 12/26/23 08:20 DPL (Rec: 12/26/23 08:21 DPL [id number]) Discharge Planning Assessment Assigned Appliance Service Technician AIDA Eaton Advance Directives? Yes Advance Directives on File No History Provided By Patient,Medical Record Has Patient been admitted in last 30 No days? Prior Living Arrangements House Household Members spouse Type of transporation used prior to Drives own vehicle admit Independent with ADL's No: modified independent with a cane Is patient alert and oriented? Yes Caregiver for Another No DME Already Rented / Owned Elevated Toilet Seat,FWW / Walker,Cane Patient/Family Preference OP PT Therapy Discharge Plan Home Transportation Arrangement Family Referrals Initiated None needed Additional Comment Awaitng PT/OT recommendations. Whiteboard Updated in Patient Room with Yes name and ext. # of Appliance Service Technician Review Status In Process Please Provide Date Initial DC 12/26/23 Assessment Was Performed Pre-Anesthesia Assessment Start: 12/18/23 12:43 Freq: Status: Active Protocol: Document 12/18/23 12:43 LB (Rec: 12/18/23 13:32 LB [id number]) Pre-Anesthesia Assessment PAC Comment 12/18/23 Phone assessment. Patient Information Reviewed Via Phone Assessment Assessment Completed With Patient Diagnostic Results BMP/CMP,CBC,EKG Comment 11/09/23 at . Hgb 11.1, HCT 33.7 Primary Care Provider Cleveland Cardenas Seen Specialist in Last 12 Months Yes Specialist Seen Orthopedist Primary Language Citizen Of [place] Preferred Language Citizen Of [place] Deportation Examiner Required No Height 152.4 cm Weight 72.575 kg Body Mass Index (BMI) 31.2 Hearing Ability Normal Visual Assist Glasses Dentition Type Teeth, Natural Present,Dental Implants Barriers to Learning None Other Aids No Hx Anesthesia Reactions No Hx Family Anesthesia Reaction No: Pt adopted Hx Malignant Hyperthermia No Hx Blood Transfusions No Anesthesia Review Requested No Nail Welter No alcohol intake current alcohol intake frequency 0-2 drinks per day Smoking Status Never smoker Substance Use Type does not use Pain Present Pain Reported Comment Back pain, left hip. Musculoskeletal Symptoms Back Pain,Difficulty Walking, Joint Pain,Radiating Pain into Limb History of Falling (Recent or History of Yes ) Patient is completely paralyzed or No completely immobile Prosthesis or Orthotic Device Cane Mental Status Oriented to own ability Is patient on oxygen? No Does patient have EDEN/SOB No Hx Sleep Apnea No Currently Taking a Beta Sea Yes: Labetalol 100mg BID. Can You Climb a Flight of Stairs Without Yes SOB Hx Chest Pain No Hx SOB No Hx Syncope or Dizziness No Anti-Coagulant Therapy No Has a Economic Adviser No Cardiac Testing No Hx Pacemaker/ICD No Cardiac Clearance Received Not Applicable Dysphagia No Gastrointestinal Symptoms Reflux Bladder Pattern Nocturia Hx Urinary Self Catheterization No Diabetes No HgbA1C 4.7 Date 09/22/22 Patient No Lactating No Hx Drug Resistant Organism No Presence of External or Internal Medical Yes: Bilateral feet, left Devices shoulder, left knee, back. Have you had any close contact with No someone diagnosed with COVID-19? Are you experiencing any of these No symptoms symptoms? Received a COVID vaccine? Yes Marital Status Lives With spouse Current Living Arrangements House Number of Floors (Floors) One Floor Number of Stairs To Enter/Railing? 13 stairs with railing to enter, main floor living. Support System Child/Children,Spouse Patient Discharge Plan Description Return Home Additional comment Advised maximum 2 noc LOS. Do You Have Any Spiritual Beliefs That No May Affect Your HC Choices? Do You Have Any Cultural Practices That No May Affect Your HC Choices? Emergency Contact Name Juvenal () Darcy ( daughter) Emergency Contact Phone Number Juvenal: [phone] Darcy: [phone] Advance Directives? Yes Advance Directives on File No Requested Patient Bring Advanced Yes Directives DOS Power of Director Child No Power of Director Child Name Darcy Power of Director Child PAC Instructions Assistance for 24 hours post- op,Durable medical equipment, Medications to take/avoid,No ETOH/petroleum product on skin DOS,NPO,Post-op transportation,Pre-surgical wash,Sensory aids,Sturdy shoes /comfortable clothes,Do not bring valuables and remove jewelry Additional comment Pt states she refused mupirocin.
[2023-12-26] MEDS: CYCLOBENZAPRINE 10 MG TABLET 5 MG PO (08:23)
[2023-12-26] MEDS: ACETAMINOPHEN 325 MG TABLET 650 MG PO (08:23)
[2023-12-26] MEDS: polyethylene glycoL 3350 17 GM POWD.PACK PO (08:23)
[2023-12-26 08:26] VITALS: BP 128/67; PULSE 90; RESP 17; TEMP 36.9; O2SAT 95
--- NOTE | 2023-12-26 08:55 | PT.IPTN ---
Current Diagnoses Spinal stenosis, lumbar region without neurogenic claudication (12/25/23) Arthrodesis status (12/25/23) Surgery Performed Operation Date: 12/25/23 07:45 Actual Procedures p L2-3 TLIF L2-4 PSF with instrumentation-Robot - Padmini Daniel MD Physical Therapy Treatment Note M2 PT-IP Current Condition Start: 12/25/23 13:26 Freq: NEEDED Status: Active Protocol: Document 12/25/23 13:20 MB (Rec: 12/25/23 14:31 MB [id number]) Physical Therapy Current Condition Current Condition Evaluation Date 12/25/23 Treatment Diagnosis L3-4 fusion M3 PT-IP Subjective Start: 12/25/23 13:26 Freq: NEEDED Status: Active Protocol: Document 12/26/23 10:02 TS (Rec: 12/26/23 10:12 TS [id number]) Subjective Physical Therapy Visit Type Type Treatment Note Visit Start Time 08:55 Visit Stop Time 09:10 Number of BOOKSTORE CLERK Visits 1 Physical Therapy Visit Comments Patient Comments Pt found resting in chair, reports pain is 4/10, she is agreeable to PT. Therapy Pain Assessment Pain When Pain Assessed At Rest Pain Present Pain Present Pain Reported Location back Intensity 4 Scale Used Numeric (0 - 10) M4 PT-IP Mobility and Gait Start: 12/25/23 13:26 Freq: NEEDED Status: Active Protocol: Document 12/26/23 10:02 TS (Rec: 12/26/23 10:12 TS [id number]) PT-Transfer Assessment Sit to and From Stand Sit to and from Stand Standby Assistance,Use of Upper Extremities Equipment Transfer Assistive Device Gait Belt,Front Wheeled Walker Orthotic/Prosthetic Devices or Brace: No Comments Mobility Comments STS with FWW SBA. Pt ambulates ~100 in hallway with step to gait. She performs steps x6 ascending/descending with B handrails. Pt ambulates back to the room. Declines bed mobility due to she's going to be sleeping in a recliner. Pt was left in the chair, all needs met. Gait Assessment Gait Gait Assistance Required: Standby Assistance Distance (Feet) 100 Able to Maintain Weight Bearing Status Yes During Gait Assistive Devices Assistive Device Gait Belt,Front Wheeled Walker Orthotic/Prosthetic Devices or Brace: No Gait Deviations General Gait Pattern Antalgic,Decreased Stride Length,Flexed Trunk,Step-to Gait,Wide Based Gait Factors Limiting Gait Function Factors Limiting Gait Function Decreased Activity Tolerance, Decreased Strength,Difficulty Following Directions,Limited Range of Motion,Pain,Poor Balance,Poor Safety Awareness Stair Climbing Assessment Evaluation Level of Assist On Stairs Contact Guard Assistance,1 Person Assistance Devices Stair Climbing Assistive Devices Left Railing,Right Railing Technique/Endurance Stair Climbing Direction Ascend and Descend Stair Climbing Technique Step to Step Number of Steps Climbed 6 PT-Balance Assessment Sitting Balance and Reactions Static Sitting Balance Ability Good Dynamic Sitting Balance Ability Good Standing Balance and Reactions Static Standing Balance Ability Fair Dynamic Standing Balance Ability Fair Device Used RW M5 PT-IP Objective Assessments Start: 12/25/23 13:26 Freq: NEEDED Status: Active Protocol: Document 12/25/23 13:20 MB (Rec: 12/25/23 14:31 MB [id number]) Orientation Orientation/Cognition Level of Alertness Alert Orientation Name,Age,Birthday,Month,Date, Year,Day of Week,Place, Situation Language Function Ability No Deficits Noted Safety Awareness Decreased Safety Awareness Memory Description No Deficits Noted Gross Range of Motion Upper Extremity ROM Impairments Defer to OT Lower Extremity ROM Impairments Limited active hip flexion today in hook lying and pt uses hands to help flex her left hip Strength Lower Extremity Strength Assessment Bilaterally Impaired Comments Strength Comments MMT deferred post-op and pt presents with functional weakness in her LEs, greatest in her left hip this afternoon Coordination Assessment Gross Coordination Gross Coordination Impaired Sensation Assessment Comments Sensation Comments Pt denies paresthesias but c/o left leg pain/muscle pull sensation Muscle Tone Muscle Tone WNL Yes M6 PT-IP Treatment Start: 12/25/23 13:26 Freq: NEEDED Status: Active Protocol: Document 12/26/23 10:02 TS (Rec: 12/26/23 10:12 [id number]) Physical Therapy Treatment Education Education Provided Precautions,Post-Op Packet, Safety M7 PT-IP Assessment and Plan Start: 12/25/23 13:26 Freq: NEEDED Status: Active Protocol: Document 12/26/23 10:02 TS (Rec: 12/26/23 10:12 TS [id number]) PT Summary Assessment and Plan Potential Rehabilitation Potential Good Summary Impairments Pain,ROM,Strength,Balance, Coordination,Sensation,Bed Mobility,Transfers,Gait, Activity Tolerance Progress Towards Goals Progressing Toward Goals Assessment Summary Pt is making progress with her mobility. She is SBA for STS with FWW from the chair. She progressed her ambulation to ~ 100' SBA with FWW. She performs steps x6 with handrail assist and CGA. Pt has daughter and spouse to assist her at home. She declined bed mobility becuase she is going to be staying in her recliner. Goals Bed Mobility Goal Independent Transfer Goal Independent,Front Wheeled Walker Gait Goal Independent,Front Wheel Walker Gait Distance 100 Other Goals Pt will ascend and descend 13 steps with B rail to allow safe home entrance. Days to Meet Goals 5 Frequency of Treatment Frequency Of Treatment Twice a Day Treatment Plan Physical Therapy Treatment Plan Bed Mobility Training,Transfer Training,Gait Training, Therapeutic Exercise,Balance Retraining,Post Op Education, Discharge Planning,Hot or Cold Pack,Neuromuscular Re-ed, Coordination Retraining,Manual Therapy Other Recommendations and Next Treatment bed mobility if pt is willing. Focus Stairs. Precautions Lumbar Precautions Log Roll,No Twisting,Limit Bending,Lifting Restriction of 10 lbs,Gait Belt above Incisional Area Recommendations To Nursing Amount of Assist Needed 1 Person Assist Discharge Recommendations PT Discharge Recommendations Home with Assistance Transportation Needs at Discharge Private Vehicle
--- NOTE | 2023-12-26 10:44 | P.DS_ITS ---
History of Present Illness History of Present Illness Date Patient Seen: 12/26/23 Time Patient Seen: 10:44 Chief complaint: Back pain Narrative: Back pain has been [id number]. Denies fever or chills. No nausea or vomiting. Discharge Providers Provider Date of admission: 12/25/23 06:12 Discharge Date: 12/26/23 Primary care physician: Cleveland Cardenas MD Consults: 12/25/23 06:41 Consult to Discharge Planning Routine Comment: See 09/2022 d/c. May need BLS and HH again. 12/25/23 11:53 Consult to Occupational Therapy Evaluate & Treat Comment: Physician Instructions: Evaluate and treat Consult to Physical Therapy Evaluate & Treat Comment: Physician Instructions: Evaluate and Treat Discharge provider: Crow Magdaleno PA-C Summary Hospital Course Discharge Diagnosis: 1. L2-3 foraminal stenosis with radiculopathy 2. History of L3-4 TLIF with retained hardware Hospital Course: 1. L2-3 Postero-lateral and posterior interbody fusion 2. L2-3 interbody cage placement. 3. L2-3 decompressive laminectomy with bilateral facetecomies 4. L2-4 Posterior segmental instrumentation 5. L3-4 left hemilaminectomy with exploration of fusion 6. L3-4 posterolateral fusion 7. Mcqueeney of bone marrow from iliac crest 8. Utilization of microsurgical technique and operating microscope 9. Utilization of robotic assisted navigation Same procedure as scheduled: Yes Indications: Patient has been having chronic back pain and worsening lumbar radiculopathy. Patient was found to have L2-3 left-sided foraminal stenosis with calcification and history of L3-4 fusion correlating with her current symptoms. Patient failed multiple conservative management with worsening pain weakness and numbness in her lower extremity. Patient has been having difficulty performing activity of daily living. After discussing risks benefits of treatment options, patient elected proceed with surgery. Surgeon: Padmini Daniel Sales Marketing: Alyssa Beck Click Yes if Unassisted: No Anesthesia Type: General Operative Notes Closure Type: primary Specimen(s): none sent Prosthetic devices, grafts, tissues, transplants, or devices: GLobus CREO MIS screws, Rise cage Estimated Blood Loss (mL): 100 Blood products transfused: none Patient admitted for the above-mentioned procedure. Patient consented to the same. Patient underwent L2-L3 fusion, L3-L4 left hemilaminectomy with exploration of fusion, L3-L4 fusion. Patient in her room recovering well as in stable condition. Continue to limit bending, twisting, lifting. Multimodal pain management. Patient did well with physical therapy and will be discharged home today in stable condition. Exam Vital Signs (past 8 hours): - 12/26/23 03:13 12/26/23 08:21 12/26/23 08:21 Temperature 97.9 F Pulse Rate 87 89 89 Respiratory Rate 18 Blood Pressure 133/80 128/67 128/67 Pulse Oximetry 94 Oxygen Flow Rate 0 12/26/23 08:26 Temperature 98.4 F Pulse Rate 90 Respiratory Rate 17 Blood Pressure 128/67 Pulse Oximetry 95 Oxygen Flow Rate 0 Oxygen Delivery Method Nasal Cannula Oxygen Flow Rate 0 Narrative Exam Narrative: See progress note 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 GERD (gastroesophageal reflux disease) Dry eye (2006) Back injury (05/03/13) Asthma Chicken pox (~1960) Fibromyalgia (2013) Hayfever Osteoarthritis (2008) Measles (~1960) Mumps (~1959) Rheumatoid arthritis (05/2008) Surgical History History of back surgery (09/2022) Status post total shoulder arthroplasty Hx of foot surgery (2020) Hx of foot surgery (2019) History of surgery (11/20/19) Hx of hemorrhoidectomy (08/28/19) 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) Hx of shoulder surgery (04/22/15) S/P epidural steroid injection (12/03/13) Anesthesia History of back surgery (12/06/13) History of bladder surgery (12/2013) History of surgery on arm (02/21/13) History of knee replacement (12/14/10) History of tonsillectomy (1961) Status post hysterectomy (04/2000) Social History marital status: household members: spouse occupational status: previously employed Smoking Status: Never smoker alcohol intake: current substance use type: does not use Discharge Assessment & Plan Assessment and Plan Assessment: Patient progressing as expected Plan of Treatment: Multimodal pain management Limit bending, twisting, lifting Follow up outpatient Orthopedics 2 weeks as scheduled Discharge home today in stable condition Discharge Plan Discharge orders & Medications Discharge Orders: Discharge (Order); Ordered 12/26/23 Ordered By: Crow Magdaleno Prescriptions: New docusate sodium 100 mg Capsule 100 mg PO BID Qty: 20 0RF oxycodone 5 mg Tablet 5 mg PO Q3H PRN (Reason: Pain, Moderate (4-6)) Qty: 30 0RF Continued ascorbic acid (vitamin C) [Vitamin C] 1,000 mg Tablet 1,000 mg PO DAILY Qty: 0 cholecalciferol (vitamin D3) [Vitamin D3] 125 mcg (5,000 unit) Tablet 125 mcg PO Q OTHER DAY Qty: 0 hydroxychloroquine [Plaquenil] 200 MG tablet 200 mg PO BID Qty: 0 leflunomide [Arava] 20 mg tablet 20 mg PO DAILY Qty: 0 Prolia 60 mg/mL syringe 60 mg SUBCUT [id number] Rx Instructions: for bone density labetalol 100 mg tablet 100 mg PO BID Qty: 180 2RF cyclobenzaprine 5 mg tablet 5 mg PO Q4H PRN (Reason: muscle spasm) omeprazole 40 mg capsule,delayed release(DR/EC) 40 mg PO BEDTIME lisinopril 20 mg tablet 20 mg PO DAILY acetaminophen 500 mg Tablet 1,000 mg PO QID PRN (Reason: Pain, Moderate) multivitamin Tablet 1 tab PO DAILY triamcinolone acetonide [Nasacort] 55 mcg Aerosol,[place] 2 spray INTRANASAL DAILY Rx Instructions: administer into each nostril diclofenac sodium 1 % gel 2 gram TOP QID PRN (Reason: Pain) tramadol 50 mg tablet 50 mg PO TID PRN (Reason: pain) Qty: 42 0RF Discontinued ibuprofen 200 mg Tablet 600 mg PO Q6H PRN (Reason: Pain, Moderate) Follow up/Referrals: Padmini Daniel MD [Physician] - 01/09/24 11:00 am (Follow up at [facility] in [place]) Cleveland Cardenas MD [Primary Care Provider] - Diet/Activity/Treatments Diet: Diet as Tolerated Activity: No deep bending or twisting at the waist. No lifting more than 10 pounds. Skin/Wound/Dressing Care Report to your healthcare provider any signs of infection, such as:: chills, fever, night sweats, unusual drainage and unusual redness Dressing: May shower. Keep dressing as dry as possible. If dressing becomes wet or dirty, may remove and replace with clean, dry gauze. No bathing or otherwise soaking incisions. Do not apply any creams, lotions, or ointments to incisions. Visit Report/Discharge Packet Instructions: DI for Prescription Opioid Use, DI for Transforaminal Lumbar Interbody Fusion Stand Alone Forms: Patient Portal/API, Stroke Signs & Symptoms, Surgery Discharge Discharge Data Primary Care Provider: Cleveland Cardenas
--- NOTE | 2023-12-26 12:05 | OT.IP.TRT ---
Current Diagnoses Spinal stenosis, lumbar region without neurogenic claudication (12/25/23) Arthrodesis status (12/25/23) Surgery Performed Operation Date: 12/25/23 07:45 Actual Procedures p L2-3 TLIF L2-4 PSF with instrumentation-Robot - Padmini Daniel MD Occupational Therapy Treatment Note M2 OT-IP Current Condition Start: 12/25/23 14:16 Freq: Status: Active Protocol: Document 12/25/23 14:16 CGR (Rec: 12/25/23 14:38 CGR [id number]) Occupational Therapy Current Condition Current Condition Evaluation Date 12/25/23 Treatment Diagnosis L2-3, L3-4 TLIF Diagnosis Onset Date 12/25/23 M3 OT- IP Subjective and Pain Start: 12/25/23 14:16 Freq: Status: Active Protocol: Document 12/26/23 12:20 CCC (Rec: 12/26/23 12:24 CCC [id number]) OT- Subjective Occupational Therapy Visit Type Type Treatment Note Visit Start Time 12:00 Visit Stop Time 12:09 Occupational Therapy Visit Comments Patient Comments Pt dressed and ready to go home. Patient/Caregiver Goals To go home. OT Pain Assessment Pain When Pain Assessed At Rest Pain Present Pain Present Denied Pain M4 OT- IP ADL's Start: 12/25/23 14:16 Freq: Status: Active Protocol: Document 12/26/23 12:20 CCC (Rec: 12/26/23 12:24 CCC [id number]) OT ADL-Oral Care Comments Oral Care Comments Re-educated best to hinge at her hips or just spit into a cup for oral care needs. OT ADL-Toileting Comments OT Toileting Comments Suggested standing to wipe may be easier and to call her if getting up at night . M5 OT- IP IADL's Start: 12/25/23 14:16 Freq: Status: Active Protocol: Document 12/25/23 14:16 CGR (Rec: 12/25/23 14:38 CGR [id number]) OT-Instrumental Activities of Daily Living Deficits IADL Deficits Identified No Deficits Home Safety Awareness Awareness of Need for Assistance at Home Good Awareness Ability to Problem Solve Emergency Able to Problem Solve Situations Medication Management Medication Management No Deficits Identified Money Management Money Management No Deficits Identified Meal Preparation Meal Preparation Caregiver Provides Assist Medical Equipment Sales Medical Equipment Sales Caregiver Provides Assist Driving Driving Comments 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 M6 OT- IP Functional Cognition Start: 12/25/23 14:16 Freq: Status: Active Protocol: Document 12/25/23 14:16 CGR (Rec: 12/25/23 14:38 CGR [id number]) Cognitive Factors Limiting Selfcare Function Cognitive Ability Level of Alertness Alert Patient Orientation Name,Age,Birthday,Month,Date, Year,Day of Week,Place, Situation Attention Span Ability Capable of Focused Attention, Capable of Sustained Attention Ability to Follow Commands Able to Follow Multi-Step Commands OT- Vision and Hearing OT- Hearing Assessment OT- Hearing Assessment WFL OT- Vision Assessment Visual Attentiveness WFL Occular Pursuits WFL Visual Convergence WFL M7 OT- IP Mobility and Balance Start: 12/25/23 14:16 Freq: Status: Active Protocol: Document 12/25/23 14:16 CGR (Rec: 12/25/23 14:38 CGR [id number]) OT-Transfer Assessment Sit to and From Stand Sit to and from Stand Standby Assistance Transfers Transfer Ability Standby Assistance Technique Transfer Destination Chair Transfer Technique Stand Step Pivot Devices Transfer Assistive Devices Gait Belt,Front Wheeled Walker Comments Mobility Comments Pt ambulated to sink for washing hands then returned to chair. OT- Gait Assessment Gait Gait Assistance Required: Standby Assistance Comments Gait Ability Comments mobility around the room. OT- Balance Assessment Sitting Balance and Reactions Static Sitting Balance Ability Good Dynamic Sitting Balance Ability Good M8 OT- IP Objective Assessments Start: 12/25/23 14:16 Freq: Status: Active Protocol: Document 12/25/23 14:16 CGR (Rec: 12/25/23 14:38 CGR [id number]) OT Gross Range of Motion Upper Extremity Range of Motion Assessment Within Functional Limits OT Strength Upper Extremity Strength Assessment Within Functional Limits Comments Strength Comments 4-/5 throughout OT- Coordination Assessment Upper Extremity Finger to Nose Test Within Functional Limits Finger Tapping Test Within Functional Limits OT-Muscle Tone Assessment Muscle Tone WNL Yes OT Sensation Assessment Edema Edema Absent M9 OT- IP Assessment and Plan Start: 12/25/23 14:16 Freq: Status: Active Protocol: Document 12/26/23 12:20 CCC (Rec: 12/26/23 12:24 CCC [id number]) OT Summary Assessment and Plan Potential Rehabilitation Potential Good Analytic Complexity at Evaluation Low Summary Progress Towards Goals Progressing Toward Goals Assessment Summary Pt going home today and able to finalize all OT suggestions . Pt has a very supportive to assist her at home. Discharge Recommendations OT Discharge Recommendations Home with Assistance Transportation Needs at Discharge Private Vehicle
== END 2023-12-26 12:50 | disposition home or self-care (01) | DRG 427 ==
PROVIDERS: Admitting Provider Orthopaedic Surgery Orthopaedic Surgery of the Spine; PCP Family Medicine; Referring Provider Orthopaedic Surgery Orthopaedic Surgery of the Spine; Visit Provider Orthopaedic Surgery Orthopaedic Surgery of the Spine
PROC: 0SG00AJ Fusion of Lumbar Vertebral Joint with Interbody Fusion Device, Posterior Approach, Anterior Column, Open Approach (ICD-10-PCS; principal; 2023-12-25 07:45)
DX: M48.062 Spinal stenosis, lumbar region with neurogenic claudication (principal); M96.0 Pseudarthrosis after fusion or arthrodesis; M54.16 Radiculopathy, lumbar region; M96.1 Postlaminectomy syndrome, not elsewhere classified; L40.9 Psoriasis, unspecified; M79.7 Fibromyalgia; M06.9 Rheumatoid arthritis, unspecified; M85.80 Other specified disorders of bone density and structure, unspecified site; K21.9 Gastro-esophageal reflux disease without esophagitis; Z79.69 Long term (current) use of other immunomodulators and immunosuppressants; Z98.1 Arthrodesis status
CPT/HCPCS: 36415; 72100; 76000; 85014; 85018; 97161; 97166; 97530; 97535; C1776; C1713; C9290; J0171; J0330; J0690; J1100; J1171; J2405; J2704

== ENCOUNTER → 2024-05-08 16:14 | Outpatient (CLI) | payer MEDICARE, OTHER, SELFPAY ==
[2023-12-25 11:55] VITALS: BMI 31.2
--- NOTE | 2024-05-08 16:15 | DI.MG.S_ITS ---
MM screening mammo BI: 05/08/2024. BI-RADS: 1 CLINICAL: 69-year old female for bilateral screening mammogram. Tyrer-Cuzick lifetime risk of 7.6%. No personal or first-degree family history of breast cancer. PRIOR EXAMS 02/16/2023, 02/15/2022, 10/30/2020, 09/28/2019, 08/28/2018, 08/24/2017, 08/02/2016, 07/30/2015, 07/23/2014. MAMMOGRAPHY TECHNIQUE: 2D and 3D (tomosynthesis) digital mammographic views obtained, with additional images as needed for full coverage. Current study was also evaluated with a Computer Aided Detection (CAD) system. DENSITY C. The breasts are heterogeneously dense, which may obscure small masses. MAMMOGRAPHY FINDINGS Bilateral: No suspicious mass, asymmetry, microcalcification, or other abnormality seen. No significant change from comparison. IMPRESSION: * No evidence of malignancy. RECOMMENDATIONS Bilateral * Annual screening mammography. OVERALL ASSESSMENT CATEGORY BI-RADS-1: Negative. The [employer] recommends annual screening mammography beginning at age 40 for women with average risk of breast cancer. ELECTRONICALLY SIGNED: Jackie Davalos M.D. on 05/09/2024 at 08:18:43 AM PT Interpreting Station ID: [id number]
== END ==
PROVIDERS: PCP Family Medicine; Referring Provider Family Medicine; Visit Provider Family Medicine
DX: Z12.31 Encounter for screening mammogram for malignant neoplasm of breast (principal)
CPT/HCPCS: 77063; 77067

== ENCOUNTER → 2024-06-22 11:47 | Outpatient (CLI) | payer MEDICARE, OTHER, SELFPAY ==
[2023-12-25 11:55] VITALS: BMI 31.2
--- NOTE | 2024-06-22 11:48 | DI.CT.S_ITS ---
PROCEDURE: CT SHOULDER LEFT WITHOUT CON INDICATIONS: Left shoulder pain TECHNIQUE: Noncontrast 0.75 mm thick sections acquired from the acromioclavicular joint to the inferior scapula, with coronal and sagittal reformatting. COMPARISON: None. FINDINGS: Image quality: Excellent. Bones: Total left shoulder prosthesis with anterior dislocation of the humeral component with moderate effusion. The humeral and glenoid components appear well seated without perihardware lucencies. Tiny os acetabuli. Soft tissues: Moderate effusion. Visualized lung is unremarkable. IMPRESSION: Anterior inferior dislocation of a left total shoulder prosthesis effusion. Dictated by: Klaus Singleton M.D. on 06/22/2024 at 11:23 Approved by: Klaus Singleton M.D. on 06/22/2024 at 11:29
== END ==
PROVIDERS: PCP Family Medicine; Referring Provider Orthopaedic Surgery Sports Medicine; Visit Provider Orthopaedic Surgery Sports Medicine
DX: M25.512 Pain in left shoulder (principal); T84.028A Dislocation of other internal joint prosthesis, initial encounter; M25.412 Effusion, left shoulder
CPT/HCPCS: 73200

== ENCOUNTER 2024-06-22 12:40 | Emergency (ER) | payer MEDICARE, OTHER, SELFPAY ==
[2023-12-25 11:55] VITALS: BMI 31.2
[2024-06-22] VITALS (17 sets, daily range): BP systolic 117–191; BP diastolic 65–92; PULSE 75–88; RESP 16–27; TEMP 37.1; O2SAT 92–97; BMI 31.2
--- NOTE | 2024-06-22 13:08 | ED_ITS ---
HPI - Extremity Injury (Upper) General Chief Complaint: Extremity Injury, Upper Stated Complaint: dislocated shoulder on outpatient CT Time Seen by Provider: 06/22/24 13:07 Source: patient, RN notes reviewed and old records reviewed Mode of arrival: Wheelchair Limitations: no limitations History of Present Illness HPI narrative: 69-year-old female history of rheumatoid arthritis, hypertension patient had outpatient CT of her left shoulder for persistent pain. Was found to have dislocation on her CT as an outpatient. Patient elected to come to the emergency department. She was unsure of exact timeframe she thinks in the last 1-3 weeks it may have dislocated. She was had increased pain did have reportedly x-rays 3-4 weeks ago that were negative at her primary care. She was referred to outpatient Orthopedic group a and has been receiving PT and had outpatient CT ordered. Patient states she did not note some increased bruising in the past 1-2 weeks. But has not had any falls or injuries. She states she has not been able to lift her arm up above her shoulder for several weeks. She has been attending physical therapy. She notes they has been taking her through range of motion although was more difficult recently. She notes occasionally some numbness tingling of her arm but not persistently. Her lower arm has been moving normally. She states her initial shoulder was done [place] [address] Galeana, was revision in [address] Childs but he he was no longer here. Sought orthopedic surgeon [facility] in [place] that she was now following. She does not take any aspirin or blood thinners. She was had multiple orthopedic surgeries including for her back, foot 2 shoulder surgeries. Describes an allergy to gabapentin. States she was had anesthesia and sedation in the past without issue. She does not use CPAP. Related Data Home Medications Medication Instructions Recorded Confirmed ascorbic acid (vitamin C) 1,000 mg 1,000 mg PO DAILY ##0 07/21/11 12/18/23 tablet (Vitamin C) cholecalciferol (vitamin D3) 125 125 mcg PO Q OTHER DAY ##0 07/21/11 12/18/23 mcg (5,000 unit) tablet (Vitamin D3) hydroxychloroquine 200 mg tablet 200 mg PO BID ##0 12/07/16 12/25/23 (Plaquenil) leflunomide 20 mg tablet (Arava) 20 mg PO DAILY #0 tabs 08/02/18 12/25/23 denosumab 60 mg/mL subcutaneous 60 mg SUBCUT [id number] 01/25/19 12/18/23 syringe (Prolia) cyclobenzaprine 5 mg tablet 5 mg PO Q4H PRN muscle spasm 10/16/19 12/25/23 diclofenac sodium 1 % topical gel 2 gram topical QID PRN Pain 12/30/19 12/18/23 omeprazole 40 mg capsule,delayed 40 mg PO BEDTIME 12/15/21 12/25/23 release lisinopril 20 mg tablet 20 mg PO DAILY 12/17/21 12/25/23 triamcinolone acetonide 55 mcg 2 spray intranasal DAILY 09/26/22 12/18/23 nasal spray aerosol (Nasacort) acetaminophen 500 mg tablet 1,000 mg PO QID PRN Pain, Moderate 12/18/23 12/25/23 multivitamin 1 tab PO DAILY 12/18/23 12/18/23 Previous Rx's Medication Instructions Recorded labetalol 100 mg tablet 100 mg PO BID #180 tabs 03/02/21 tramadol 50 mg tablet 50 mg PO TID PRN pain #42 tabs 08/22/22 docusate sodium 100 mg capsule 100 mg PO BID #20 caps 12/26/23 oxycodone 5 mg tablet 5 mg PO Q3H PRN Pain, Moderate 12/26/23 (4-6) #30 tabs Allergies Allergy/AdvReac Type Severity Reaction Status Date / Time house dust mite Allergy Mild Verified 06/22/24 12:44 amoxicillin [From AUGMENTIN] AdvReac Intermediate Nausea Verified 06/22/24 12:44 clavulanic acid AdvReac Intermediate Nausea Verified 06/22/24 12:44 [From AUGMENTIN] gabapentin [GABAPENTIN] AdvReac Mild WEIGHT GAIN Verified 06/22/24 12:44 Sulfa (Sulfonamide AdvReac Mild nausea Verified 06/22/24 12:44 Antibiotics) [SULFA (SULFONAMIDE ANTIBIOTICS)] Review of Systems Review of Systems ROS Unobtainable: All systems reviewed & are unremarkable except as noted in HPI and below Patient History Medical History Lumbar post-laminectomy syndrome Herniated nucleus pulposus, L3-4 right Cervicalgia Lumbar radiculopathy Spondylosis without myelopathy or radiculopathy, cervical region Dislocation of left shoulder joint Occipital neuralgia of left side Facet arthropathy, cervical Facet arthropathy, lumbar Cervical radiculopathy Arthritis Psoriasis Easy bruisability Diverticulitis Diverticulosis Osteopenia 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 GERD (gastroesophageal reflux disease) Dry eye (2006) Back injury (05/03/13) Asthma Chicken pox (~1960) Fibromyalgia (2013) Hayfever Osteoarthritis (2008) Measles (~1960) Mumps (~1959) Rheumatoid arthritis (05/2008) Surgical History History of back surgery (09/2022) Status post total shoulder arthroplasty Hx of foot surgery (2020) Hx of foot surgery (2019) History of surgery (11/20/19) Hx of hemorrhoidectomy (08/28/19) 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) Hx of shoulder surgery (04/22/15) S/P epidural steroid injection (12/03/13) Anesthesia History of back surgery (12/06/13) History of bladder surgery (12/2013) History of surgery on arm (02/21/13) History of knee replacement (12/14/10) History of tonsillectomy (1961) Status post hysterectomy (04/2000) Social History marital status: household members: spouse occupational status: previously employed Smoking Status: Never smoker alcohol intake: current substance use type: does not use Smoking Status: Never smoker alcohol intake frequency: 0-2 drinks per day Alcohol type: wine and hard liquor Exam Narrative Exam Narrative: GENERAL: Alert and oriented x three, well-appearing female in mild distress HEENT: Head normocephalic, atraumatic, EOMI, pupils reactive, face symmetric, moist mucous membranes NECK: Supple, full range of motion CARDIOVASCULAR: Regular rate and rhythm without murmurs, rubs or gallops. RESPIRATORY: Breath sounds equal bilaterally, no wheezes rales or rhonchi. ABDOMEN: Soft, nontender. Normoactive bowel sounds all 4 quadrants. No g uarding or rebound, rigidity, no mass : No CVA tenderness EXTREMITIES: Patient does have what appears to be some deformity of left compared to right shoulder, she can not lift her arm above 45? but I can move her passively to 90? and she tolerates fairly well. 2+ radial pulses bilaterally arbor end mainspring former are equal bilaterally patient has 5 5 muscle strength. She was actually able to push herself and move herself around the bed with her left arm as well. No clubbing or edema. Neurovascularly intact NEUROLOGICAL: Cranial nerves II through XII grossly intact. Moving all extremities SKIN: Warm, dry, no petechiae, no rashes or lesions. Initial Vital Signs Initial Vital Signs: Vital Signs Temperature 98.7 F 06/22/24 12:44 Pulse Rate 86 06/22/24 12:44 Respiratory Rate 17 06/22/24 12:44 Blood Pressure 191/89 H 06/22/24 12:44 Pulse Oximetry 97 06/22/24 12:44 Oxygen Delivery Method Room Air 06/22/24 12:44 Procedures Orthopedic Joint Reduction Joint #1: Time Out Performed: Yes Side: left Joint Reduction Location: shoulder Analgesia: procedural sedation Amount of anesthesic used (mL): 75 Shoulder Technique Used (if applicable): traction/counter-traction, scap lexii manipulation and external rotation Technique used: traction/counter-traction and direct manipulation Post-reduction neuro exam: intact and no change Post-reduction vascular: intact and no change Post Reduction X-Ray Obtained: Yes Post Reduction X-Ray Results: not reduced Splint Applied: Yes (Sling) Patient Tolerated Procedure: Well and No complications Procedural Sedation Consent signed: Yes Time out performed: Yes Indication: fracture/dislocation reduction ASA Class: II Mallampati Airway Classification: Class III Time of Last PO Intake: 11:00 Preparation: damaged freight inspector applied, pulse oximeter, capnometry used, supplemental O2 applied, suction/airway equipment at bedside and IV secured IV Propofol dose (mg): 75 ED Sedation Level: Moderate (Concious) Patient Tolerated Procedure: Well and No complications Complications: none Interventions: Airway repositioned Course Orders Ordered: ED Orders 06/22/24 14:10 XR shoulder LT 2+ views Stat Discontinued Medications Propofol (Propofol 200 Mg/20 Ml Vial) 75 mg 1 mg/kg (75 mg) IV NOW ONE Stop: 06/22/24 13:32 Last Admin: 06/22/24 13:54 Dose: 50 mg Documented By: JACINDA Propofol (Propofol 200 Mg/20 Ml Vial) 25 mg IV NOW ONE Stop: 06/22/24 13:57 Last Admin: 06/22/24 13:56 Dose: 25 mg Documented By: JACINDA Vital Signs Vital signs: Vital Signs - 8 hr 06/22/24 12:44 06/22/24 13:32 06/22/24 13:34 Temperature 98.7 F Pulse Rate 86 85 88 Respiratory Rate 17 Blood Pressure 191/89 H Pulse Oximetry 97 92 94 Oxygen Delivery Method Room Air 06/22/24 13:34 06/22/24 13:43 06/22/24 13:43 Temperature Pulse Rate 82 Respiratory Rate 25 H Blood Pressure 179/87 H 183/81 H Pulse Oximetry 95 Oxygen Delivery Method 06/22/24 13:56 06/22/24 13:56 06/22/24 14:00 Temperature Pulse Rate 82 79 Respiratory Rate 27 H 20 Blood Pressure 155/72 H Pulse Oximetry 95 97 Oxygen Delivery Method 06/22/24 14:01 06/22/24 14:01 06/22/24 14:05 Temperature Pulse Rate 81 Respiratory Rate 20 Blood Pressure 120/65 117/68 Pulse Oximetry 96 Oxygen Delivery Method 06/22/24 14:05 06/22/24 14:10 06/22/24 14:10 Temperature Pulse Rate 75 84 Respiratory Rate 23 16 Blood Pressure 154/78 H Pulse Oximetry 96 96 Oxygen Delivery Method 06/22/24 14:14 06/22/24 14:15 06/22/24 14:15 Temperature Pulse Rate 88 76 Respiratory Rate 20 22 Blood Pressure 145/81 H Pulse Oximetry 95 Oxygen Delivery Method 06/22/24 14:30 06/22/24 15:00 06/22/24 15:00 Temperature Pulse Rate 77 76 Respiratory Rate 24 23 Blood Pressure 149/83 H 167/84 H Pulse Oximetry 96 96 Oxygen Delivery Method Room Air 06/22/24 15:16 06/22/24 15:16 06/22/24 15:30 Temperature Pulse Rate 82 80 Respiratory Rate 21 Blood Pressure 172/92 H Pulse Oximetry 94 95 Oxygen Delivery Method 06/22/24 16:00 06/22/24 16:26 06/22/24 16:26 Temperature Pulse Rate 82 83 Respiratory Rate 20 16 Blood Pressure 156/88 H Pulse Oximetry 95 96 Oxygen Delivery Method MDM - Extremity Injury (Upper) Lab Data Labs: Point of Care Testing Test Results Not applicable MDM Narrative Medical decision making narrative: Outpatient CT left shoulder without contrast shows anterior inferior dislocation of left total shoulder prosthesis with moderate effusion. Humeral and glenoid components appear well seated without perihardware lucency. Tiny os acetabuli. post reduc Shoulder x-ray shows persistent shoulder dislocation, no suspicious bony lesions. Discussed with patient potential dislocation has been present for 1-3 weeks and after further discussion she was not sure about her x-ray imaging it may have been in March when was last known to be in place versus April. Patient is noted issues for quite some time. Discussed we will review with local orthopedic surgery if they recommended attempted reduction of versus outpatient follow up as patient has been out for at least a week possibly longer. She was neurovascularly intact. Discussed with Dr. Echavarria at 1:15 p.m. she reviewed patient's imaging notes that patient's imaging was ordered by [facility]. She notes we can proceed with attempted reduction might be unsuccessful would recommend traction of the elbow with pressure with the proximal humerus for reduction. If unsuccessful would have patient follow up with her current orthopedic team. Discussed with the patient we did discuss that there was a very good chance it might be unsuccessful. After discussion she elects to proceed with procedural sedation and attempted reduction. During procedural sedation multiple attempts with gentle traction patient tolerated very well but immediately dislocates when attempting to return her arm back to the previous location. Attempted several different attempts patient's shoulder moves quite easily but would then move back out quite easily. Repeat x-ray shows that the shoulder is dislocated. Discussed with the patient we had reviewed that this might be unsuccessful. She was neurovascularly intact pre and post attempt. Plan for her to follow up with Orthopedic surgery we will give local contact as well. Patient has follow up with the [facility] as well. Did put a call out to them as well. Spoke with Dr. Treviño, orthopedic surgery at [facility]. Patient's outpatient CT findings from today, patient was suspected to have been dislocated for possibly 1-3 weeks essentially longer but unclear exact timeframe. He notes that they were seen on 06/20/2024 in their office but did not have imaging at that time. He recommends could go to [facility] or [facility] to have attempted reduction with orthopedic surgery. Notes last xray images are from March 24, 2024. Had office visit 2 days ago but no images. He would recommend patient be seen by Orthopedic surgery for decision to be made whether to attempt reduction again today with Orthopedics versus outpatient follow-up versus going to OR today. Relayed recommendations to the patient. She is reluctant to follow up at [facility] ER today, states she does not plan to. I did discuss that if she felt she was I would call the other facility to give them a heads up.. She has a appointment on Monday with the Orthopedic surgery group out of [place] specifically for foot but has been in contact with them about her shoulder. Discussed pushing her images (done by DI today) to [place] and I did talk to Dr. Dumont and sounds like they would have access if images or pushed a [facility]. Discussed local orthopedic group would also be an option as she had her surgery done with 1 of their surgeons prior. Discharge Plan Departure Patient Disposition: Home Clinical Impression: Dislocation of left shoulder joint Qualifiers: Encounter type: initial encounter Qualified Code(s): S43.005A - Unspecified dislocation of left shoulder joint, initial encounter Instructions: LEVY for Shoulder Dislocation Activity Restrictions/Additional Instructions: Your outpatient imaging today did show an anterior/inferior dislocation of your left shoulder. I did talk to our local orthopedic surgery they recommended attempted reduction but because of the unknown length of time maybe unsuccessful. Unfortunately today it was not successful. There does seem to be a lot of laxity your joint would use quite easily but then dislocated almost immediately thereafter again. I did speak with the hotel reservation agent orthopedic surgeon for [facility], they recommended that you go to the ER to have reduction with either the group that performed your prior surgery or where their group works. Images were pushed to . I did talk to the on-call orthopedic surgery here, they recommended attempted reduction boat have you follow up outpatient. Continue with Tylenol up to a 1000 mg every 6 hours as needed for pain. Continue your other home medications as prescribed. Elevated affected body part to decrease swelling. OK to use ice pack on the affected body part. Use for 15-20 minutes each time, for 5-6x per day. If you develop worsening pain, numbness, tingling, discoloration of the affected body part, adjust the sling, and either see your doctor for an urgent re-assessment, or return to the Emergency Department. Return to the Emergency Department for any new or worsening symptoms. Prescriptions: No Action ascorbic acid (vitamin C) [Vitamin C] 1,000 mg Tablet 1,000 mg PO DAILY Qty: 0 cholecalciferol (vitamin D3) [Vitamin D3] 125 mcg (5,000 unit) Tablet 125 mcg PO Q OTHER DAY Qty: 0 hydroxychloroquine [Plaquenil] 200 MG tablet 200 mg PO BID Qty: 0 leflunomide [Arava] 20 mg tablet 20 mg PO DAILY Qty: 0 Prolia 60 mg/mL syringe 60 mg SUBCUT [id number] Rx Instructions: for bone density labetalol 100 mg tablet 100 mg PO BID Qty: 180 2RF cyclobenzaprine 5 mg tablet 5 mg PO Q4H PRN (Reason: muscle spasm) omeprazole 40 mg capsule,delayed release(DR/EC) 40 mg PO BEDTIME lisinopril 20 mg tablet 20 mg PO DAILY acetaminophen 500 mg Tablet 1,000 mg PO QID PRN (Reason: Pain, Moderate) multivitamin Tablet 1 tab PO DAILY docusate sodium 100 mg Capsule 100 mg PO BID Qty: 20 0RF oxycodone 5 mg Tablet 5 mg PO Q3H PRN (Reason: Pain, Moderate (4-6)) Qty: 30 0RF triamcinolone acetonide [Nasacort] 55 mcg Aerosol,[place] 2 spray INTRANASAL DAILY Rx Instructions: administer into each nostril diclofenac sodium 1 % gel 2 gram TOP QID PRN (Reason: Pain) tramadol 50 mg tablet 50 mg PO TID PRN (Reason: pain) Qty: 42 0RF Referrals: Sindhu Huitron MD [Physician] - Mikel Treviño MD [Non-Staff] - Cleveland Cardenas MD [Primary Care Provider] - Stand Alone Forms: Patient Portal/API/Survey
[2024-06-22] MEDS: propofoL 200 MG/20 ML VIAL 75 MG IV (13:54)
[2024-06-22] MEDS: propofoL 200 MG/20 ML VIAL 25 MG IV (13:56)
--- NOTE | 2024-06-22 14:10 | DI.RAD.S_ITS ---
PROCEDURE: XR SHOULDER LT MIN 2V INDICATIONS: attempted reduction TECHNIQUE: 2 views of the shoulder were acquired. COMPARISON: [facility], CR, XR SHOULDER LT MIN 2V, 12/17/2021, 11:55. FINDINGS: Bones: Anterior dislocation of a reversed total shoulder prosthesis. No suspicious bony lesions. Visualized ribs appear intact. Soft tissues: No suspicious soft tissue calcifications. IMPRESSION: Anterior dislocation of the shoulder prosthesis. Dictated by: Klaus Singleton M.D. on 06/22/2024 at 13:20 Approved by: Klaus Singleton M.D. on 06/22/2024 at 13:22
== END 2024-06-22 16:36 | disposition home or self-care (01) ==
PROVIDERS: Emergency Provider Emergency Medicine; PCP Family Medicine
DX: S43.005A Unspecified dislocation of left shoulder joint, initial encounter (principal); T84.028A Dislocation of other internal joint prosthesis, initial encounter; M25.512 Pain in left shoulder; M25.412 Effusion, left shoulder
CPT/HCPCS: 23650; 36415; 73030; 73200; 99152; 99284; J2704

== ENCOUNTER → 2025-02-12 10:59 | Outpatient (CLI) | payer MEDICARE, OTHER, SELFPAY ==
[2023-12-25 11:55] VITALS: BMI 31.2
--- NOTE | 2025-02-12 11:01 | DI.RAD.S_ITS ---
PROCEDURE: XR HIP W PEL IF DONE LT 2V INDICATIONS: lateral hip pain TECHNIQUE: AP pelvis with lateral view(s) of the left hip(s). COMPARISON: [facility], JENNIFER, XR HIP W PEL IF DONE RT 2V, 10/19/2022, 16:47. [facility], JENNIFER, HIPBILAT 3TO4V W PEL IF PERFD, 04/09/2015, 16:42. FINDINGS: Bones: No fractures or dislocations. Pelvic ring appears intact. No suspicious bony lesions. Mild degenerative arthrosis of both hips. Partially visualized lumbar fusion hardware with degenerative disc disease in the inferior lumbar spine and lumbosacral junction. Soft tissues: The visualized bowel gas pattern is normal. No suspicious soft tissue calcifications. Enthesophytosis at the bilateral greater trochanters. IMPRESSION: No acute osseous abnormality. If these by ptosis about the bilateral greater trochanters, which can be seen with chronic tendinopathy, correlate for symptoms of greater trochanteric pain syndrome in this patient with lateral hip pain. Dictated by: Darius Munson M.D. on 02/12/2025 at 16:03 Approved by: Darius Munson M.D. on 02/12/2025 at 16:03
== END ==
PROVIDERS: PCP Family Medicine; Referring Provider Physical Medicine & Rehabilitation; Visit Provider Physical Medicine & Rehabilitation
DX: M16.0 Bilateral primary osteoarthritis of hip (principal); M25.552 Pain in left hip; Z98.1 Arthrodesis status
CPT/HCPCS: 73502